=== PATIENT | female | born 1940 | race Caucasian/White ===

== ENCOUNTER 2016-04-25 08:51 | Emergency (ER) | payer OTHER ==
[~2016-04-25] VITALS: Ht 165.1 cm; Wt 65.0 kg
[~2016-04-25 08:51] MED LIST: CHOL1TAB46 PO; DIPH1TAB98 PO; FRRG PO; GLUCTAB7 PO; HYZ/50125 PO; RIVA1TAB4 PO; SIMV20TA2 PO; VERA120T8 PO
[2016-04-25 08:53] VITALS: TEMP 36.6; Ht 165.1 cm; Wt 65.0 kg
[2016-04-25] MEDS ORDERED: OXYCODONE HCL IR 5 MG TAB (IMMEDIATE RELEASE) PO STA (09:19)
--- NOTE | 2016-04-25 09:21 | EMERGENCY ROOM VISIT NOTE ---
History Report prepared by Clara: Mary Jane Vicente Under the Supervision of: Dr. Matt Snow D.O. First contact with patient: 08:59 Chief Complaint: WRIST PAIN Stated Complaint: WRIST INJURY/PAIN History of Present Illness The patient is a 75 year old female who presents to the Emergency Room with complaints of persistent pain to her right wrist after suffering a fall 5 days prior to arrival. Currently, she rates her discomfort as an 8/10, which worsens with movement and has not been improved after placing ice on it or taking Tylenol. At the time of onset, the patient was bending over on her porch to hot die picker her glasses when she lost her balance and fell, catching herself with her right wrist before falling to the stone covered landscaping. During the fall , the patient did bump the right side of her head, and she states that she was "stunned" as she had to collect her thoughts to get herself up, but she denies losing consciousness. She also notes mild pain to her left wrist, but she denies suffering injuries to her neck, back, chest, abdomen, or pelvis secondary to the fall. Since suffering the injury to her wrists, patient has been attempting to use ice, but as the pain has persisted, she came to the ED for further evaluation. Patient is currently on Xarelto. She is occasionally drinks alcohol and she is a former smoker. She does note some chronic pain to her left upper leg but she attributes this to lifting weights in physical therapy status post left hip replacement. Source of History: patient Onset: 901 Position: wrist (right) Symptom Intensity: 8/10 Timing: worsening Modifying Factors (Worsening): movement Modifying Factors (Relieving): other (No relief with ice) Associated Symptoms: No LOC, No back pain, No chest pain, No neck pain Note: Patient also has pain to her left wrist. She denies pain to her pelvis or lower extremities. Review of Systems See HPI for pertinent positives & negatives. A total of 10 systems reviewed and were otherwise negative. Past Medical & Surgical Medical Problems: (1) Arthritis (2) Dyslipidemia (3) HTN (hypertension) (4) Osteopenia Social History Smoking Status: Former Smoker Marital Status: Housing Status: lives with significant other Occupation Status: retired Current/Historical Medications Scheduled Atorvastatin (Atorvastatin Calcium), 20 MG PO DAILY Cholecalciferol (Vitamin D3), 5,000 UNITS PO QAM Zbaoidlyutw-Cbxrtyswbal-Khy C- (Glucosamine Chondroitin), 1 TAB PO BID Losartan Potassium (Losartan Potassium), 25 MG PO DAILY Omeprazole (Prilosec), 40 MG PO DAILY Rivaroxaban (Xarelto), 20 MG PO QPM Verapamil Hcl (Calan Sr Ext Rel), 120 MG PO QPM Scheduled PRN Oxycodone Immediate Rel Tab (Roxicodone Ir), 1 TAB PO Q4H PRN for Severe Pain Allergies Coded Allergies: Sulfa Antibiotics (Verified Allergy, Unknown, UNKNOWN, 04/25/16) Physical Exam Vital Signs Date Time Temp Pulse Resp B/P Pulse Ox O2 Delivery O2 Flow Rate FiO2 04/25/16 11:19 75 20 140/70 97 04/25/16 10:42 72 20 146/86 96 Room Air 04/25/16 08:53 36.6 74 18 163/63 97 Room Air Physical Exam GENERAL: Patient is awake, alert, and in no acute distress. Patient is resting comfortably and showing no signs of anxiety HEAD: Ecchymosis over the right side of the forehead. EYES: The conjunctivae are clear. The pupils are round and reactive. EARS, NOSE, MOUTH AND THROAT: The nose is without any evidence of any deformity. Mucous membranes are moist tongue is midline NECK: The neck is nontender and supple. RESPIRATORY: Normal respiratory effort is noted there is no evidence of wheezing rhonchi or rales CARDIOVASCULAR: Regular rate and rhythm noted there no murmurs rubs or gallops normal S1 normal S2 GASTROINTESTINAL: The abdomen is soft. Bowel sounds are present in all quadrants. Abdomen is nontender BACK: No midline tenderness or or step-off noted range of motion in flexion extension as well as rotation no signs of muscle spasm noted MUSCULOSKELETAL/EXTREMITIES: Tenderness over both wrists at the distal radius. ROM was painful but intact. Ecchymosis over the right medial forearm. SKIN: Trace edema, bilaterally. There is no obvious evidence of any rash. There are no petechiae, pallor or cyanosis noted. NEUROLOGIC: Patient is awake alert and oriented x3. Medical Decision & Procedures ER Provider Diagnostic Interpretation: X-ray results as stated below per interpretation by me and the radiologist. CT results as stated below per my review and radiologist interpretation. PELVIS 1 OR 2 VIEW ROUTINE CLINICAL HISTORY: Fall. Left femur pain. COMPARISON STUDY: Pelvis radiograph October 05, 2014. FINDINGS: Alignment of the total left hip arthroplasty is anatomic. No acute fracture within the pelvis or hips is identified. There is mixed lucency and sclerosis of the lateral aspect the right femoral head. This is not acute. IMPRESSION: 1. No acute fracture within the pelvis or hips. 2. Status post total left hip arthroplasty. Anatomic alignment. Hardware intact. 3. Subchondral lucency and sclerosis with cortical irregularity of the lateral right femoral head. This is not acute and could reflect arthritis or avascular necrosis. Electronically signed by: Jaquan Espinoza M.D. 04/25/2016 9:46 AM LEFT WRIST W/NAVICULAR MIN 3 VIEWS CLINICAL HISTORY: Fall. Wrist pain. COMPARISON STUDY: None. FINDINGS: Soft tissue swelling within the left wrist. No acute fracture or dislocation. The scaphoid appears intact. IMPRESSION: No fracture or dislocation within the left wrist. Electronically signed by: Josr Cruz M.D. 04/25/2016 9:[address] OF THE HEAD WITHOUT CONTRAST CLINICAL HISTORY: Fall. COMPARISON STUDY: Head CT August 04, 2011. CT DOSE: 1107.53 mGy.cm TECHNIQUE: Helical axial images of the head were obtained without IV contrast. Automated exposure control was utilized for the study. FINDINGS: No acute intracranial hemorrhage, midline shift or mass effect is present. Ventricular system is stable. Basilar cisterns are patent. There are no extra-axial collections. White matter hypodensities are unchanged and suggest small vessel disease. There is a small right supraorbital scalp contusion. There is no calvarial fracture. Globes are intact. IMPRESSION: 1. No acute intracranial findings. 2. Small right supraorbital contusion. No calvarial fracture. Electronically signed by: Jaquan Espinoza M.D. 04/25/2016 9:48 AM LEFT FEMUR 2 VIEWS ROUTINE CLINICAL HISTORY: Left femur pain status post trauma COMPARISON: Pelvis and left hip dated 10/05/2014 DISCUSSION: There are postsurgical changes of a total left hip arthroplasty. No acute fractures or dislocations are visualized. There are moderate osteoarthritic changes within the knee. IMPRESSION: Postsurgical change. No acute fractures or dislocations identified Electronically signed by: Cayden Miner M.D. 04/25/2016 9:[address] DOSE: HISTORY: Neck pain. fall TECHNIQUE: Multiaxial CT images of the cervical spine were performed and reformatted in the sagittal and coronal plane without the use of contrast. COMPARISON: None. FINDINGS: No fractures. No subluxation. Prevertebral soft tissues and the C1-C2 interval are intact. No pneumothorax. Mild disc space narrowing at C4-C5 and C5-C6. Multiple fused cervical spine facets. IMPRESSION: No fractures within the cervical spine. Electronically signed by: Josr Cruz M.D. 04/25/2016 9:55 AM Medications Administered Medications (Trade) Dose Ordered Sig/Anna Route Start Time Stop Time Status Last Admin Dose Admin Oxycodone HCl (Roxicodone Immediate Rel Tab) 5 mg NOW STAT PO 04/25/16 09:19 04/25/16 09:21 DC 04/25/16 09:46 5 MG ED Course 0902: The patient was evaluated in room B9. A complete history and physical examination were performed. 0919: Oxycodone HCl 5 mg PO was ordered. 0930: Zofran 4 mg PO was ordered. 1036: Upon reevaluation, patient was doing well and was resting more comfortably. I updated her on the results of her radiology reports that had returned. Some are still pending. 1104: I reevaluated the patient at this time and updated her on her remaining reports. A splint will be given. She will follow up with her primary orthopedist. Additional discharge instructions were discussed. Patient verbalized her understanding and agreement with the treatment plan, and she is now ready for disposition. Medical Decision Differential diagnosis: Etiologies such as fracture, dislocation, neurovascular compromise, compartment syndrome, soft tissue injury, as well as others were entertained. Nursing notes reviewed. The patient is a 75-year-old female who presented to the emergency department after a fall. The patient fell a few days ago she struck her head and also hurt both wrists. She also had left eye pain. The patient did not have any focal neurologic deficits but she did have signs of trauma on the right side of her head. She is also taking oral anticoagulation. Most of her pain appear to be over her right wrist. Left wrist x-ray did not show any signs of bony abnormality. She did have a distal radius fracture on the right wrist however. Her left eye did not show any signs of abnormality but she was found have some degree of arthritic changes in the right hip. CT the head and neck did not show any acute intercranial abnormality or cervical spine fracture. She was encouraged to rest and avoid any strenuous activity. She was placed. She was treated with pain medication in the emergency department. She was encouraged to follow-up with her primary orthopedic physician for follow-up of the right wrist but also to discuss the findings in her right hip which do not appear to be painful at this time. She was also encouraged to return to the emergency department immediately if symptoms change worsen or if the need arises. Impression Primary Impression: Fall Additional Impressions: Closed head injury, Contusion of left thigh, Fracture of right distal radius, Left wrist pain Scribe Attestation The scribe's documentation has been prepared under my direction and personally reviewed by me in its entirety. I confirm that the note above accurately reflects all work, treatment, procedures, and medical decision making performed by me. Departure Information Dispostion Home / Self-Care Prescriptions Oxycodone Immediate Rel Tab (ROXICODONE IR) 5 Mg Tab 1 TAB PO Q4H Y for Severe Pain, #24 TAB Prov: Matt Snow, DO 04/25/16 Referrals Dago Lozada Jr,D.O. (PCP) Forms HOME CARE DOCUMENTATION FORM, IMPORTANT VISIT INFORMATION, WORK / SCHOOL INSTRUCTIONS Patient Instructions A Signature Page, My [facility] [employer] Additional Instructions Continue medications as prescribed. Call your primary orthopedic physician to schedule a follow-up appointment. Continue using Motrin and Tylenol as directed for mild pain.
[2016-04-25] MEDS ORDERED: ONDANSETRON 4MG OD TAB PO ONE (09:30)
--- NOTE | 2016-04-25 09:43 | DIAGNOSTIC IMAGING REPORT ---
LEFT FEMUR 2 VIEWS ROUTINE CLINICAL HISTORY: Left femur pain status post trauma COMPARISON: Pelvis and left hip dated 10/05/2014 DISCUSSION: There are postsurgical changes of a total left hip arthroplasty. No acute fractures or dislocations are visualized. There are moderate osteoarthritic changes within the knee. IMPRESSION: Postsurgical change. No acute fractures or dislocations identified Electronically signed by: Cayden Miner M.D. 04/25/2016 9:41 AM
--- NOTE | 2016-04-25 09:47 | DIAGNOSTIC IMAGING REPORT ---
PELVIS 1 OR 2 VIEW ROUTINE CLINICAL HISTORY: Fall. Left femur pain. COMPARISON STUDY: Pelvis radiograph October 05, 2014. FINDINGS: Alignment of the total left hip arthroplasty is anatomic. No acute fracture within the pelvis or hips is identified. There is mixed lucency and sclerosis of the lateral aspect the right femoral head. This is not acute. IMPRESSION: 1. No acute fracture within the pelvis or hips. 2. Status post total left hip arthroplasty. Anatomic alignment. Hardware intact. 3. Subchondral lucency and sclerosis with cortical irregularity of the lateral right femoral head. This is not acute and could reflect arthritis or avascular necrosis. Electronically signed by: Jaquan Espinoza M.D. 04/25/2016 9:46 AM
--- NOTE | 2016-04-25 09:50 | DIAGNOSTIC IMAGING REPORT ---
LEFT WRIST W/NAVICULAR MIN 3 VIEWS CLINICAL HISTORY: Fall. Wrist pain. COMPARISON STUDY: None. FINDINGS: Soft tissue swelling within the left wrist. No acute fracture or dislocation. The scaphoid appears intact. IMPRESSION: No fracture or dislocation within the left wrist. Electronically signed by: Josr Cruz M.D. 04/25/2016 9:48 AM
--- NOTE | 2016-04-25 09:50 | DIAGNOSTIC IMAGING REPORT ---
CT OF THE HEAD WITHOUT CONTRAST CLINICAL HISTORY: Fall. COMPARISON STUDY: Head CT August 04, 2011. CT DOSE: 1107.53 mGy.cm TECHNIQUE: Helical axial images of the head were obtained without IV contrast. Automated exposure control was utilized for the study. FINDINGS: No acute intracranial hemorrhage, midline shift or mass effect is present. Ventricular system is stable. Basilar cisterns are patent. There are no extra-axial collections. White matter hypodensities are unchanged and suggest small vessel disease. There is a small right supraorbital scalp contusion. There is no calvarial fracture. Globes are intact. IMPRESSION: 1. No acute intracranial findings. 2. Small right supraorbital contusion. No calvarial fracture. Electronically signed by: Jaquan Espinoza M.D. 04/25/2016 9:48 AM
[2016-04-25] MEDS ORDERED: OMEP20CA9 PO (09:51)
[2016-04-25] MEDS ORDERED: CZR25 PO (09:51)
[2016-04-25] MEDS ORDERED: LPT/20 PO (09:51)
--- NOTE | 2016-04-25 09:57 | DIAGNOSTIC IMAGING REPORT ---
CERVICAL SPINE CT CT DOSE: HISTORY: Neck pain. fall TECHNIQUE: Multiaxial CT images of the cervical spine were performed and reformatted in the sagittal and coronal plane without the use of contrast. COMPARISON: None. FINDINGS: No fractures. No subluxation. Prevertebral soft tissues and the C1-C2 interval are intact. No pneumothorax. Mild disc space narrowing at C4-C5 and C5-C6. Multiple fused cervical spine facets. IMPRESSION: No fractures within the cervical spine. Electronically signed by: Josr Cruz M.D. 04/25/2016 9:55 AM
--- NOTE | 2016-04-25 10:49 | DIAGNOSTIC IMAGING REPORT ---
RIGHT WRIST W/NAVICULAR MIN 3 VIEWS CLINICAL HISTORY: Right wrist pain. COMPARISON: Right hand radiographs July 20, 2013. FINDINGS: The scaphoid is intact. Severe arthritis of the triscaphe joint and right first carpometacarpal joint is noted as well as degenerative changes of the distal radioulnar articulation. There is an equivocal nondisplaced fracture of the distal aspect of the distal right radius. IMPRESSION: Equivocal nondisplaced distal right radial fracture, as described above. Electronically signed by: Jaquan Espinoza M.D. 04/25/2016 10:47 AM
[2016-04-25] MEDS ORDERED: OXYC1TAB3 PO (11:05)
[2016-04-25 11:19] VITALS: BP 140/70; PULSE 75; O2SAT 97
== END 2016-04-25 11:19 | disposition home or self-care (01) ==
LOC: C.EDB 08:52
DX: S00.03XA Contusion of scalp, initial encounter (principal); S70.12XA Contusion of left thigh, initial encounter; S52.501A Unspecified fracture of the lower end of right radius, initial encounter for closed fracture; M25.532 Pain in left wrist; E78.5 Hyperlipidemia, unspecified; I10 Essential (primary) hypertension; Z87.891 Personal history of nicotine dependence; W17.89XA Other fall from one level to another, initial encounter; Y93.89 Activity, other specified; Y92.018 Other place in single-family (private) house as the place of occurrence of the external cause; Y99.8 Other external cause status

== ENCOUNTER → 2016-06-26 | Outpatient (CLI) | payer OTHER ==
[~2016-06-26] MED LIST changes: +CZR25 PO; -DIPH1TAB98 PO; +ESCI10TA17 PO; -FRRG PO; -HYZ/50125 PO; +LPT/20 PO; +OMEP20CA9 PO; +OXYC1TAB3 PO; +PRLSR20 PO; -SIMV20TA2 PO
--- NOTE | 2016-06-26 10:31 | DIAGNOSTIC IMAGING REPORT ---
BILATERAL KNEES 3 VIEWS EACH CLINICAL HISTORY: CHRONIC B/L KNEE PAIN Right COMPARISON STUDY: Bilateral knees 06/17/2007. FINDINGS: No acute fracture or dislocation within the right or left knee. Moderate cartilage space narrowing within the lateral compartments of the bilateral knees with associated marginal osteophytes. This has progressed in the interval. No significant knee effusion. There is mild bilateral patellofemoral osteoarthritis. IMPRESSION: 1. No fractures. 2. Mild to moderate bilateral knee osteoarthritis as described above. This has progressed. Electronically signed by: Josr Cruz M.D. 06/26/2016 10:29 AM Dictated Date/Time: 06/26/2016 10:27 AM
== END | disposition home or self-care (01) ==
LOC: C.RDSM 10:03
PROVIDERS: ATTEND Internal Medicine
DX: M25.569 Pain in unspecified knee (principal); M17.0 Bilateral primary osteoarthritis of knee

== ENCOUNTER → 2016-08-17 | Outpatient (CLI) | payer OTHER ==
[~2016-08-17] MED LIST changes: +ACET-1256 PO; +ACET-24 PO; +ADVAIR INH; +CHOL1000 PO; +DIPH1TAB98 PO; +FLUT0.15 INTNAS; +FRRG PO; +KETOCONAZOLE TOP; +MULT-190 PO; +ULT50X PO
[2016-08-17 13:14] LABS: BASO % 0.2 %; BASO ABS # 0.01 K/uL (0-0.2); COMPLETE YES; EOS % 4.9 %; IG% 0.5 %; LYMPH % 25.1 %; LYMPH ABS # 1.08 K/uL (1.2-3.4); MEAN CELL VOLUME 88.7 fL (80-100); MEAN CORPUSCULAR HGB CONC 33.9 g/dl (32-36); MEAN PLATELET VOLUME 8.5 fL (7.4-10.4); MONO % 13.5 %; NEUT % 55.8 %; PLATELET COUNT 293 K/uL (130-400); RED BLOOD COUNT 4.06 M/uL (4.2-5.4); WHITE BLOOD COUNT 4.31 K/uL (4.8-10.8)
[2016-08-17 13:59] LABS: ALT/SGPT 34 U/L (12-78); BLOOD UREA NITROGEN 13 mg/dl (7-18); C-REACTIVE PROTEIN < 0.29 mg/dl (0-0.29); CARBON DIOXIDE 27 mmol/L (21-32); CHLORIDE 105 mmol/L (98-107); CREATININE 0.65 mg/dl (0.60-1.20); GLUCOSE 78 mg/dl (70-99); POTASSIUM 4.5 mmol/L (3.5-5.1); SODIUM 139 mmol/L (136-145)
[2016-08-17 14:02] LABS: CALCIUM 8.9 mg/dl (8.5-10.1)
[2016-08-17 14:03] LABS: CREATININE 0.65 mg/dl (0.60-1.20)
[2016-08-17 14:09] LABS: ALB/GLOB RATIO 1.2 (0.9-2); ALKALINE PHOSPHATASE 160 U/L (45-117); AST/SGOT 31 U/L (15-37); RHEUMATOID FACTOR < 10.0 U/mL (0-15)
[2016-08-17 16:37] LABS: LYME DISEASE AB IGM NEG (NEG)
[2016-08-17 16:40] LABS: LYME DISEASE AB IGG NEG (NEG)
[2016-08-20 15:44] LABS: ALBUMIN 3.8 G/DL (3.8-4.8); COLLECTION SAMPLE Venous; GAMMA GLOBULIN 0.9 G/DL (0.8-1.7); LEAD BLOOD 2 mcg/dL (<5); TOTAL PROTEIN 6.5 G/DL (6.2-8.3)
[2016-08-21 02:31] LABS: RAPID PLASMA REAGIN NONREACTIVE (NONREACT)
--- NOTE | 2016-08-24 10:05 | CODING QUERY MEDICAL NECESSITY ---
CQSUPPORTING DIAGNOSIS NEEDED A supporting diagnosis is required for the test/procedure performed on this patient in order for us to be reimbursed by the patient's insurance. Please provide a supporting diagnosis for the following test/procedure listed below next to the test name along with your signature. *If there is no additional diagnosis for this patient that would support the following test/procedure please document that below next to the test/procedure. Test(s)/Procedure(s) that require a supporting diagnosis: DOS 08/17/16 VITAMIN D TEST SCREENING SEXUALLY TRANSMITTED DISEASE TEST Provider Signature: Date: Thank you Rima Wagner Health Information Management Once completed, please kindly fax back to [phone] For questions please call [phone]
== END | disposition home or self-care (01) ==
LOC: C.LAB 12:14
PROVIDERS: ATTEND Psychiatry & Neurology Neurology
DX: I10 Essential (primary) hypertension (principal); E78.5 Hyperlipidemia, unspecified; G62.9 Polyneuropathy, unspecified; R48.2 Apraxia; I67.9 Cerebrovascular disease, unspecified; R41.3 Other amnesia; E55.9 Vitamin D deficiency, unspecified; N89.8 Other specified noninflammatory disorders of vagina

== ENCOUNTER → 2016-08-21 | Outpatient (CLI) | payer OTHER ==
[~2016-08-21] MED LIST changes: +GADAVIST IV PRN
--- NOTE | 2016-08-21 13:53 | DIAGNOSTIC IMAGING REPORT ---
MRI OF THE BRAIN WITHOUT AND WITH IV CONTRAST CLINICAL HISTORY: R41.3 Memory lossR48.2 Gait puhsubuG33.9 Cerebrovascular disease COMPARISON STUDY: Noncontrast head CT dated 04/25/2016, MRI the brain dated 12/12/2009 TECHNIQUE: MRI of the brain was performed from the vertex to the skull base utilizing various T1 and T2 weighted sequences. Following the IV administration of 6 mL of Gadavist contrast, additional enhanced images were obtained. FINDINGS: Sagittal T1, axial diffusion, proton density and T2 weighted axial, coronal FLAIR, and pre and post axial T1-weighted images were acquired. These were supplemented with post gadolinium coronal T1 weighted images. No intra or extra-axial mass lesions are visualized. Axial diffusion-weighted images reveal no evidence of acute or subacute infarction. There is no evidence of ventricular dilatation. Proton density T2-weighted and FLAIR images reveal scattered foci of increased T2 signal within the white matter, likely on a small vessel basis. The 6 mm focus of increased T2 signal within the left subcortical white matter remains unchanged from November 2009. There are no abnormal flow voids. 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 IMPRESSION: 1. No acute intracranial findings 2. No evidence of acute or subacute infarction 3. Prominent left occipital developmental venous anomaly Electronically signed by: Cayden Miner M.D. 08/21/2016 1:51 PM Dictated Date/Time: 08/21/2016 1:48 PM
== END | disposition home or self-care (01) ==
LOC: C.MRI 12:25
PROVIDERS: ATTEND Psychiatry & Neurology Neurology
DX: I67.9 Cerebrovascular disease, unspecified (principal); R41.3 Other amnesia; R48.2 Apraxia

== ENCOUNTER → 2016-12-11 | Outpatient (CLI) | payer OTHER ==
[~2016-12-11] MED LIST changes: -ACET-1256 PO; -ACET-24 PO; -ADVAIR INH; -CHOL1000 PO; -DIPH1TAB98 PO; -FLUT0.15 INTNAS; -FRRG PO; -GADAVIST IV PRN; -KETOCONAZOLE TOP; -MULT-190 PO; -OXYC1TAB3 PO; -ULT50X PO
[2016-12-11 12:22] LABS: BASO % 0.5 %; BASO ABS # 0.02 K/uL (0-0.2); COMPLETE YES; EOS % 9.1 %; HEMATOCRIT 38.9 % (37-47); IG% 0.2 %; LYMPH % 20.2 %; LYMPH ABS # 0.84 K/uL (1.2-3.4); MEAN CORPUSCULAR HEMOGLOBIN 29.9 pg (25-34); MEAN CORPUSCULAR HGB CONC 33.2 g/dl (32-36); MEAN PLATELET VOLUME 8.5 fL (7.4-10.4); MONO % 20.7 %; NEUT % 49.3 %; PLATELET COUNT 296 K/uL (130-400); RED BLOOD COUNT 4.32 M/uL (4.2-5.4); WHITE BLOOD COUNT 4.16 K/uL (4.8-10.8)
[2016-12-11 12:41] LABS: ALT/SGPT 20 U/L (12-78); AST/SGOT 13 U/L (15-37); BLOOD UREA NITROGEN 9 mg/dl (7-18); BUN/CREATININE RATIO 12.1 (10-20); CALCIUM 8.4 mg/dl (8.5-10.1); CARBON DIOXIDE 28 mmol/L (21-32); CHLORIDE 104 mmol/L (98-107); CREATININE 0.75 mg/dl (0.60-1.20); GLUCOSE 76 mg/dl (70-99); POTASSIUM 4.3 mmol/L (3.5-5.1); SODIUM 136 mmol/L (136-145)
[2016-12-11 12:52] LABS: CHOLESTEROL 193 mg/dl (0-200); CHOLESTEROL/HDL RATIO 3.1; HDL CHOLESTEROL 63 mg/dl; LDL CHOLESTEROL CALCULATED 114 mg/dl; TRIGLYCERIDES 82 mg/dl (0-150); VERY LOW DENSITY LIPOPROT CALC 16 mg/dl
== END | disposition home or self-care (01) ==
LOC: C.LABPVFM 08:10
DX: E78.5 Hyperlipidemia, unspecified (principal); I10 Essential (primary) hypertension; R53.83 Other fatigue

== ENCOUNTER 2017-01-24 07:48 | Emergency (ER) | payer OTHER ==
[~2017-01-24] VITALS: Ht 165.1 cm; Wt 63.6 kg
[~2017-01-24 07:48] MED LIST changes: -ESCI10TA17 PO; -PRLSR20 PO
[2017-01-24 07:52] VITALS: TEMP 36.7; Ht 165.1 cm; Wt 63.6 kg
--- NOTE | 2017-01-24 08:11 | EMERGENCY ROOM VISIT NOTE ---
History Report prepared by Clara: Sherri Monroy Under the Supervision of: Dr. Joni Orr M.D. First contact with patient: 08:02 Chief Complaint: FALL Stated Complaint: FELL ON CONCRETE X 2 DAYS, EDEMA History of Present Illness The patient is a 76 year old female who presents to the Emergency Room with complaints of worsening bruising to her left elbow that began two days ago. The patient reports that two days ago she fell due to losing her balance. She states that she fell onto her left elbow onto a concrete sidewalk. The patient denies any head injury, loss of consciousness, or left shoulder pain. She states that for the past two days she noticed a stinging pain to her left elbow. The patient states that she gradually noticed bruising develop. She states that she is on Xarelto. The patient states that she has used ice on the area. She additionally notes falling onto her left hip, but denies any bruising or pain to the area. Source of History: patient Onset: two days ago Position: elbow (left) Quality: other (bruising) Timing: worsening Associated Symptoms: No LOC Note: Associated Symptoms: pain to her left elbow Review of Systems See HPI for pertinent positives & negatives. A total of 6 systems reviewed and were otherwise negative. Past Medical & Surgical Medical Problems: (1) Arthritis (2) Dyslipidemia (3) HTN (hypertension) (4) Osteopenia Family History Hypertension Social History Smoking Status: Former Smoker Marital Status: Housing Status: lives with significant other Occupation Status: retired Current/Historical Medications Scheduled Cholecalciferol (Vitamin D3), 5,000 UNITS PO QAM Escitalopram (Lexapro), 10 MG PO DAILY Bttfdtbkmnf-Qksgooaiaia-Tfm C- (Glucosamine Chondroitin), 1 TAB PO DAILY Losartan Potassium (Losartan Potassium), 25 MG PO DAILY Omeprazole (Prilosec), 40 MG PO DAILY Rivaroxaban (Xarelto), 20 MG PO QAM Verapamil Hcl (Calan Sr Ext Rel), 120 MG PO QPM Allergies Coded Allergies: Sulfa Antibiotics (Verified Allergy, Unknown, UNKNOWN, 04/25/16) Physical Exam Vital Signs Date Time Temp Pulse Resp B/P (MAP) Pulse Ox O2 Delivery O2 Flow Rate FiO2 01/24/17 09:21 65 18 170/82 97 01/24/17 09:12 65 18 170/82 97 Room Air 01/24/17 07:52 36.7 89 20 143/81 97 Room Air Physical Exam GENERAL: Patient is in no acute distress. EXTREMITIES: Contusion about the posterior left arm from the mid bicep to the mid forearm, no evidence for cellulitis or active bleeding, no obvious elbow or joint effusion, no pain to palpate the bones of the elbow, NVI distally in the left upper extremity. NEUROLOGIC: Oriented x 3, no acute motor or sensory deficits, no focal weakness. Medical Decision & Procedures ER Provider Diagnostic Interpretation: X-ray results as stated below per interpretation by me and the radiologist: LEFT ELBOW 3 VIEWS CLINICAL HISTORY: Fall with left elbow pain. FINDINGS: 3 views of the left elbow are obtained. No prior studies are available for comparison at the time of dictation. The skeletal structures are osteopenic. No distracted fracture is identified. The elbow joint appears in anatomic alignment. There is an elbow joint effusion. Significant soft tissue edema is present around the elbow, greatest medially. IMPRESSION: 1. No distracted fracture is identified. 2. There is a joint effusion as well as soft tissue edema. These findings are highly concerning for occult fracture, statistically likely to involve the radial head in this age group. Electronically signed by: Joni Foster M.D. 01/24/2017 8:43 AM Dictated Date/Time: 01/24/2017 8:32 AM ED Course 0803: The patient was evaluated in room B10. A complete history and physical exam was performed. 0908: I reevaluated the patient and she is resting comfortably. I discussed the exam findings with her and I discussed the treatment plan. She verbalized complete understanding and agreement. She is ready to go home. Medical Decision The patient is a 76 year old female who presents to the ED with complaints of left elbow bruising. Differential diagnoses considered include Fracture, hematoma, dislocation, neurovascular compromise. The patient presents with a contusion and injury to her left elbow. She is on Xarelto. She fell a few days ago. The patient was neurovascularly intact distally. There was no evidence for cellulitis or active bleeding. Films of the left elbow show an effusion and are concerning for occult fracture. The patient was placed in a left arm sling. She is being referred to orthopedics for further potential care. She was happy with her care and plan. Medication Reconcilliation Current Medication List: was personally reviewed by me Blood Pressure Screening Patient's blood pressure: Elevated blood pressure Blood pressure disposition: Elevated BP felt to be situational, Did not require urgent referral Impression Primary Impression: Left elbow contusion Additional Impression: Coagulopathy Scribe Attestation The scribe's documentation has been prepared under my direction and personally reviewed by me in its entirety. I confirm that the note above accurately reflects all work, treatment, procedures, and medical decision making performed by me. Departure Information Dispostion Home / Self-Care Referrals Dago Lozada Jr,D.O. (PCP) Forms HOME CARE DOCUMENTATION FORM, IMPORTANT VISIT INFORMATION Patient Instructions My [facility] Additional Instructions ice wear the sling for comfort call orthopedics and see them this week for clearance return for fever, worsening pain or redness Problem Qualifiers
--- NOTE | 2017-01-24 08:45 | DIAGNOSTIC IMAGING REPORT ---
LEFT ELBOW 3 VIEWS CLINICAL HISTORY: Fall with left elbow pain. FINDINGS: 3 views of the left elbow are obtained. No prior studies are available for comparison at the time of dictation. The skeletal structures are osteopenic. No distracted fracture is identified. The elbow joint appears in anatomic alignment. There is an elbow joint effusion. Significant soft tissue edema is present around the elbow, greatest medially. IMPRESSION: 1. No distracted fracture is identified. 2. There is a joint effusion as well as soft tissue edema. These findings are highly concerning for occult fracture, statistically likely to involve the radial head in this age group. Electronically signed by: Joni Foster M.D. 01/24/2017 8:43 AM Dictated Date/Time: 01/24/2017 8:32 AM
[2017-01-24 09:21] VITALS: BP 170/82; PULSE 65; O2SAT 97
[2017-01-24] MEDS ORDERED: PRLSR20 PO (10:21)
[2017-01-24] MEDS ORDERED: ESCI10TA17 PO (10:21)
== END 2017-01-24 09:21 | disposition home or self-care (01) ==
LOC: C.EDB 07:50
DX: S50.02XA Contusion of left elbow, initial encounter (principal); W19.XXXA Unspecified fall, initial encounter; Y92.480 Sidewalk as the place of occurrence of the external cause; Z79.01 Long term (current) use of anticoagulants; M19.90 Unspecified osteoarthritis, unspecified site; E78.5 Hyperlipidemia, unspecified; I10 Essential (primary) hypertension; M85.80 Other specified disorders of bone density and structure, unspecified site; Z82.49 Family history of ischemic heart disease and other diseases of the circulatory system; Z87.891 Personal history of nicotine dependence; Z79.899 Other long term (current) drug therapy

== ENCOUNTER 2017-03-22 05:16 | Inpatient (IN) | payer OTHER ==
[2017-03-01 11:07] VITALS: BMI 22.0
--- NOTE | 2017-03-01 11:52 | PAT Medication Instructions ---
Service Date Mar 01, 2017. Current Home Medication List Acetaminophen (Tylenol), 1,000 MG PO PRN Cholecalciferol (Vitamin D3), 5,000 UNITS PO QPM Diphenhydramine Hcl (Sleep) (Sleep Aid), 25 MG PO HS PRN for RN Escitalopram (Lexapro), 10 MG PO QAM Fluticasone Propionate (Nasal) (Flonase Allergy Relief), 2 SPRAYS INTNAS BID Flcnfdwcsbk-Amianukdpro-Ram C- (Glucosamine Chondroitin), 1 TAB PO QPM Losartan Potassium (Losartan Potassium), 25 MG PO QAM Ocuvite Preservision (Ocuvite Preservision), 1 TAB PO BID Omeprazole (Prilosec), 40 MG PO QPM Rivaroxaban (Xarelto), 20 MG PO QAM Verapamil Hcl (Calan Sr Ext Rel), 120 MG PO QPM [Advair], 2 PUFFS INH PRN [Ketoconazole], 1 DOSE TOP 2XWEEK Medication Instructions For Your Scheduled Surgery - Hold the following medications 2 weeks prior to surgery: Kzswfidzkax-Vhsxlafjmaw-Jra C- (Glucosamine Chondroitin), 1 TAB PO QPM - Hold the following medications 3 days prior to surgery: Rivaroxaban (Xarelto), 20 MG PO QAM - Hold the following medications 24 hours prior to surgery: [Ketoconazole], 1 DOSE TOP 2XWEEK - Hold the following medications the morning of surgery: Losartan Potassium (Cozaar), 25 MG PO QAM Ocuvite Preservision (Ocuvite Preservision), 1 TAB PO BID - Take the following medications the morning of surgery with a sip of water OTHERWISE NOTHING TO EAT OR DRINK AFTER MIDNIGHT: Acetaminophen (Tylenol), 1,000 MG PO PRN Escitalopram (Lexapro), 10 MG PO QAM Fluticasone Propionate (Nasal) (Flonase Allergy Relief), 2 SPRAYS INTNAS BID [Advair], 2 PUFFS INH PRN - Take the following medications as scheduled the night before surgery: Acetaminophen (Tylenol), 1,000 MG PO PRN Omeprazole (Prilosec), 40 MG PO QPM Cholecalciferol (Vitamin D3), 5,000 UNITS PO QPM Verapamil Hcl (Calan Sr Ext Rel), 120 MG PO QPM Diphenhydramine Hcl (Sleep) (Sleep Aid), 25 MG PO HS PRN Fluticasone Propionate (Nasal) (Flonase Allergy Relief), 2 SPRAYS INTNAS BID Ocuvite Preservision (Ocuvite Preservision), 1 TAB PO BID [Advair], 2 PUFFS INH PRN If you have any questions please call us at [phone] or [phone] or [phone]
[2017-03-01 12:21] LABS: INR 1.1 (0.9-1.1); PARTIAL THROMBOPLASTIN RATIO 1.4
--- NOTE | 2017-03-01 12:28 | DIAGNOSTIC IMAGING REPORT ---
CHEST PREADMISSION(PA/LAT) CLINICAL HISTORY: PAT preoperative evaluation COMPARISON STUDY: 09/02/2014 FINDINGS: Bipolar cardiac pacer with leads in good position. Lungs are clear. Calcified bilateral breast implants are again noted. IMPRESSION: No acute process. The above report was generated using voice recognition software. It may contain grammatical, syntax or spelling errors. Electronically signed by: Tunde Araujo M.D. 03/01/2017 12:27 PM Dictated Date/Time: 03/01/2017 12:27 PM
--- NOTE | 2017-03-15 11:38 | HISTORY & PHYSICAL EXAMINATION ---
DATE OF ADMISSION: 03/22/2017 CHIEF COMPLAINT: Right hip pain. HISTORY OF PRESENT ILLNESS: The patient is a 76-year-old female well known to me from a previous left hip replacement done a little over 2 years ago. She has had persistent progressive pain and discomfort in her right hip. 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 She was planning on having a hip replacement and then fell and broke her thumb little over a month ago. She had multiple falls and this is all related to her hip pain and discomfort. Her thumb has healed up now. She would like to proceed with right hip replacement. She describes groin pain. Also, reports of instability and giving out of her hip. She does no want to keep living like this and would like to have her hip fixed. PAST MEDICAL HISTORY: Significant for: 1. Atrial fibrillation followed by Dr. Saul with a pacemaker in place and on Xarelto. 2. Hypertension. 3. Elevated cholesterol. 4. Arthritis. PAST SURGICAL HISTORY: 1. Left hip replacement on 06/07/2014. 2. x2. 3. Pacemaker placement. 4. Hysterectomy. ALLERGIES: None. CURRENT MEDICATIONS: 1. Xarelto 20 mg a day. 2. Cozaar 25 mg a day. 3. Verapamil 120 mg a day. 4. Lexapro 10 mg a day. 5. Prilosec 40 mg a day. 6. Vitamin D once a day. 7. Glucosamine chondroitin. SOCIAL HISTORY: A 76-year-old female. She is . Lives with her and takes excellent care of her. FAMILY HISTORY: Negative for heart disease, diabetes, or blood clots. REVIEW OF SYSTEMS: Significant for atrial fibrillation. Denies any chest pain or shortness of breath. No history of DVT or PE. She is from [place]. She is on Xarelto. PHYSICAL EXAMINATION: GENERAL: Reveals a pleasant elderly female who looks to be in pretty good health. HEENT: Benign. NECK: Supple no lymphadenopathy. HEART: Has irregularly irregular rhythm. ABDOMEN: Soft, nontender, nondistended. EXTREMITIES: Grossly neurovascularly intact except as follows: Examination of the right hip and leg reveals the patient walks with significant limp. Leg lengths clinically appear equal. She has pretty good hip motion with about 10 degrees internal rotation. Negative straight leg raise. She is neurologically intact. X-RAYS: X-rays of the right hip reveal avascular necrosis with femoral head collapse. Pretty large large segment of AVN. Not a lot of secondary degenerative changes but flattening of the head. ASSESSMENT: A 76-year-old female with underlying atrial fibrillation with right hip avascular necrosis with collapse now indicated for surgical treatment. She really like to have her hip fixed. PLAN: We are going to take her to the operating room for right total hip replacement. The risks and benefits of this procedure were explained to the patient including but not limited to DVT, PE, , infection, neurological injury, vascular injury, bleeding problem, pain, limited range of motion, stiffness, failure to relieve her symptoms, incomplete relief of symptoms, need for further surgery in the future, fracture, leg length inequality, nerve palsy, etc. The patient understands and desires to proceed. Informed consent was obtained. She knows to stop her Xarelto 3 days preop. We will start her on prophylactic doses postop and then convert her to full dose 2-3 days after that. We will likely have Dr. Saul follow her in the hospital. She is planning to be discharged to home using home health program and her 's care. I will see her back 2 weeks postop.
[2017-03-22] VITALS (10 sets, daily range): BP systolic 127–196; BP diastolic 70–99; PULSE 61–68; TEMP 36.3–37; O2SAT 95–100; Ht 165.1 cm; Wt 62.3 kg
[~2017-03-22] VITALS: Ht 165.1 cm; Wt 62.3 kg
[~2017-03-22 05:16] MED LIST changes: +ACET-1256 PO; +ADVAIR INH; +CHOL1000 PO; -CHOL1TAB46 PO; +DIPH1TAB98 PO; +ESCI10TA17 PO; +FLUT0.15 INTNAS; +KETOCONAZOLE TOP; -LPT/20 PO; +MULT-190 PO
[2017-03-22] MEDS ORDERED: SCOPOLAMINE 1.5 MG TDSY TD SCH (06:00)
[2017-03-22] MEDS ORDERED: CEFAZOLIN 2000MG IV PUSH 10 ML IV SCH (06:00)
[2017-03-22] MEDS ORDERED: GABAPENTIN 300 MG CAP PO SCH (06:00)
[2017-03-22] MEDS ORDERED: FAMOTIDINE 20 MG TAB PO SCH (06:00)
[2017-03-22] MEDS ORDERED: TRANEXAMIC ACID INJ 1,000 MG in SYRINGE 0 ML IV SCH (06:00)
[2017-03-22] MEDS ORDERED: METOCLOPRAMIDE HCL 10 MG TAB PO SCH (06:00)
[2017-03-22] MEDS ORDERED: ACETAMINOPHEN 500 MG TAB PO SCH (06:00)
[2017-03-22] MEDS ORDERED: LACTATED RINGER'S 1000ML IV SCH (06:00)
[2017-03-22] MEDS ORDERED: LACTATED RINGER'S 1000ML 500 ML IV ONE (06:00)
[2017-03-22] MEDS ORDERED: LACTATED RINGER'S 1000ML 1,000 ML IV SCH (06:00)
[2017-03-22] MEDS ORDERED: BACITRACIN 50000 UNIT VIAL ONE (06:34)
[2017-03-22] MEDS ORDERED: BUPIVACAINE/EPINEPHRINE 0.5% MPF 1:200,000 30 ML VIAL ONE (06:34)
[2017-03-22] MEDS ORDERED: BUPIVACAINE 0.5 % 5 MG/1 ML PF 10ML VIAL ONE (06:37)
[2017-03-22] MEDS ORDERED: MIDAZOLAM HCL 1 MG/ML 2ML VIAL ONE ×3 (06:45→07:45)
[2017-03-22] MEDS ORDERED: FENTANYL CITRATE INJ 50 MCG/1 ML 2 ML VIAL ONE (06:45)
--- NOTE | 2017-03-22 06:56 | History & Physical Bridge Note ---
H&P Re-Evaluation Bridge Note: I have examined the patient, reviewed the History & Physical and in the interval since the performance of the History & Physical I have noted the following changes of clinical significance: No changes noted
[2017-03-22] MEDS ORDERED: PROPOFOL IV EMULSION 10 MG/ML 20 ML VIAL IV ONE (07:25)
[2017-03-22] MEDS ORDERED: LIDOCAINE HCL 2% 2 ML VIAL (20MG/ML) ONE (07:25)
[2017-03-22] MEDS ORDERED: ATROPINE SULFATE 0.1 MG/ML 5ML SYR IV PRN (07:30)
[2017-03-22] MEDS ORDERED: FENTANYL CITRATE INJ 50 MCG/1 ML 2 ML VIAL IV PRN (07:30)
[2017-03-22] MEDS ORDERED: EpHEDrine SULFATE INJ 50 MG/ML AMP IV PRN (07:30)
[2017-03-22] MEDS ORDERED: ONDANSETRON INJ 2 MG/ML 2 ML VIAL IV PRN ×2 (07:30→08:45)
[2017-03-22] MEDS ORDERED: PHENYLEPHRINE 100MCG/ML 5ML SYR ONE (07:57)
--- NOTE | 2017-03-22 08:33 | [facility] Post Operative Brief Note ---
Immediate Operative Summary Operative Date Mar 22, 2017. Pre-Operative Diagnosis Right Hip Avascular Necrosis Post-Operative Diagnosis Right Hip Avascular Necrosis Procedure(s) Performed Right Total Hip Arthroplasty--Uncemented Surgeon Dr. Hart Snaker Tractor Driver Surgeon(s) TUNDE Vargas Estimated Blood Loss 200 ml Findings Right Hip AVN Fluids (cc crystalloids) 1200 cc Specimens A. Right Femoral Head Drains None Anesthesia Spinal Complication(s) None Disposition Recovery Room / PACU
[2017-03-22] MEDS ORDERED: BISACODYL 10 MG SUPP PR PRN (08:45)
[2017-03-22] MEDS ORDERED: METOCLOPRAMIDE HCL INJ 5 MG/ML 2 ML VIAL IV PRN (08:45)
[2017-03-22] MEDS ORDERED: FLUTICASONE/SALMETEROL 250/50 (ADVAIR) 14 PUFF/1 INHALER INH PRN (08:45)
[2017-03-22] MEDS ORDERED: ALUMINUM/MAGNESIUM/SIMETH (MAALOX MAX) 30 ML UDC PO PRN (08:45)
[2017-03-22] MEDS ORDERED: MAGNESIUM HYDROXIDE SUSP 30 ML UDC PO PRN (08:45)
[2017-03-22] MEDS ORDERED: ZOLPIDEM TARTRATE 5 MG TAB PO PRN (08:45)
[2017-03-22] MEDS ORDERED: HYDROmorphone INJ 0.5 MG/0.5 ML SYR IV PRN (08:45)
--- NOTE | 2017-03-22 09:06 | DIAGNOSTIC IMAGING REPORT ---
R PELVIS/UNILATERAL HIP 1 VIEW CLINICAL HISTORY: IN PACU - A/P PELVIS and LATERAL HIP INCLUDING ALL OF IMPLANT COMPARISON: None. DISCUSSION: Total right hip arthroplasty in good position. Expected soft tissue postoperative changes. Pre-existing total left hip arthroplasty. IMPRESSION: Anatomic alignment status post total right hip arthroplasty The above report was generated using voice recognition software. It may contain grammatical, syntax or spelling errors. Electronically signed by: Tunde Araujo M.D. 03/22/2017 9:05 AM Dictated Date/Time: 03/22/2017 9:04 AM
--- NOTE | 2017-03-22 09:33 | Anesthesiology Progress Note ---
Anesthesia Post Op Note Date & Time Mar 22, 2017 at 09:33 Vital Signs Pain Intensity: 0 Vital Signs Past 12 Hours Date Time Temp Pulse Resp B/P (MAP) Pulse Ox O2 Delivery O2 Flow Rate FiO2 03/22/17 09:30 36.5 60 15 122/58 93 Nasal Cannula 4 03/22/17 09:15 36.5 60 18 114/57 99 Nasal Cannula 4 03/22/17 09:00 60 16 130/63 99 Nasal Cannula 4 03/22/17 08:50 60 16 125/58 99 Nasal Cannula 4 03/22/17 08:40 60 16 111/50 98 Nasal Cannula 4 03/22/17 08:30 36.4 60 16 127/52 98 Nasal Cannula 4 03/22/17 05:54 36.6 66 18 127/99 97 Room Air Notes Mental Status: alert / awake / arousable, participated in evaluation Pt Amnestic to Procedure: Yes Nausea / Vomiting: adequately controlled Pain: adequately controlled Airway Patency, RR, SpO2: stable & adequate BP & HR: stable & adequate Hydration State: stable & adequate Neuraxial Anesthesia: was administered, sensory block is resolving Anesthetic Complications: no major complications apparent
[2017-03-22] MEDS: D5W AND 1/2NSS + 20MEQ KCL 1,000 ML IV SCH ×2 (11:15→20:55)
[2017-03-22 11:56] LABS: CREATININE 0.65 mg/dl (0.60-1.20)
[2017-03-22] MEDS: PANTOprazole SOD 40 MG TAB PO SCH (12:41)
[2017-03-22] MEDS: FERROUS GLUCONATE 324 MG TAB PO SCH ×2 (12:41→18:44)
[2017-03-22] MEDS: TRAMADOL HCL 50 MG TAB PO PRN ×3 (12:45→23:39)
[2017-03-22] MEDS: KETOROLAC TROMETHAMINE 15 MG/ML VIAL IV. SCH ×2 (13:24→20:54)
[2017-03-22] MEDS: ACETAMINOPHEN 500 MG TAB PO SCH ×2 (13:25→20:59)
[2017-03-22] MEDS ORDERED: TRANEXAMIC ACID INJ 1,000 MG in SODIUM CHLORIDE 0.9% 100ML 100 ML IV ONE (14:30)
[2017-03-22] MEDS: CEFAZOLIN IV 1,000 MG in SYRINGE 0 ML IV SCH ×2 (14:32→23:38)
[2017-03-22] MEDS: CHECK SCOPOLAMINE PATCH PLACEMENT SCH ×2 (16:00→23:35)
--- NOTE | 2017-03-22 16:45 | Cardiology Consultation ---
Cardiology Consultation Date of Consultation: Mar 22, 2017. Requesting Physician: Tanner Reason for Consultation: PAF, valvular heart disease History of Present Illness Patient is a 68-year-old woman with a known history paroxysmal atrial fibrillation, bradycardia and valvular heart disease who underwent right total hip arthroplasty earlier today. Leading up to her surgery the patient was having some difficulty with ambulation. She had chronic pain in the right hip area and did suffer a fall related to some balance and stability issues. She was however, ambulatory and did not have other symptoms associated with exertion. She did not describe limiting dyspnea or dyspnea on exertion. She did not report orthopnea or paroxysmal nocturnal dyspnea. She generally sleeps on 2 pillows been doing this for some time. She has some very mild lower extremity edema which is not changed recently. She has not been aware of any palpitations. She has not had any dizziness recently. She has not any symptoms of chest discomfort. Currently she does have some right hip discomfort which is tolerable. She is not having chest discomfort. She is not aware of any palpitations. She denies any significant breathing trouble in his lying flat in bed. Past Medical/Surgical History Paroxysmal atrial fibrillation Mitral regurgitation moderate to severe Hypertension Hyperlipidemia Sick sinus syndrome status post pacemaker implantation Surgical history Appendectomy left and right total hip arthroplasty Tonsillectomy Dilation and curettage section Total abdominal hysterectomy and tubal ligation Breast augmentation Family History Hypertension Noncontributory given her advanced age Social History Smoking Status: Former Smoker History of Alcohol Use: Yes (7 DRINKS/WEEK) Review of Systems Patient did suffer a recent fall and had a fractured thumb. This appears to be well healed currently. She also describes some nasal congestion at nighttime with postnasal drainage. She has an associated cough productive of clear sputum. All Other Systems: Reviewed and Negative Allergies Coded Allergies: Sulfa Antibiotics (Verified Allergy, Unknown, RASH, 03/22/17) Medications Current Inpatient Medications Medications (Trade) Dose Ordered Sig/Anna Route Start Time Stop Time Status Last Admin Dose Admin Lactated Ringer's 1,000 ml @ 60 mls/hr [id number] IV 03/22/17 06:00 03/22/17 22:39 03/22/17 06:23 60 MLS/HR Cefazolin Sodium 10 ml @ 2.5 mls/min PREOP IV 03/22/17 06:00 03/22/17 18:00 03/22/17 06:58 2.5 MLS/MIN Acetaminophen (Tylenol Tab) 1,000 mg PREOP PO 03/22/17 06:00 03/22/17 18:00 03/22/17 06:22 1,000 MG Famotidine (Pepcid Tab) 20 mg PREOP PO 03/22/17 06:00 03/22/17 18:00 03/22/17 06:22 20 MG Gabapentin (Neurontin Cap) 300 mg PREOP PO 03/22/17 06:00 03/22/17 18:00 03/22/17 06:22 300 MG Metoclopramide HCl (Reglan Tab) 10 mg PREOP PO 03/22/17 06:00 03/22/17 18:00 03/22/17 06:22 10 MG Miscellaneous (Remove Transderm-Scop Patch) 1 ea Q72H N/A 03/25/17 06:00 03/25/17 06:01 Miscellaneous Information (Check Scopolamine Patch Placement) 1 ea QS N/A 03/22/17 16:00 03/25/17 05:59 Lactated Ringer's 1,000 ml @ 15 mls/hr Q24H IV 03/22/17 06:00 03/23/17 05:59 Potassium Chloride/Dextrose/ Sod Cl 1,000 ml @ 100 mls/hr Q10H IV 03/22/17 11:00 03/23/17 10:59 03/22/17 11:15 100 MLS/HR Ketorolac Tromethamine (Toradol Inj) 15 mg Q6H IV. 03/22/17 14:00 03/24/17 13:59 03/22/17 13:24 15 MG Acetaminophen (Tylenol Tab) 1,000 mg Q8H PO 03/22/17 14:00 04/21/17 13:59 03/22/17 13:25 1,000 MG Magnesium Hydroxide (Milk Of Magnesia Susp) 30 ml Q6H PRN PO 03/22/17 08:45 04/21/17 08:44 Bisacodyl (Dulcolax Supp) 10 mg DAILY PRN MO 03/22/17 08:45 04/21/17 08:44 Senna (Senokot Tab) 17.2 mg HS PO 03/22/17 21:00 04/21/17 20:59 Docusate Sodium (coLACE CAP) 100 mg BID PO 03/22/17 21:00 04/21/17 20:59 Al Hydrox/Mg Hydrox/Simethicone (Maalox Max Susp) 15 ml Q4H PRN PO 03/22/17 08:45 04/21/17 08:44 Zolpidem Tartrate (Ambien Tab) 5 mg HSZ PRN PO 03/22/17 08:45 04/21/17 08:44 Multivitamins (Multivitamin Tab) 1 tab QAM PO 03/23/17 09:00 04/22/17 08:59 Ondansetron HCl (Zofran Inj) 4 mg Q6H PRN IV 03/22/17 08:45 04/21/17 08:44 Metoclopramide HCl (Reglan Inj) 10 mg Q6H PRN IV 03/22/17 08:45 04/21/17 08:44 Ferrous Gluconate (Ferrous Gluconate Tab) 324 mg TIDM PO 03/22/17 12:30 04/21/17 12:29 03/22/17 12:41 324 MG Pantoprazole Sodium (Protonix Tab) 40 mg QAM PO 03/22/17 11:00 04/21/17 10:59 03/22/17 12:41 40 MG Tramadol HCl (Ultram Tab) 1 TABLET FOR PAIN RATING... Q4H PRN PO 03/22/17 08:45 04/21/17 08:44 03/22/17 12:45 100 MG Cefazolin Sodium 1000 mg/Syringe 5 ml @ 1.667 mls/ min Q8H IV 03/22/17 15:00 03/22/17 23:02 03/22/17 14:32 1.667 MLS/MIN Cholecalciferol (Vitamin D Tab) 800 inter.unit QPM PO 03/22/17 21:00 04/21/17 20:59 Escitalopram Oxalate (Lexapro Tab) 10 mg QAM PO 03/23/17 09:00 04/22/17 08:59 Fluticasone Propionate (Flonase Nasal [place]) 2 sprays BID NA 03/22/17 21:00 04/21/17 20:59 Losartan Potassium (coZAAR TAB) 25 mg QAM PO 03/23/17 09:00 04/22/17 08:59 Multivitamins/ Minerals (Multivitamin W/ Minerals Tab) 1 tab BID PO 03/22/17 21:00 04/21/17 20:59 Verapamil HCl (Calan-Sr Tab) 120 mg QPM PO 03/22/17 21:00 04/21/17 20:59 Salmeterol Xinafoate/ Fluticasone (Advair Diskus 250/50 Inh) 2 puff DAILY PRN INH 03/22/17 08:45 04/21/17 08:44 Miscellaneous Information (Order Awaiting Action) 1 ea QS N/A 03/22/17 16:00 04/21/17 15:59 Hydromorphone HCl (Dilaudid Inj) 0.5 mg Q1H PRN IV 03/22/17 08:45 04/05/17 08:44 Rivaroxaban (Xarelto Tab) 10 mg DAILY PO 03/23/17 09:00 04/22/17 08:59 Physical Exam Vital Signs Past 12 Hours Date Time Temp Pulse Resp B/P (MAP) Pulse Ox O2 Delivery O2 Flow Rate FiO2 03/22/17 14:50 36.5 66 16 172/83 (112) 96 Room Air 03/22/17 14:06 158/81 (106) 03/22/17 13:05 68 18 196/88 (124) 100 03/22/17 12:05 62 16 176/84 (114) 100 03/22/17 11:05 62 16 169/82 (111) 100 03/22/17 10:35 36.9 61 16 162/81 (108) 100 Nasal Cannula 3.0 03/22/17 10:05 36.3 62 16 158/72 (100) 100 Nasal Cannula 3.0 03/22/17 10:05 Nasal Cannula 3.0 03/22/17 10:05 100 Nasal Cannula 3.0 03/22/17 09:45 36.5 60 15 120/58 98 Nasal Cannula 4 03/22/17 09:30 36.5 60 15 122/58 93 Nasal Cannula 4 03/22/17 09:30 36.5 60 15 120/58 98 Nasal Cannula 4 03/22/17 09:15 36.5 60 18 114/57 99 Nasal Cannula 4 03/22/17 09:00 60 16 130/63 99 Nasal Cannula 4 03/22/17 08:50 60 16 125/58 99 Nasal Cannula 4 03/22/17 08:40 60 16 111/50 98 Nasal Cannula 4 03/22/17 08:30 36.4 60 16 127/52 98 Nasal Cannula 4 03/22/17 05:54 36.6 66 18 127/99 97 Room Air She is alert and oriented x3. Mood affect appear normal. She answered all questions appropriately. HEENT: Sclerae are anicteric. Pupils are equal and reactive to light and accommodation. Extraocular movements were intact. Neuro: Cranial nerves intact Neck: Examination of the submandibular region did not reveal any significant lymphadenopathy. Carotids are palpable bilaterally and free of bruits on auscultation. There was no evidence of jugular venous distention. The thyroid was not enlarged. Lungs: Lungs are clear to auscultation bilaterally. There are no rales wheezes or rhonchi. She has normal respiratory effort without use of accessory muscles. There is normal pulmonary excursion. Chest: Well-healed pacemaker implant site in left upper pectoral area. Breast implants noted. Cardiac: The rhythm was regular. S1 and S2 were normal. Very soft holosystolic murmur. The PMI was not markedly displaced on palpation. Abdomen: The abdomen was soft and nontender. Extremities: Patient has bilateral radial pulses that are equal in intensity. There is no evidence cyanosis or clubbing. There was no evidence of significant peripheral edema bilaterally although sequential compression devices are in place. She has a cooling pad placed on the right hip Skin: There are no rashes noted on examination today. Data Laboratory Results: Last 24 Hours Test 03/22/17 11:15 Creatinine 0.65 mg/dl Est Creatinine Clear Calc Drug Dose 64.2 ml/min Estimated GFR () 98.6 Estimated GFR (Non- 85.0 Imaging: Chest x-ray was obtained earlier which did not reveal any acute cardiopulmonary process EKG: EKG obtained on March 01 revealed atrial paced rhythm Last device interrogation performed in mid February revealed primarily in atrial paced rhythm without significant ventricular pacing. No episodes of atrial fibrillation or mode switches. Echocardiogram performed 01 February 2016: Preserved LV systolic function. Stage I diastolic dysfunction. Mild LVH. Moderate to severe mitral regurgitation. Normal estimated pulmonary pressures. Assessment & Plan 1. Atrial fibrillation: Patient has done quite well recently has not had any documented episodes of atrial fibrillation sometime. Pulse is regular today. She has been maintained on Xarelto as an outpatient for prophylaxis against thromboembolic events. It would be reasonable to reinitiate her Xarelto when felt to be safe by her surgeon. 2. Sick sinus syndrome: Patient normally functioning pacemaker with primarily atrial paced rhythm. She is not dependent on the pacemaker. Currently in a regular rhythm. 3. Hypertension: Patient's blood pressures been slightly elevated since her surgery. This may be related to discomfort. She is scheduled for her verapamil this evening and could be given an extra dose of losartan if her pressure continues to be high. Hopefully better control of her pain will result in some improvement in her blood pressure as well. 4. Valvular heart disease: Patient has moderate to severe mitral regurgitation. Very soft murmur on examination. No evidence of pulmonary vascular congestion or decompensation. She is not appear to have had any significant clinical problems related to her regurgitation to date. I would avoid over hydration however and consider stopping her IV fluids which she is eating and drinking normally
--- NOTE | 2017-03-22 17:41 | PROGRESS NOTE ---
DATE: 03/22/2017 SUBJECTIVE: A 76-year-old white female postop from a right total hip replacement. She is doing well. She was painful earlier but doing much better now with the meds. No chest pain or shortness of breath. Not feeling dizzy or lightheaded. OBJECTIVE: VITAL SIGNS: Temperature 36.5. Vital signs stable. GENERAL: A healthy, pleasant elderly female. She is lying in bed, looks quite comfortable. She is talking to her . LUNGS: Clear to auscultation. HEART: Has regular rate and rhythm. ABDOMEN: Soft, nontender, nondistended. EXTREMITIES: Grossly neurovascularly intact except as follows: Examination of the right hip and leg reveals the leg to be well aligned. Hip is located. Dressing is clean, dry and intact. She can dorsiflex and plantarflex her foot appropriately. She is neurologically intact. X-RAYS: X-rays of the right hip from recovery room were reviewed. It shows a right uncemented total hip arthroplasty. Components looked to be in good position. No signs of problems. ASSESSMENT: A 76-year-old white female postop from a right total hip replacement, doing well. She has been a little hypertensive but better after pain medicines. Her hips is located. She is neurologically intact. PLAN: 1. DVT prophylaxis including thigh-high TEDs, SCDs. We will start her on Xarelto at a prophylactic dose 24 hours postoperatively and then increase it postop day #3 to a therapeutic dose. 2. PT/OT. Weight bear as tolerated. Right total hip protocol. 3. Pain control, doing reasonably well with current pain regimen. 4. IV antibiotics x24 hours. 5. Hypertension. We will consult cardiology to help follow her heart. We will let them manage her blood pressure. 6. Disposition: Plan to discharge to home with some home health and her 's assistance once medically stable.
--- NOTE | 2017-03-22 20:31 | OPERATIVE REPORT ---
DATE OF OPERATION: 03/22/2017 SURGEON: Juan Hart MD. FUEL QUALITY TECH: TUNDE Estevez. 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 POSTOPERATIVE DIAGNOSIS: Same. PROCEDURE PERFORMED: Right uncemented total hip arthroplasty. COMPLICATIONS: None. ESTIMATED BLOOD LOSS: 200 mL. FLUID REPLACEMENT: 1200 mL crystalloid fluid replacement. ANESTHESIA: Spinal. DRAINS: None. SPECIMENS: Right femoral head sent for pathology. OPERATIVE INDICATIONS: The patient is a 76-year-old female now little over 2 years out from a left hip replacement for avascular necrosis. She has had a known history of avascular necrosis of her right hip as well. She has become more debilitated by this and actually had several falls due to her hip pain and giving out with the pain. X-rays show progressive collapse of her femoral head. She elects to do a total hip arthroplasty. OPERATIVE FINDINGS: Operative findings revealed advanced right hip avascular necrosis with collapse and subchondral fracture of the femoral head. She had a pretty significant joint effusion as well. OPERATIVE IMPLANTS: Operative implants consisted of: 1. Biomet G7 size 50 mm acetabular shell. 2. A 6.5 cancellous acetabular screws, 1 of 35 mm in length and 1 of 25 mm in length. 3. An apex hole eliminator. 4. Highly cross-linked polyethylene liner with 50 mm outer diameter and 32 mm inner diameter. 5. DePuy size 12 small stature AML femoral stem. 6. A +5/32 mm metal articular ball. OPERATIVE PROCEDURE: The patient taken to the operating room, identified and placed on the operating table in supine position. All contact areas were appropriately padded. IV antibiotics provided by anesthesia team. A spinal anesthetic had been implemented in the holding area. A Salvador catheter was placed in sterile fashion. The patient was then placed in the left lateral decubitus position. An axillary roll was placed. [facility] was used for positioning. The right hip and leg were then prepped and draped in the usual sterile fashion. A posterolateral approach to the right hip was then performed through a curvilinear incision centered over the greater trochanter. Sharp dissection was carried out through the subcutaneous tissues down to the level of the IT band and gluteal fascia. The IT band and gluteal fascia were incised longitudinally in line with the skin incision. The underlying greater trochanteric bursa was excised. The piriformis and external rotators were tagged and taken off the posterior aspect of the femur. Great care was taken throughout the procedure to protect the sciatic nerve at all times. A posterior capsulotomy was then performed leaving a large flap for later repair. Hip was internally rotated and dislocated. Femoral neck osteotomy cut was made with a final cut 9 mm above the lesser trochanter. Femoral head was removed and sent for pathology. The femur was retracted anteriorly. Attention was then drawn to the acetabulum. The acetabular labrum was excised. I did curette out pulvinar fat and I also curetted some of the cartilage. Sequential reaming of the acetabulum was then performed beginning with a size 43 and progressing up to 49. A 50 mm Biomet G7 acetabular shell was placed. I did ream with a 50 reamer as I could not get the initial cup in and I did not want to fracture her osteoporotic bone. A size 50 cup was placed in about 40 degrees of lateral opening and 20 degrees of anteversion. It was fixed with two 6.5 cancellous acetabular screws. A trial liner was placed. Attention was then drawn to the femur. The proximal femur was entered with cookie cutter followed by canal finder and lateralizing reamer. Sequential reaming of the femur was then performed beginning with a size 9 and progressing up to 11.5. We got good chatter at 11.5. I then broached beginning with a size 10.5 broach and progressing to a 12. We took quite a bit of time doing this as it was fairly tight and I did not want to fracture osteoporotic bone. I could not quite get the 12 implant down to the calcar cut but it fit nicely with good proximal fill. We then trialed the hip and the +5 articular ball provided full stability and full extension and external rotation and flexion to 90 degrees, internal rotation to 60+ degrees. I elected to use these implants. All trial implants were removed. An apex hole eliminator was placed. A highly cross-linked polyethylene liner was placed. A size 12 small stature AML femoral stem was then impacted in position. A +5/32 mm articular ball was placed. Hip was located and once again found to be stable. Attention was then drawn toward closing. The wound was irrigated with copious amounts of pulsatile lavage solution. I did inject locally with 60 mL of 0.5% Marcaine with epinephrine. The posterior capsule and external rotators were repaired through drill holes in the posterior trochanter with #2 Ti-Cron suture. The IT band and gluteal fascia were then closed with #1 PDS suture in running fashion. The subcutaneous tissues were then closed with 2 layers with the deep layer #1 Vicryl suture and the subcutaneous tissues with 2-0 Dexon suture in a buried interrupted fashion. Skin was closed skin krunal. Leg was then cleaned and dried and a sterile dressing of Xeroform, 4 x 4, sterile ABD pad and foam tape was applied. The patient was then transferred to the recovery room in stable condition. The patient tolerated the procedure with no complications. All needle and sponge counts were correct at the end of the operation. I attest to the content of the Intraoperative Record and any orders documented therein. Any exception s are noted below.
[2017-03-22] MEDS: FLUTICASONE PROPIONATE NA SPR 16 GM BTL SCH (20:55)
[2017-03-22] MEDS: SENNA 8.6 MG TAB PO SCH (20:56)
[2017-03-22] MEDS: DOCUSATE SODIUM 100 MG CAP PO SCH (20:56)
[2017-03-22] MEDS: CEROVITE ADV FORMULA TAB PO SCH (20:57)
[2017-03-22] MEDS: VERAPAMIL HCL 120 MG TABCR PO SCH (20:57)
[2017-03-22] MEDS: CHOLECALCIFEROL 400 INTER.UNIT TAB PO SCH (20:58)
[2017-03-22] MEDS ORDERED: NON-FORMULARY MEDICATION (Omeprazole (Prilosec) 40 MG) PO SCH (21:00)
[2017-03-23] MEDS: KETOROLAC TROMETHAMINE 15 MG/ML VIAL IV. SCH ×4 (02:15→19:59)
[2017-03-23 02:23] VITALS: BP 154/75; PULSE 70; TEMP 36.7; O2SAT 96
[2017-03-23] MEDS: ACETAMINOPHEN 500 MG TAB PO SCH ×3 (05:37→21:39)
[2017-03-23] MEDS: D5W AND 1/2NSS + 20MEQ KCL 1,000 ML IV SCH (06:29)
[2017-03-23 07:20] VITALS: BP 124/68; PULSE 66; TEMP 36.7; O2SAT 95
[2017-03-23 07:32] LABS: HEMATOCRIT 30.8 % (37-47); MEAN CELL VOLUME 89.8 fL (80-100); MEAN CORPUSCULAR HGB CONC 33.4 g/dl (32-36); MEAN PLATELET VOLUME 8.4 fL (7.4-10.4); PLATELET COUNT 192 K/uL (130-400); RED BLOOD COUNT 3.43 M/uL (4.2-5.4); WHITE BLOOD COUNT 7.73 K/uL (4.8-10.8)
[2017-03-23] MEDS ORDERED: FRRG PO (07:55)
[2017-03-23] MEDS ORDERED: ULT50X PO (07:55)
[2017-03-23] MEDS ORDERED: ACET-24 PO (07:55)
[2017-03-23] MEDS: CHECK SCOPOLAMINE PATCH PLACEMENT SCH ×2 (08:00→15:54)
--- NOTE | 2017-03-23 08:01 | PROGRESS NOTE ---
DATE: 03/23/2017 SUBJECTIVE: A 76-year-old white female postop day 1 from right total hip replacement. She is doing better today. Pain is controlled. She got up and walked to the bathroom pretty well. Pain seems to be controlled. No chest pain or shortness of breath. OBJECTIVE: VITAL SIGNS: Temperature 36.7. Vital signs stable. Blood pressure improved at 124/68. GENERAL: Reveals a pleasant elderly female. She is lying in bed, looks comfortable. EXTREMITIES: Examination of the left leg reveals the dressing to be clean, dry and intact. Thigh is soft and supple. Hip is located. She is neurologically intact. LABORATORY DATA: Hemoglobin 10.3. Hematocrit 30.8. Electrolytes are pending. ASSESSMENT: A 76-year-old female with history of atrial fibrillation postop day 1 from a right total hip replacement, doing well. Blood pressure is improved. Pain is improved. PLAN: 1. DVT prophylaxis including thigh high TEDs, SCDs, and Xarelto. We will start her on prophylactic dose today and likely increase her to a therapeutic dose, postop day #3. 2. PT, OT. Weight bear as tolerated. Right total hip protocol. 3. Pain control, doing pretty well with current pain regimen. 4. Disposition: Plan to discharge to home with some home health and her 's assistance once medically stable.
[2017-03-23 08:08] LABS: BUN/CREATININE RATIO 16.7 (10-20); CALCIUM 7.9 mg/dl (8.5-10.1); CREATININE 0.63 mg/dl (0.60-1.20); POTASSIUM 4.1 mmol/L (3.5-5.1)
[2017-03-23 08:12] LABS: BASO % 0.1 %; BASO ABS # 0.01 K/uL (0-0.2); COMPLETE YES; EOS % 1.4 %; IG% 0.4 %; LYMPH % 7.8 %; MONO % 10.9 %; NEUT % 79.4 %
[2017-03-23] MEDS: DOCUSATE SODIUM 100 MG CAP PO SCH ×2 (08:32→21:00)
[2017-03-23] MEDS: FLUTICASONE PROPIONATE NA SPR 16 GM BTL SCH ×2 (08:32→20:56)
[2017-03-23] MEDS: FERROUS GLUCONATE 324 MG TAB PO SCH ×3 (08:32→17:49)
[2017-03-23] MEDS: MULTIVITAMIN TAB PO SCH (08:33)
[2017-03-23] MEDS: CEROVITE ADV FORMULA TAB PO SCH ×2 (08:33→21:00)
[2017-03-23] MEDS: LOSARTAN POTASSIUM 25 MG TAB PO SCH (08:33)
[2017-03-23] MEDS: PANTOprazole SOD 40 MG TAB PO SCH (08:33)
[2017-03-23] MEDS: ESCITALOPRAM OXALATE 10 MG TAB PO SCH (08:33)
[2017-03-23] MEDS: RIVAROXABAN 10 MG TAB PO SCH (08:34)
[2017-03-23] MEDS: TRAMADOL HCL 50 MG TAB PO PRN ×2 (08:35→20:59)
--- NOTE | 2017-03-23 09:15 | Cardiology Follow-Up ---
Cardiology Follow-Up Date of Service Mar 23, 2017. Cardiology Follow-Up SUBJECTIVE: 68-year-old woman with history of paroxysmal atrial fibrillation, bradycardia (status post pacemaker), and moderate to severe mitral regurgitation who is status post right total hip arthroplasty yesterday. She is doing well, noting no chest pain, dyspnea, palpitations, or other complaints. PHYSICAL EXAMINATION: No distress. Vitals: Afebrile. BP 124/68, pulse 66 and regular, respirations 18 and unlabored. Skin: No unusual lesions or ecchymosis. HEENT: Unremarkable. Neck: Jugular venous pulse at the clavicle at 90, no carotid bruits. Lungs: Clear and equal breath sounds bilaterally. No wheezing or crackles. Cardiac: Regular rhythm with normal S1 and S 2. 2/6 apical holosystolic murmur radiating to the axilla. Abdomen: Benign. Extremities: Nontender without edema. Intact peripheral pulses. Neurologic: Normal affect, nonfocal DATA: Hemoglobin 10.3 with normal white count and platelet count. Sodium 134 with normal electrolytes, BUN 10, creatinine 0.63, glucose 111. Calcium 7.9. Rhythm is atrial electronic pacing. IMPRESSION: 1. Status post right hip arthroplasty, postoperative day 1. 2. History of paroxysmal atrial fibrillation, paced rhythm currently. 3. History of bradycardia/pacemaker, rhythm appropriate. 4. Moderate to severe mitral regurgitation, asymptomatic. DISCUSSION: Patient is doing well status post right hip arthroplasty. No active cardiac problems, her blood pressure is improved today. Pacemaker function appropriate. Agree with restarting her Xarelto for chronic anticoagulation to prevent thromboembolic episode from her paroxysmal atrial fibrillation.
[2017-03-23 11:11] VITALS: BP 113/66; PULSE 64; TEMP 36.7; O2SAT 97
[2017-03-23 15:07] VITALS: BP 138/72; PULSE 79; TEMP 36.5; O2SAT 93
--- NOTE | 2017-03-23 17:00 | Discharge Instructions ---
Discharge Instructions Date of Service Mar 23, 2017. Admission Reason for Admission: Right Hip Degenerative Joint Disease Discharge Discharge Diagnosis / Problem: Right Hip Replacment Discharge Goals Goal(s): Decrease discomfort, Improve function, Increase independence, Improve disease control, Therapeutic intervention Activity Recommendations Activity Limitations: per Instructions/Follow-up section (Total Hip Precautions ) Weightbearing Status: Right weightbearing . Instructions / Follow-Up Instructions / Follow-Up ACTIVITY RECOMMENDATIONS: Physical Therapy: * Aggressive physical therapy is not usually needed. You will learn to take care of yourself safely and walk. * Follow the "Hip Precautions Instructions." * In some cases, the executive secretary social welfare at the hospital will arrange to have a therapist come to your house for the first couple of weeks to help you learn these skills. * You need to practice on your own or with the help of a family member as needed. * When you learn these skills, most of the therapy can be done on your own. Home Exercise: * You were shown a series of exercises in the hospital. Do these exercises three to four times each day including the exercises you were shown in physical therapy. Walking: * Get up and walk several times each day. For the first four weeks, try not to stand or walk for more than one hour at a time. If you do stand or walk for more than one hour, you will not hurt anything, but your leg will likely swell. * As you feel comfortable, you may change from the walker or crutches to a cane and then to independent walking. MEDICATIONS: New Medicine: * You will likely be taking one or more of these medicines: 1. Tramadol - Take, as directed, when you need it, every four to six hours to control your pain. 2. Iron Sulfate - Take two times each day for the month after surgery to help you replace the blood lost during surgery. 3. Xarelto - Thins your blood to lessen the chance of forming a blood clot. * The most common side effects of pain medicine and iron are nausea and constipation. If nausea or constipation is too much of a problem or if you have any questions about your new medicines or doses, call [facility] at [phone]. We will try to help you manage these issues. VERY IMPORTANT TO READ AND REVIEW" Pain: * The immediate post-operative period after hip replacement surgery is often quite painful. * You are given a prescription for pain medicine. You should take it, as directed, when you need it, especially before physical therapy and before going to bed. Pain that interferes with sleep is very common and can last several months. * You will likely need pain medicine for the first two to four weeks. It will not stop all of the pain. The pain will lessen and as you feel better, you may change to milder pain medicine such as Tylenol. * The most common side effects of pain medicine are nausea and constipation, so don't take more than you need. SPECIAL CARE INSTRUCTIONS: TEDs/Elastic Stockings: * The white elastic stockings help limit swelling and prevent blood clots from forming in your legs. The more you wear them, the more they work. * Wear them for six weeks. Prevention of Infection: * Take antibiotics one hour before any dental cleaning, dental work, urological procedure, gastrointestinal procedure or any invasive surgery in order to prevent your new joint from getting infected. * You may get the antibiotics from the doctor performing the procedure or you may call our office at before and we will call in a prescription to the pharmacy of your choice. Things to Watch For: * Drainage from the incision site that occurs more than one week after your surgery. * Severely increased leg pain or swelling. * Increased redness at the incision site. * Fever above 102 degrees Fahrenheit. * Unusual chest pain or shortness of breath. * Unusual pain or burning with urination. [facility] with any of the above problems or if you have any questions about your medicines or recovery. FOLLOW UP VISIT: Make an appointment to see your doctor for approximately two weeks after surgery for a progress check and staple removal by calling the office at . Current Hospital Diet Patient's current hospital diet: Regular Diet Discharge Diet Recommended Diet: Regular Diet Procedures Procedures Performed: Right Total Hip Arthroplasty--Uncemented Pending Studies Studies pending at discharge: no Laboratory Results Lipid Panel Test 02/15/17 08:25 Range/Units Triglycerides Level 139 0-150 mg/dl Cholesterol Level 211 H 0-200 mg/dl HDL Cholesterol 66 mg/dl Cholesterol/HDL Ratio 3.2 LDL Cholesterol, Calculated 117 mg/dl Medical Emergencies . Who to Call and When: Medical Emergencies: If at any time you feel your situation is an emergency, please call 911 immediately. . Non-Emergent Contact Non-Emergency issues call your: Surgeon . "Provider Documentation" section prepared by Juan Hart. . VTE Core Measure Inpt VTE Proph given/why not?: Other Anticoagulation, T.E.D. Stockings, SCD's
[2017-03-23 20:57] VITALS: BP 143/78; PULSE 74
[2017-03-23] MEDS: SENNA 8.6 MG TAB PO SCH (21:00)
[2017-03-23] MEDS: VERAPAMIL HCL 120 MG TABCR PO SCH (21:00)
[2017-03-23] MEDS: CHOLECALCIFEROL 400 INTER.UNIT TAB PO SCH (21:01)
[2017-03-23 23:52] VITALS: BP 148/69; PULSE 71; TEMP 36.8; O2SAT 91
[2017-03-24] MEDS: CHECK SCOPOLAMINE PATCH PLACEMENT SCH ×2 (00:06→07:12)
[2017-03-24] MEDS: KETOROLAC TROMETHAMINE 15 MG/ML VIAL IV. SCH ×2 (01:38→07:12)
[2017-03-24] MEDS: ACETAMINOPHEN 500 MG TAB PO SCH (05:37)
[2017-03-24 06:33] VITALS: BP 133/66; PULSE 76; TEMP 36.4; O2SAT 94
[2017-03-24 06:53] LABS: CREATININE 0.66 mg/dl (0.60-1.20)
[2017-03-24] MEDS: TRAMADOL HCL 50 MG TAB PO PRN (07:16)
[2017-03-24] MEDS: FERROUS GLUCONATE 324 MG TAB PO SCH (07:16)
[2017-03-24] MEDS: FLUTICASONE PROPIONATE NA SPR 16 GM BTL SCH (07:16)
[2017-03-24] MEDS: LOSARTAN POTASSIUM 25 MG TAB PO SCH (07:17)
[2017-03-24] MEDS: DOCUSATE SODIUM 100 MG CAP PO SCH (07:17)
[2017-03-24] MEDS: MULTIVITAMIN TAB PO SCH (07:18)
[2017-03-24] MEDS: CEROVITE ADV FORMULA TAB PO SCH (07:18)
[2017-03-24] MEDS: ESCITALOPRAM OXALATE 10 MG TAB PO SCH (07:18)
[2017-03-24] MEDS: PANTOprazole SOD 40 MG TAB PO SCH (07:19)
[2017-03-24] MEDS: RIVAROXABAN 10 MG TAB PO SCH (07:19)
--- NOTE | 2017-03-24 08:34 | PROGRESS NOTE ---
DATE: 03/24/2017 SUBJECTIVE: A 76-year-old white female postop day 2 from right total hip replacement. She is doing well. She had some intermittent bouts of some mild confusion, but in general, much improved. Pain is controlled. No chest pain or shortness of breath. Not feeling dizzy or lightheaded. OBJECTIVE: VITAL SIGNS: Temperature 36.4. Vital signs stable. PHYSICAL EXAMINATION: GENERAL: Reveals a pleasant elderly female. She is lying in bed and was drinking some coffee this morning. She is awake, alert and oriented. EXTREMITIES: Examination of the right hip reveals the dressing to be clean, dry and intact. Leg lengths are equal. Hip is located. She is neurologically intact. ASSESSMENT: A 76-year-old white female postop day 2 from a right total hip replacement, doing pretty well. Pain is controlled. PLAN: 1. DVT prophylaxis including thigh-high TEDs, SCDs, and Xarelto. We will continue the prophylactic dose of Xarelto today and then switch to a therapeutic tomorrow. 2. PT/OT. Weightbearing as tolerated. Right total hip protocol. 3. Pain control. Doing well with current pain regimen. 4. Disposition: Plan to discharge to home with some home health later today.
[2017-03-24 09:35] VITALS: BP 133/66; PULSE 76; TEMP 36.4; O2SAT 94
== END 2017-03-24 10:16 | disposition home health service (06) | DRG 470 ==
LOC: C.ACU 05:16 → C.3E 06:40
PROVIDERS: ADMIT Orthopaedic Surgery Sports Medicine; ATTEND Orthopaedic Surgery Sports Medicine
PROC: 0SR902A Replacement of Right Hip Joint with Metal on Polyethylene Synthetic Substitute, Uncemented, Open Approach (ICD-10-PCS; principal; 2017-03-22 08:50)
DX: M87.851 Other osteonecrosis, right femur (principal); M16.7 Other unilateral secondary osteoarthritis of hip; R29.6 Repeated falls; I48.0 Paroxysmal atrial fibrillation; I10 Essential (primary) hypertension; F32.9 Major depressive disorder, single episode, unspecified; K21.9 Gastro-esophageal reflux disease without esophagitis; I34.0 Nonrheumatic mitral (valve) insufficiency; Z96.642 Presence of left artificial hip joint; Z95.0 Presence of cardiac pacemaker; Z87.81 Personal history of (healed) traumatic fracture; Z87.891 Personal history of nicotine dependence; Z79.01 Long term (current) use of anticoagulants; Z79.899 Other long term (current) drug therapy; Z88.2 Allergy status to sulfonamides

== ENCOUNTER 2017-04-03 14:39 | Emergency (ER) | payer OTHER ==
[~2017-04-03] VITALS: Ht 165.1 cm; Wt 66.8 kg
[~2017-04-03 14:39] MED LIST changes: -ACET-1256 PO; +ACET-24 PO; +FRRG PO; +ULT50X PO
[2017-04-03 14:43] VITALS: TEMP 36.5; Ht 165.1 cm; Wt 66.8 kg
[2017-04-03] MEDS ORDERED: HYDROmorphone INJ 1 MG/ML SYR IV STA (14:56)
--- NOTE | 2017-04-03 14:59 | EMERGENCY ROOM VISIT NOTE ---
History First contact with patient: 14:45 Chief Complaint: HIP PAIN Stated Complaint: HIP PAIN History of Present Illness The patient is a 76 year old female who presents to the Emergency Room with complaints of right hip pain. She had an elective total knee arthroplasty performed by Dr Hart for right hip avascular necrosis on 22 March 2017. Since the surgery she has been having progressively worsening right hip pain but this has been much worse over the past 2 days. She has had chills intermittently over the past 2 days but no objective fever. She has also noticed increase swelling on the upper part of her hip. She has not noticed any drainage from her wound. She denies any dizziness, chest pain or shortness of breath. She takes Xarelto for paroxysmal atrial fibrillation. Review of Systems All othet systems were reviewed and otherwise negative other than HPI Past Medical/Surgical History Medical Problems: (1) Arthritis (2) Dyslipidemia (3) HTN (hypertension) (4) Moderate to severe mitral regurgitation (5) Osteopenia (6) Paroxysmal atrial fibrillation (7) Right Hip AVN Family History Hypertension Social History Smoking Status: Never Smoker Marital Status: Housing Status: lives with significant other Occupation Status: retired Current/Historical Medications Scheduled Acetaminophen (Tylenol), 1,000 MG PO Q8 Cholecalciferol (Vitamin D3), 5,000 UNITS PO QPM Escitalopram (Lexapro), 10 MG PO QAM Ferrous Gluconate (Ferrous Gluconate), 324 MG PO BIDM Fluticasone Propionate (Nasal) (Flonase Allergy Relief), 2 SPRAYS INTNAS BID Fluticasone-Salmeterol 115/21 Mcg (Advair Hfa 115/21 Mcg), 2 PUFF INH PRN Fdeicjhxaev-Upwgcwdelwf-Fqc C- (Glucosamine Chondroitin), 1 TAB PO QPM Guaifenesin/Codeine (Robitussin-Ac Syrup), 5 ML PO PRN UD Ketoconazole (Ketoconazole), 1 APPLN TOP DAILY Losartan Potassium (Losartan Potassium), 25 MG PO QAM Ocuvite Preservision (Ocuvite Preservision), 1 TAB PO BID Omeprazole (Prilosec), 40 MG PO QPM Rivaroxaban (Xarelto), 20 MG PO QAM Verapamil Hcl (Calan Sr Ext Rel), 120 MG PO QPM Scheduled PRN Diphenhydramine Hcl (Sleep) (Sleep Aid), 25 MG PO HS PRN for RN Tramadol HCl (Tramadol HCl), 50-100 MG PO Q6H PRN for Pain Physical Exam Vital Signs Date Time Temp Pulse Resp B/P (MAP) Pulse Ox O2 Delivery O2 Flow Rate FiO2 04/03/17 18:40 85 18 141/62 97 Room Air 04/03/17 18:06 81 20 141/62 95 Room Air 04/03/17 16:32 102 20 160/66 93 Room Air 04/03/17 15:04 69 04/03/17 14:43 36.5 82 18 167/80 96 Room Air Physical Exam General Appearance: WD/WN, + moderate distress (from right hip pain) Eyes: normal inspection (pupils equal) ENT: + pertinent finding (dry mucus membranes) Neck: supple, trachea midline Respiratory/Chest: lungs clear, normal breath sounds, no respiratory distress, no accessory muscle use Cardiovascular: regular rate, rhythm, no murmur, normal peripheral pulses ( Doraslis pedis easily palpated distal to right hip, PT not palpated) Abdomen / GI: normal bowel sounds, non tender, soft Extremities: no calf tenderness, normal capillary refill, + swelling (right calf pitting edema 2+ to mid thigh > left (trace at ankle)), + pertinent finding (shortened internally rotated right leg, pain over right hip anteriorly, superiorly and laterally, mild erythema surrounding middle part of surgical incision without warmth or significant pain, no fluctuant mass noted, no pus) Neurologic/Psych: no motor/sensory deficits (motor and sensation intact distal to right hip) Medical Decision & Procedures ER Provider Diagnostic Interpretation: R PELVIS/UNILATERAL HIP 2-3VIEWS HISTORY: 76 years-old Female right hip pain, s/p right THR acute right hip pain with prior right total hip arthroplasty 12 days prior COMPARISON: Pelvis and right hip radiographs 03/22/2017 TECHNIQUE: AP view of the pelvis with 3 views of the right hip FINDINGS: Bones appear moderately demineralized. No pelvic ring fracture. Bilateral hip arthroplasties. Persistent moderate soft tissue swelling is noted about the right hip along with lateral skin krunal. Previously noted deep tissue air has predominantly resolved. Alignment of the right hip arthroplasty appears satisfactory. No retained foreign body identified. Surgical clip projects over the central pelvis and left lower abdomen. Moderate stool volume. IMPRESSION: 1. Bilateral hip arthroplasties with satisfactory alignment. No acute fracture or dislocation. 2. Moderate soft tissue swelling about the right hip. The above report was generated using voice recognition software. It may contain grammatical, syntax or spelling errors. Electronically signed by: Cj Acuña M.D. 04/03/2017 3:58 PM Dictated Date/Time: 04/03/2017 3:56 PM R VENOUS DOPP LOWER EXT UNILAT HISTORY: 76 years-old Female right sided leg swelling acute swelling of the right lower extremity. Recent right hip arthroplasty. COMPARISON: None available TECHNIQUE: Multiple real-time sonographic images of the right lower extremity deep venous structures were obtained assessing grayscale appearance and color flow FINDINGS: There is normal flow, compressibility, phasicity, and augmentation of the right lower extremity deep venous structures. Limited visualization of the calf veins. Incision of the right lateral hip is noted with a linear complex fluid collection deep to the incision measuring 29.4 x 3.1 x 1.9 cm. Mild subcutaneous edema. IMPRESSION: 1. No sonographic evidence of deep venous thrombosis. 2. Linear complex fluid collection deep to the right hip incision measures up to 29.4 x 3.1 x 1.9 cm. Considerations would include postoperative seroma, hematoma or abscess. The above report was generated using voice recognition software. It may contain grammatical, syntax or spelling errors. Electronically signed by: Cj Acuña M.D. 04/03/2017 5:51 PM Dictated Date/Time: 04/03/2017 5:48 PM Laboratory Results 04/03/17 14:43 Red Blood Count 2.94, Mean Corpuscular Volume 90.5, Mean Corpuscular Hemoglobin 31.3, Mean Corpuscular Hemoglobin Concent 34.6, Mean Platelet Volume 7.6, Neutrophils (%) (Auto) 73.6, Lymphocytes (%) (Auto) 12.4, Monocytes (%) (Auto) 10.9, Eosinophils (%) (Auto) 2.1, Basophils (%) (Auto) 0.1, Neutrophils # (Auto ) 6.31, Lymphocytes # (Auto) 1.06, Monocytes # (Auto) 0.93, Eosinophils # (Auto ) 0.18, Basophils # (Auto) 0.01 04/03/17 14:43 Test 04/03/17 14:43 White Blood Count 8.57 K/uL (4.8-10.8) Red Blood Count 2.94 M/uL (4.2-5.4) Hemoglobin 9.2 g/dL (12.0-16.0) Hematocrit 26.6 % (37-47) Mean Corpuscular Volume 90.5 fL (80-100) Mean Corpuscular Hemoglobin 31.3 pg (25-34) Mean Corpuscular Hemoglobin Concent 34.6 g/dl (32-36) Platelet Count 433 K/uL (130-400) Mean Platelet Volume 7.6 fL (7.4-10.4) Neutrophils (%) (Auto) 73.6 % Lymphocytes (%) (Auto) 12.4 % Monocytes (%) (Auto) 10.9 % Eosinophils (%) (Auto) 2.1 % Basophils (%) (Auto) 0.1 % Neutrophils # (Auto) 6.31 K/uL (1.4-6.5) Lymphocytes # (Auto) 1.06 K/uL (1.2-3.4) Monocytes # (Auto) 0.93 K/uL (0.11-0.59) Eosinophils # (Auto) 0.18 K/uL (0-0.5) Basophils # (Auto) 0.01 K/uL (0-0.2) RDW Standard Deviation 46.5 fL (36.4-46.3) RDW Coefficient of Variation 14.7 % (11.5-14.5) Immature Granulocyte % (Auto) 0.9 % Immature Granulocyte # (Auto) 0.08 K/uL (0.00-0.02) Prothrombin Time 12.3 SECONDS (9.0-12.0) Prothromb Time International Ratio 1.2 (0.9-1.1) Activated Partial Thromboplast Time 35.5 SECONDS (21.0-31.0) Partial Thromboplastin Ratio 1.4 Anion Gap 7.0 mmol/L (3-11) Est Creatinine Clear Calc Drug Dose 68.4 ml/min Estimated GFR () 100.6 Estimated GFR (Non- 86.8 BUN/Creatinine Ratio 14.9 (10-20) Calcium Level 8.3 mg/dl (8.5-10.1) Medications Administered Medications (Trade) Dose Ordered Sig/Anna Route Start Time Stop Time Status Last Admin Dose Admin Hydromorphone HCl (Dilaudid Inj) 1 mg NOW STAT IV 04/03/17 14:56 04/03/17 14:57 DC 04/03/17 15:01 1 MG Acetaminophen/ Hydrocodone Bitart ([place] 5/325mg Home Pack) 1 homepack UD ONCE PO 04/03/17 18:30 04/03/17 18:31 DC 04/03/17 18:44 1 HOMEPACK Ondansetron HCl (ZOFRAN ODT 4MG Home Pack) 1 homepack UD ONCE PO 04/03/17 18:30 04/03/17 18:31 DC 04/03/17 18:44 1 HOMEPACK ED Course Complete history and physical was taken by myself Discussed case with Dr Rivas who separately performed history and examination Discussed case with Dr New who recommended US doppler Discussed case with Dr Hart who agreed with plan and will see patient in the morning Patient was able to ambulate with walker before discharge Medical Decision Prior records reviewed and summarized above. Triage Nursing notes reviewed. Additional history obtained from patient. The patient's history was concerning for right hip pain s/p THR. Differential diagnosis: Etiologies such as infection, fracture, dislocation, neurovascular compromise, compartment syndrome, soft tissue injury, as well as others were entertained. Physical examination: Consistent with post operative changes only. ER treatment provided: 1mg Dilaudid On reassessment the patient felt better. Diagnostics interpreted by me: The labs revealed an anemia s/p THR (mildly reduced from previously). Coagulation studies and chemistry panel were unremarkable Imaging studies: Xray as above The patient was discussed with orthopedic surgeon welcome wagon host/hostess Dr New - who recommended US doppler and came to review the patient. Consultation: A consultation was placed with orthopedics (Dr New). The case was discussed and diagnostics were reviewed. The patient was evaluated in the ER and given history, examination, labs and imaging this does not appear to be a complication related to the surgery. She will be provided with a norco and ondansetron homepaks and will be following up with Dr Hart in the morning. On discharge she was able to ambulate with her walker. Medication Reconcilliation Current Medication List: was personally reviewed by me Blood Pressure Screening Patient's blood pressure: Elevated blood pressure Blood pressure disposition: Elevated BP felt to be situational, Referred to PCP Impression Primary Impression: Right hip pain Departure Information Dispostion Home / Self-Care Condition GOOD Referrals Dago Lozada,,D.O. (PCP) Patient Instructions [facility] Additional Instructions BACK PAIN/INJURY INSTRUCTIONS: DO NOT drive, drink alcohol, operate machinery, or perform dangerous activities today. You were given medications in the ER that can affect your ability to safely function or operate a vehicle. Oxycodone (OxyIR) 5mg: Take 1-2 pills every four hours as needed for breakthrough pain. Avoid alcohol, operating machinery or dangerous equipment, working on ladders or roofs, DRIVING, making important decisions, or situations where being under the influence may be dangerous. It is recommended to use an jrfh-vng-[id number] stool softener such as Colace, 100mg twice daily while taking this medication to avoid constipation. Acetaminophen(Tylenol) may be used for fever or pain. Use 1000mg every eight hours as needed. Avoid using more than 3000mg in a 24 hour period. This is available over the counter. Read all the package inserts or medication information paperwork provided. If you have any questions or concerns call your primary provider, pharmacist or the ER for assistance. Continue current medications. Return to the ER immediately for any numbness, tingling, severe pain, loss of control of your bowels or bladder, inability to walk, or as needed. Please follow up with Dr Hart as previously arranged in the morning. Please follow up with your PCP in the next 2 weeks due to your elevated blood pressure. Resident Tracking Resident Involvement: Resident Care Provided Care Provided: Adult ED
[2017-04-03 15:09] LABS: BASO % 0.1 %; BASO ABS # 0.01 K/uL (0-0.2); EOS % 2.1 %; EOS ABS # 0.18 K/uL (0-0.5); HEMATOCRIT 26.6 % (37-47); HEMOGLOBIN 9.2 g/dL (12.0-16.0); IG# 0.08 K/uL (0.00-0.02); LYMPH % 12.4 %; LYMPH ABS # 1.06 K/uL (1.2-3.4); MEAN CELL VOLUME 90.5 fL (80-100); MEAN CORPUSCULAR HEMOGLOBIN 31.3 pg (25-34); MEAN CORPUSCULAR HGB CONC 34.6 g/dl (32-36); MEAN PLATELET VOLUME 7.6 fL (7.4-10.4); MONO % 10.9 %; MONO ABS # 0.93 K/uL (0.11-0.59); NEUT % 73.6 %; NEUT ABS # 6.31 K/uL (1.4-6.5); PLATELET COUNT 433 K/uL (130-400); RED CELL DISTRIBUTION WIDTH CV 14.7 % (11.5-14.5); RED CELL DISTRIBUTION WIDTH SD 46.5 fL (36.4-46.3); WHITE BLOOD COUNT 8.57 K/uL (4.8-10.8)
[2017-04-03 15:20] LABS: INR 1.2 (0.9-1.1); PTT PATIENT 35.5 SECONDS (21.0-31.0)
[2017-04-03 15:33] LABS: CALCIUM 8.3 mg/dl (8.5-10.1); CREATININE 0.61 mg/dl (0.60-1.20); POTASSIUM 3.8 mmol/L (3.5-5.1)
[2017-04-03] MEDS ORDERED: FERR325T18 PO (15:41)
[2017-04-03] MEDS ORDERED: ACET-1256 PO (15:41)
[2017-04-03] MEDS ORDERED: FLUT115A INH (15:54)
[2017-04-03] MEDS ORDERED: NZRSHM TOP (15:54)
[2017-04-03] MEDS ORDERED: GUAISYP4 PO (15:54)
--- NOTE | 2017-04-03 16:00 | DIAGNOSTIC IMAGING REPORT ---
R PELVIS/UNILATERAL HIP 2-3VIEWS HISTORY: 76 years-old Female right hip pain, s/p right THR acute right hip pain with prior right total hip arthroplasty 12 days prior COMPARISON: Pelvis and right hip radiographs 03/22/2017 TECHNIQUE: AP view of the pelvis with 3 views of the right hip FINDINGS: Bones appear moderately demineralized. No pelvic ring fracture. Bilateral hip arthroplasties. Persistent moderate soft tissue swelling is noted about the right hip along with lateral skin krunal. Previously noted deep tissue air has predominantly resolved. Alignment of the right hip arthroplasty appears satisfactory. No retained foreign body identified. Surgical clip projects over the central pelvis and left lower abdomen. Moderate stool volume. IMPRESSION: 1. Bilateral hip arthroplasties with satisfactory alignment. No acute fracture or dislocation. 2. Moderate soft tissue swelling about the right hip. The above report was generated using voice recognition software. It may contain grammatical, syntax or spelling errors. Electronically signed by: Cj Acuña M.D. 04/03/2017 3:58 PM Dictated Date/Time: 04/03/2017 3:56 PM
--- NOTE | 2017-04-03 17:52 | DIAGNOSTIC IMAGING REPORT ---
R VENOUS DOPP LOWER EXT UNILAT HISTORY: 76 years-old Female right sided leg swelling acute swelling of the right lower extremity. Recent right hip arthroplasty. COMPARISON: None available TECHNIQUE: Multiple real-time sonographic images of the right lower extremity deep venous structures were obtained assessing grayscale appearance and color flow FINDINGS: There is normal flow, compressibility, phasicity, and augmentation of the right lower extremity deep venous structures. Limited visualization of the calf veins. Incision of the right lateral hip is noted with a linear complex fluid collection deep to the incision measuring 29.4 x 3.1 x 1.9 cm. Mild subcutaneous edema. IMPRESSION: 1. No sonographic evidence of deep venous thrombosis. 2. Linear complex fluid collection deep to the right hip incision measures up to 29.4 x 3.1 x 1.9 cm. Considerations would include postoperative seroma, hematoma or abscess. The above report was generated using voice recognition software. It may contain grammatical, syntax or spelling errors. Electronically signed by: Cj Acuña M.D. 04/03/2017 5:51 PM Dictated Date/Time: 04/03/2017 5:48 PM
[2017-04-03] MEDS ORDERED: ONDANSETRON HOME PACK 4MG OD TAB PO ONE (18:30)
[2017-04-03] MEDS ORDERED: NORCO 5/325MG HOME PACK PO ONE (18:30)
[2017-04-03 18:40] VITALS: BP 141/62; PULSE 85; O2SAT 97
--- NOTE | 2017-04-03 22:17 | EMERGENCY ROOM VISIT NOTE ---
History Report prepared by Clara: Renetta Villavicencio Under the Supervision of: Dr. Jigar Rivas M.D. First contact with patient: 14:43 Chief Complaint: HIP PAIN Stated Complaint: HIP PAIN History of Present Illness The patient is a 76 year old female who presents to the Emergency Room with complaints of persistent right hip pain that began on 03/22/2017. The patient rates his discomfort an 8 out 10 in severity. The patient denies any trauma to her hip or in general. The patient states that she had an elective total hip arthroplasty performed by Dr. Hart for right hip avascular necrosis on 2016. She notes that since the surgery, she has been experiencing worsening pain to her right hip. The patient states that the pain has been the worst in the past 2 days. She has noticed increased swelling and redness on the upper part of her hip. The patient denies any drainage from her wound. She has been having intermittent chills for the past 2 days. Per EMS, the patient was given 12mg of morphine, noting it caused some relieve. The patient notes she takes Xarelto for her paroxysmal atrial fibrillation. Pt denies LOC, headache, fevers, diaphoresis, visual changes, neck pain, chest pain, breathing difficulties, nausea, vomiting, abdominal pain, back pain, melena, hematochezia, urinary symptoms, numbness, weakness, lymphadenopathy, rash, or other complaints. Source of History: patient Onset: 03/22/2017 Position: other (hip) Symptom Intensity: 8/10 Quality: other (hip pain) Timing: other (persistent) Review of Systems See HPI for pertinent positives and negatives. A total of ten systems were reviewed and were otherwise negative. Past Medical & Surgical Medical Problems: (1) Arthritis (2) Dyslipidemia (3) HTN (hypertension) (4) Moderate to severe mitral regurgitation (5) Osteopenia (6) Paroxysmal atrial fibrillation (7) Right Hip AVN Family History Hypertension Social History Smoking Status: Never Smoker Smokeless Tobacco Use: No Marital Status: Housing Status: lives with significant other Occupation Status: retired Current/Historical Medications Scheduled Acetaminophen (Tylenol), 1,000 MG PO Q8 Cholecalciferol (Vitamin D3), 5,000 UNITS PO QPM Escitalopram (Lexapro), 10 MG PO QAM Ferrous Gluconate (Ferrous Gluconate), 324 MG PO BIDM Fluticasone Propionate (Nasal) (Flonase Allergy Relief), 2 SPRAYS INTNAS BID Fluticasone-Salmeterol 115/21 Mcg (Advair Hfa 115/21 Mcg), 2 PUFF INH PRN Tchhsblpabz-Ilmyurigpsp-Mai C- (Glucosamine Chondroitin), 1 TAB PO QPM Guaifenesin/Codeine (Robitussin-Ac Syrup), 5 ML PO PRN UD Ketoconazole (Ketoconazole), 1 APPLN TOP DAILY Losartan Potassium (Losartan Potassium), 25 MG PO QAM Ocuvite Preservision (Ocuvite Preservision), 1 TAB PO BID Omeprazole (Prilosec), 40 MG PO QPM Rivaroxaban (Xarelto), 20 MG PO QAM Verapamil Hcl (Calan Sr Ext Rel), 120 MG PO QPM Scheduled PRN Diphenhydramine Hcl (Sleep) (Sleep Aid), 25 MG PO HS PRN for RN Tramadol HCl (Tramadol HCl), 50-100 MG PO Q6H PRN for Pain Allergies Coded Allergies: Sulfa Antibiotics (Verified Allergy, Unknown, RASH, 03/22/17) Physical Exam Vital Signs Date Time Temp Pulse Resp B/P (MAP) Pulse Ox O2 Delivery O2 Flow Rate FiO2 04/03/17 18:40 85 18 141/62 97 Room Air 04/03/17 18:06 81 20 141/62 95 Room Air 04/03/17 16:32 102 20 160/66 93 Room Air 04/03/17 15:04 69 04/03/17 14:43 36.5 82 18 167/80 96 Room Air Physical Exam GENERAL: Awake, alert, uncomfortable-appearing, in no distress HENT: Normocephalic, atraumatic. Oropharynx unremarkable. EYES: Normal conjunctiva. Sclera non-icteric. NECK: Supple. No nuchal rigidity. FROM. No JVD. RESPIRATORY: Clear to auscultation. CARDIAC: Regular rate, normal rhythm. Extremities warm and well perfused. Pulses equal. ABDOMEN: Soft, non-distended. No tenderness to palpation. No rebound or guarding. No masses. RECTAL: Deferred. MUSCULOSKELETAL: Moderate tenderness over right hip incision, minimal redness, no drainage, krunal in place. The back is symmetrical on inspection without obvious abnormality. There is no CVA tenderness to palpation. No joint edema. Range of motion in the RIGHT hip is limited secondary to pain. No shortening or abnormal rotation of leg. Mild right leg edema. No discoloration. NEURO: Normal sensorium. No sensory or motor deficits noted. SKIN: No rash or jaundice noted. Medical Decision & Procedures ER Provider Diagnostic Interpretation: Radiology results as stated below per my review and radiologist interpretation: R PELVIS/UNILATERAL HIP 2-3VIEWS HISTORY: 76 years-old Female right hip pain, s/p right THR acute right hip pain with prior right total hip arthroplasty 12 days prior COMPARISON: Pelvis and right hip radiographs 03/22/2017 TECHNIQUE: AP view of the pelvis with 3 views of the right hip FINDINGS: Bones appear moderately demineralized. No pelvic ring fracture. Bilateral hip arthroplasties. Persistent moderate soft tissue swelling is noted about the right hip along with lateral skin krunal. Previously noted deep tissue air has predominantly resolved. Alignment of the right hip arthroplasty appears satisfactory. No retained foreign body identified. Surgical clip projects over the central pelvis and left lower abdomen. Moderate stool volume. IMPRESSION: 1. Bilateral hip arthroplasties with satisfactory alignment. No acute fracture or dislocation. 2. Moderate soft tissue swelling about the right hip. The above report was generated using voice recognition software. It may contain grammatical, syntax or spelling errors. Electronically signed by: Cj Acuña M.D. 04/03/2017 3:58 PM R VENOUS DOPP LOWER EXT UNILAT HISTORY: 76 years-old Female right sided leg swelling acute swelling of the right lower extremity. Recent right hip arthroplasty. COMPARISON: None available TECHNIQUE: Multiple real-time sonographic images of the right lower extremity deep venous structures were obtained assessing grayscale appearance and color flow FINDINGS: There is normal flow, compressibility, phasicity, and augmentation of the right lower extremity deep venous structures. Limited visualization of the calf veins. Incision of the right lateral hip is noted with a linear complex fluid collection deep to the incision measuring 29.4 x 3.1 x 1.9 cm. Mild subcutaneous edema. IMPRESSION: 1. No sonographic evidence of deep venous thrombosis. 2. Linear complex fluid collection deep to the right hip incision measures up to 29.4 x 3.1 x 1.9 cm. Considerations would include postoperative seroma, hematoma or abscess. The above report was generated using voice recognition software. It may contain grammatical, syntax or spelling errors. Electronically signed by: Cj Acuña M.D. 04/03/2017 5:51 PM Laboratory Results 04/03/17 14:43 Red Blood Count 2.94, Mean Corpuscular Volume 90.5, Mean Corpuscular Hemoglobin 31.3, Mean Corpuscular Hemoglobin Concent 34.6, Mean Platelet Volume 7.6, Neutrophils (%) (Auto) 73.6, Lymphocytes (%) (Auto) 12.4, Monocytes (%) (Auto) 10.9, Eosinophils (%) (Auto) 2.1, Basophils (%) (Auto) 0.1, Neutrophils # (Auto ) 6.31, Lymphocytes # (Auto) 1.06, Monocytes # (Auto) 0.93, Eosinophils # (Auto ) 0.18, Basophils # (Auto) 0.01 04/03/17 14:43 Test 04/03/17 14:43 White Blood Count 8.57 K/uL (4.8-10.8) Red Blood Count 2.94 M/uL (4.2-5.4) Hemoglobin 9.2 g/dL (12.0-16.0) Hematocrit 26.6 % (37-47) Mean Corpuscular Volume 90.5 fL (80-100) Mean Corpuscular Hemoglobin 31.3 pg (25-34) Mean Corpuscular Hemoglobin Concent 34.6 g/dl (32-36) Platelet Count 433 K/uL (130-400) Mean Platelet Volume 7.6 fL (7.4-10.4) Neutrophils (%) (Auto) 73.6 % Lymphocytes (%) (Auto) 12.4 % Monocytes (%) (Auto) 10.9 % Eosinophils (%) (Auto) 2.1 % Basophils (%) (Auto) 0.1 % Neutrophils # (Auto) 6.31 K/uL (1.4-6.5) Lymphocytes # (Auto) 1.06 K/uL (1.2-3.4) Monocytes # (Auto) 0.93 K/uL (0.11-0.59) Eosinophils # (Auto) 0.18 K/uL (0-0.5) Basophils # (Auto) 0.01 K/uL (0-0.2) RDW Standard Deviation 46.5 fL (36.4-46.3) RDW Coefficient of Variation 14.7 % (11.5-14.5) Immature Granulocyte % (Auto) 0.9 % Immature Granulocyte # (Auto) 0.08 K/uL (0.00-0.02) Prothrombin Time 12.3 SECONDS (9.0-12.0) Prothromb Time International Ratio 1.2 (0.9-1.1) Activated Partial Thromboplast Time 35.5 SECONDS (21.0-31.0) Partial Thromboplastin Ratio 1.4 Anion Gap 7.0 mmol/L (3-11) Est Creatinine Clear Calc Drug Dose 68.4 ml/min Estimated GFR () 100.6 Estimated GFR (Non- 86.8 BUN/Creatinine Ratio 14.9 (10-20) Calcium Level 8.3 mg/dl (8.5-10.1) Laboratory results reviewed by me Medications Administered Medications (Trade) Dose Ordered Sig/Anna Route Start Time Stop Time Status Last Admin Dose Admin Hydromorphone HCl (Dilaudid Inj) 1 mg NOW STAT IV 04/03/17 14:56 04/03/17 14:57 DC 04/03/17 15:01 1 MG Acetaminophen/ Hydrocodone Bitart (Coleman 5/325mg Home Pack) 1 homepack UD ONCE PO 04/03/17 18:30 04/03/17 18:31 DC 04/03/17 18:44 1 HOMEPACK Ondansetron HCl (ZOFRAN ODT 4MG Home Pack) 1 homepack UD ONCE PO 04/03/17 18:30 04/03/17 18:31 DC 04/03/17 18:44 1 HOMEPACK ED Course 1452: The patient was evaluated in room C9. A complete history and physical exam was performed. 1456: Ordered Hydromorphone HCL 1mg IV. 1609: Discussed the patient's case. Dr. New recommended getting an ultrasound doppler. 1830: Dr. Flaquito New evaluated the patient. He agrees that she can go home and recommends she takes some pain medication. The patient will have a follow up in his office tomorrow. Ordered Ondansetron HCL 1 homepack PO and Coleman 5/ 325mg 1 home pack PO. 1835:I reevaluated the patient. Discussed results and discharge instructions: She verbalized understanding and agreement. The patient is ready for discharge. Medical Decision Triage Nursing notes reviewed. The patient's presentation and history were concerning for hip pain. Etiologies such as soft tissue injury, fracture, dislocation, postoperative pain , infection, DVT, neurovascular compromise, compartment syndrome, as well as others were entertained. The patient was evaluated. Clinically she was doing well but did require morphine prehospital and additional IV Dilaudid here. X-ray imaging did not reveal any evidence of fracture or dislocation. Clinically there was no clear evidence of infection. She had a normal white blood cell count and no fever. Ultrasound imaging revealed a post operative fluid collection incision. There is no evidence of DVT. This would be most consistent with a seroma as there is no significant bruising and she has no signs of infection. The patient had a consultation placed with orthopedics. She did see Dr. New in the Emergency Room and he agreed that her wound looked excellent and there was no evidence of fracture or dislocation. It appears that the patient has been more active and has not been taking pain medication at home other than occasional tramadol doses. I suspect that this is postoperative pain from the healing process as did orthopedics. She has an appointment tomorrow morning with her orthopedist. She was given a home pack of hydrocodone to use if necessary. Orthopedics recommended further pain management in the office. The patient and were very pleased with the treatment and plan. I gave my usual and customary discussion regarding this issue. The patient was seen and examined with Dr. Baer, resident physician. We discussed the case and treatments ordered, reviewed the results, and determine the disposition. Please refer to the resident's note for additional details. I have been directly involved with the management and disposition as well as independently evaluated the patient as documented in this note. By the evaluation outlined above other emergent etiologies such as those listed in the differential, as well as others, were deemed relatively unlikely. The patient was educated about the findings as listed above. All questions were answered and the patient was pleased with the treatment. Return instructions were outlined and the patient was discharged in stable condition. The patient was referred to Dr. Hart of orthopedics tomorrow morning for follow-up for a recheck of the current condition. Medication Reconcilliation Current Medication List: was personally reviewed by me Blood Pressure Screening Patient's blood pressure: Elevated blood pressure Blood pressure disposition: Elevated BP felt to be situational Consults Time Called: 1605 Consulting Physician: Dr. Flaquito New, orthopedics Returned Call: 1609 Discussed the patient's case. Dr. New recommended getting an ultrasound doppler. Impression Primary Impression: Right hip pain Scribe Attestation The scribe's documentation has been prepared under my direction and personally reviewed by me in its entirety. I confirm that the note above accurately reflects all work, treatment, procedures, and medical decision making performed by me. Departure Information Dispostion Home / Self-Care Referrals Dago Lozada Jr, D.O. (PCP) Forms HOME CARE DOCUMENTATION FORM, IMPORTANT VISIT INFORMATION, WORK / SCHOOL INSTRUCTIONS Patient Instructions My [facility] Additional Instructions DO NOT drive, drink alcohol, operate machinery, or perform dangerous activities today. You were given medications in the ER that can affect your ability to safely function or operate a vehicle. Hydrocodone/acetaminophen 5/325mg: Take 1-2 pills every 6 hours as needed for pain. Avoid additional Acetaminophen/Tylenol, alcohol, operating machinery or dangerous equipment, working on ladders or roofs, DRIVING, or situations where being under the influence may be dangerous. It is recommended to use a stool softener such as Colace, 100mg twice daily while taking this medication to avoid constipation. Acetaminophen(Tylenol) may be used for fever or pain. Use 1000mg every eight hours as needed. Avoid using more than 3000mg in a 24 hour period. This is available over the counter. Read all the package inserts or medication information paperwork provided. If you have any questions or concerns call your primary provider, pharmacist or the ER for assistance. Continue current medications. Return to the ER immediately for any numbness, tingling, severe pain, loss of control of your bowels or bladder, inability to walk, or as needed. Please follow up with Dr Hart as previously arranged in the morning. Please follow up with your PCP in the next 2 weeks due to your elevated blood pressure.
--- NOTE | 2017-04-03 23:34 | ORTHOPEDIC CONSULTATION ---
DATE OF CONSULTATION: 04/03/2017 HISTORY OF PRESENT ILLNESS: I was contacted by the Emergency Room regarding Domenica. She is 10 day status post a right total hip replacement done by Dr. Hart. Over the past 48 hours she experienced increasing pain to the point where she had 15/10 pain and was brought to the Emergency Room by an ambulance. She has been taking Tylenol and Ultram for pain. She denies fevers. She reports having some chills and sweats. There has not been any wound drainage. Her right leg has been swollen. There has not been any type of injury. She has been on her feet a lot and has been increasing her activity. She is afebrile. Her vital signs are stable. White count is normal. She is not substantially anemic. X-ray of the right hip shows good positioning of the components. No dislocation. No evidence of loosening or fracture. Ultrasound shows a fluid collection consistent with what would be seen postoperatively. There is no DVT. She has 5/5 ankle and toe plantar flexion and dorsiflexion strength, normal sensation in the foot with a 1+ dorsalis pedis pulse. She has 2-3+ edema of her right leg. Her calf is nontender. She does have a little bit of bruising on the anterior aspect of her knee. She can bend her knee and hip to about 45 degrees. Her thigh is minimally swollen. Calf not tense. She does have swelling about the right hip area increased compared to the opposite side. There is some marginal erythema around the krunal, but no active wound drainage and it did not feel any fluctuance. She does not have any fluid in her buttock or tenderness. This seems to be appropriate and is located around the incisional area. IMPRESSION: Pain status post right hip replacement. PLAN: I do not see any obvious problems or complications at present. She does not have a DVT. There is no complication related to the surgery in terms of infection, abnormal fluid collection, dislocation or fracture. I suspect that perhaps she required more pain medicine and the ER physician will supply this to her. Additionally, she may have been overly active. I have encouraged her to rest and elevate her leg as well as to wear stockings to get rid of the swelling. She is to continue with her hip precautions and other instructions given to her by Dr. Hart. I have spoken with Dr. Hart. He will follow up with the patient as scheduled tomorrow for the regular outpatient visit. If there are any problems she will return to the Emergency Room. She is to ambulate with her walker.
== END 2017-04-03 18:53 | disposition home or self-care (01) ==
LOC: EDBD 14:39 → C.EDC 14:40
DX: M25.551 Pain in right hip (principal); M87.051 Idiopathic aseptic necrosis of right femur; I48.0 Paroxysmal atrial fibrillation; M19.90 Unspecified osteoarthritis, unspecified site; E78.5 Hyperlipidemia, unspecified; I10 Essential (primary) hypertension; I34.0 Nonrheumatic mitral (valve) insufficiency; M85.80 Other specified disorders of bone density and structure, unspecified site; Z79.01 Long term (current) use of anticoagulants; Z96.643 Presence of artificial hip joint, bilateral; Z82.49 Family history of ischemic heart disease and other diseases of the circulatory system

== ENCOUNTER → 2017-06-26 | Outpatient (CLI) | payer OTHER ==
[~2017-06-26] MED LIST changes: +ACET-1256 PO; -ACET-24 PO; -ADVAIR INH; +FERR325T18 PO; +FLUT115A INH; -FRRG PO; +GUAISYP4 PO; -KETOCONAZOLE TOP; +NZRSHM TOP
[2017-06-26 12:20] LABS: BASO % 0.3 %; BASO ABS # 0.01 K/uL (0-0.2); EOS % 6.8 %; EOS ABS # 0.25 K/uL (0-0.5); HEMATOCRIT 39.2 % (37-47); IG# 0.01 K/uL (0.00-0.02); LYMPH % 23.5 %; LYMPH ABS # 0.86 K/uL (1.2-3.4); MEAN CELL VOLUME 88.9 fL (80-100); MEAN CORPUSCULAR HEMOGLOBIN 29.5 pg (25-34); MEAN CORPUSCULAR HGB CONC 33.2 g/dl (32-36); MONO % 17.5 %; MONO ABS # 0.64 K/uL (0.11-0.59); NEUT % 51.6 %; NEUT ABS # 1.89 K/uL (1.4-6.5); PLATELET COUNT 278 K/uL (130-400); RED CELL DISTRIBUTION WIDTH CV 13.7 % (11.5-14.5); RED CELL DISTRIBUTION WIDTH SD 45.1 fL (36.4-46.3); WHITE BLOOD COUNT 3.66 K/uL (4.8-10.8)
[2017-06-26 13:19] LABS: ALT/SGPT 17 U/L (12-78); AST/SGOT 16 U/L (15-37); BLOOD UREA NITROGEN 12 mg/dl (7-18); CALCIUM 8.8 mg/dl (8.5-10.1); CARBON DIOXIDE 28 mmol/L (21-32); CREATININE 0.82 mg/dl (0.60-1.20); GLUCOSE 77 mg/dl (70-99); POTASSIUM 4.3 mmol/L (3.5-5.1); SODIUM 135 mmol/L (136-145)
== END | disposition home or self-care (01) ==
LOC: C.LABPVFM 08:10
DX: I10 Essential (primary) hypertension (principal); E78.5 Hyperlipidemia, unspecified; D64.9 Anemia, unspecified

== ENCOUNTER 2020-11-24 00:56 | Observation (INO) ==
[2020-11-24] MEDS ORDERED: SODIUM CHLORIDE 0.9% 500 ML IV ONE (01:03)
[2020-11-24] MEDS ORDERED: LORazepam 1 MG/2 ML VIAL IV STA (01:03)
--- NOTE | 2020-11-24 01:08 | Emergency Department Note ---
Impression & Plan Seizure, Post-ictal state ED Provider Note Name: CONNIE CASTELLANO Age: 80 Sex: F Arrives Via: Ambulance Informant: , EMS (patient post ictal and poor historian on arrival) ED Provider: Noe Roberson MD Chief Complaint: Seizure Impression: See Above Medical Decision Makin yr old female with history CVA, HTN, HLP, P-AFib, and previous seizure of uncertain etiology about 6 months ago. She was working in the yard the last two days with some dehydration. Tonight 2-3 minute seizure while laying in bed and then quite prolonged post-ictal period. Still confused and dry heaving on arrival thus Ativan given as zofran ineffective. CT head negatve, cxr OK, and labs unremarkable. Suspect this is micro cva disease that lowered threshold and with dehydration/exhaustion proceeded to seizure. She is stable, breathing comfortably but given degree of post ictal and still somnolent will require further monitoring/management. Hospitalist consulted for evaluation. I do not feel ther eis clear evidence of infectious etiology at this time and do not feel that LP indicated. Prior Medical Record and Triage/Nursing Notes reviewed by Me Additional history obtained from chart and Differentials:Infection, hypoglycemia, electrolyte abnormalities, overdose, toxicologic, cardiac sources, intracerebral event, neurologic, trauma, as well as other pathologies. Vital Signs: reviewed and remarkable for no significant abnormalities Interventions: saline lock, ativan 1mg IV, nss bolu Labs:Reviewed and remarkable for no significant abnormalities Imaging:[facility] Radiologist interpretation reviewed by me: CT head no acute findings X ray results are stated below per my interpretation: Chest: 1 view: No infiltrate, no effusion, normal cardiac border. EKG:Per My Interpretation: Indication Seizure/AMS: Atrial Paced 68 bpm, qtc 421. No Ectopy. No Ischemia. Compared to EKG 06/23/20, no significant changes. Cardiac/Tele Monitoring: Cardiac Monitoring: An Order was placed for continuous cardiac monitoring. The monitor shows a rate of 70 with a paced rhythm. Consults:Dr Klaus ARDON Hospitalist Plan: Disposition:Hospitalization. Condition: Good History of Present Illness:80 yr old female arrives for evaluation post seizure. Patient notes she was feeling well today other than a bit tired. Apparently about an hour ago had a 2 to 3 minute seizure. Full body tonic/clonic. Witnessed by while in bed. She then was confused/altered until arrival to ED via EMS thus an hour+ post ictal period. Given Zofran en route for nausea without improvement. She currently is noting significant nausea. No fevers, chills, headache, chest pain, abdominal pain, neck pain, back pain, urinary./bowel symptoms, leg swelling, calf pain nor other symptoms. Notes history of seizure 4 months ago, denies any medications taken for seizures. She is on Eliquis for history of Afib. No recent falls, trauma, injuries. Notes working in [employer] yesterday for several hours and feeling very weak after that. ROS: See above HPI for pertinent positives & negatives. A total of 10 systems reviewed and were otherwise negative. Past Medical History:See Below Past Surgical History:See Below Family History:See Below Social History:See Below Home Medications:See Below Allergies:Sulfa Vitals:Blood Pressure: 137/52, Pulse 96, RR 20, T 36.5C, O2 96% on RA Physical Exam: GENERAL: Patient is nauseous/uncomfortable appearing and in mild distress, dry heaving periodically. EYES: No scleral icterus, unremarkable pupils. ENT: Mucous membranes moist, no nasal congestion. NECK: No masses appreciated, nomeningismus, trachea is midline. RESPIRATORY: No dyspnea. Clear to auscultation and equal bilaterally. No wheeze, no rhonchi. CARDIOVASCULAR: Regular rate and rhythm.No murmurs, rubs, gallops appreciated. GASTROINTESTINAL: Abdomen soft, non-tender, no peritonitis.Bowel sounds positive.No masses appreciated. BACK: No midline tenderness, no CVA tenderness EXTREMITIES: Normal motion all extremities, no cyanosis, mild lower leg edema. NEUROLOGIC: Slightly confused, though answering some questions, forgetting where she is, no acute motor or sensory deficits, generalized weakness, cranial nerves grossly intact. SKIN: No rash, no jaundice, no diaphoresis. PSYCH: Somnolent GCS: 13 ED Course: Times/Reassessments: improved post ativan though somnolent. at bedside and agrees with plan for further monitoring in hospital Noe Roberson MD Past Med/Surg History Medical History (Updated 11/24/20 @ 06:06 by Noe Roberson MD) Appetite lost Avascular necrosis of bone of right hip Breast mass Degenerative joint disease of left hip Elevated TSH Onychomycosis Sick sinus syndrome Tinea pedis Tremor Vitamin B 12 deficiency Vitamin D deficiency Surgical History Breast enlargement History of bilateral hip replacements S/P appendectomy S/P cardiac pacemaker procedure S/P section S/P dilatation and curettage S/P hysterectomy with oophorectomy S/P tonsillectomy Status post tubal ligation Family History Mother Alzheimer disease Breast cancer Social History Smoking Status: Current every day smoker Tobacco Type: Cigarettes Cigarettes Per Day: 5; Do You Dip or Chew Tobacco: No; Hx Alcohol Use: Yes Alcohol type: wine and hard liquor Hx Substance Use: No Preferred Language: [place]guill[place] Communication Ability: Effective Minister Of Religion Required: No Beliefs That Will Affect Care: None marital status: Current Living Situation: Spouse current occupational status: retired Other Information That Helps Us Care for You: No Feels Safe at Home: Yes Safety Concerns: Feels Safe At This Time Assistive Devices: Glasses Allergies Allergies Allergy/AdvReac Type Severity Reaction Status Date / Time Sulfa (Sulfonamide Allergy Intermediate RASH Verified 08/22/20 10:48 Antibiotics) Home Meds Home Medications Medication Instructions Recorded Confirmed cholecalciferol (vitamin D3) 125 5,000 units PO HS cap 01/06/19 08/22/20 mcg (5,000 unit) capsule ketoconazole 2 % topical cream 1 appln TOPICAL BID PRN #1 gm 01/06/19 08/22/20 losartan 25 mg tablet 25 mg PO QAM tab 01/06/19 08/22/20 rosuvastatin 5 mg tablet 5 mg PO QAM tab 01/06/19 08/22/20 fluocinonide 0.05 % topical cream 1 applic TOPICAL DIRECTED PRN 01/09/19 08/22/20 gm ketoconazole 2 % shampoo 1 applic TOPICAL DIRECTED #1 ml 01/09/19 08/22/20 diltiazem HCl 120 mg 120 mg PO QAM 02/17/19 08/22/20 tablet,extended release 24 hr (Cardizem LA) gabapentin 100 mg capsule 200 mg PO BID #360 cap 02/19/20 08/22/20 latanoprost 0.005 % eye drops 1 drp OPHTHALMIC (EYE) HS ml 02/19/20 08/22/20 lifitegrast 5 % eye drops in a 1 drp OPHTHALMIC (EYE) HS PRN ea 02/19/20 08/22/20 dropperette (Xiidra) vitamins A,C,E-cuwt-cmdpzw 14,320 1 cap PO BID 06/24/20 08/22/20 unit-226 mg-200 unit capsule (PreserVision AREDS) Previous Rx's Medication Instructions Recorded apixaban 5 mg tablet (Eliquis) 5 mg PO BID #180 tab 06/27/20 Results & Data (ED) Vital Signs Vital Signs - 24 hr 11/24/20 01:12 11/24/20 01:48 Temperature 36.5 C Temperature Source Oral Pulse Rate 87 Pulse Rate [Apical] 87 71 Respiratory Rate 22 20 Blood Pressure 173/69 H Blood Pressure [Right Arm] 173/69 H 137/52 L Blood Pressure Mean 103 Blood Pressure Mean [Right Arm] 103 80 Pulse Oximetry 94 96 Oxygen Delivery Method Room Air Room Air Sepsis Recent Fever Within 48 Hours No Sepsis New/Unexplained Change in Mental Status N/A Sepsis Action Taken by Nursing No Action Required Laboratory Data Result diagrams: 11/24/20 01:10 11/24/20 01:10 Lab Results 11/24/20 11/24/20 11/24/20 Range/Units 01:10 01:10 01:28 WBC 4.23 L (4.8-10.8) K/uL RBC 4.04 L (4.2-5.4) M/uL Hgb 12.3 (12.0-16.0) g/dL Hct 36.8 L (37-47) % MCV 91.1 (80-100) fL MCH 30.4 (25-34) pg MCHC 33.4 (32-36) g/dL RDW Std Deviation 44.7 (36.4-46.3) fL RDW Coeff of Cecilia 13.5 (11.5-14.5) % Plt Count 255 (130-400) K/uL MPV 8.2 (7.4-10.4) fL Immature Gran % (Auto) 0.5 % Neut % (Auto) 48.8 % Lymph % (Auto) 30.0 % [place] % (Auto) 15.8 % Eos % (Auto) 4.7 % Baso % (Auto) 0.2 % Neut # (Auto) 2.06 (1.4-6.5) K/uL Lymph # (Auto) 1.27 (1.2-3.4) K/uL [place] # (Auto) 0.67 H (0.11-0.59) K/uL Eos # (Auto) 0.20 (0-0.5) K/uL Baso # (Auto) 0.01 (0-0.2) K/uL Immature Gran # (Auto) 0.02 (0.00-0.02) K/uL Sodium 137 (136-145) mmol/L Potassium 3.7 (3.5-5.1) mmol/L Chloride 107 (98-107) mmol/L Carbon Dioxide 24 (21-32) mmol/L Anion Gap 6.0 (3-11) BUN 11 (7-18) mg/dl Creatinine 0.75 (0.6-1.2) mg/dl Est Cr Clr Drug Dosing 52.0 ml/min Est GFR ( Amer) 86.0 ml/min Est GFR (Non-Af Amer) 74.2 ml/min BUN/Creatinine Ratio 14.3 (10-20) Glucose 94 (70-99) mg/dl Calcium 8.7 (8.5-10.1) mg/dl Magnesium 2.2 (1.8-2.4) mg/dl Total Bilirubin 0.1 L (0.2-1) mg/dl Direct Bilirubin 0.1 (0-0.2) mg/dl AST 18 (15-37) U/L ALT 23 (12-78) U/L Alkaline Phosphatase 125 H (45-117) U/L Troponin I < 0.015 (0-0.045) ng/ml Total Protein 6.7 (6.4-8.2) gm/dl Albumin 3.4 (3.4-5.0) gm/dl Lipase 181 (73-393) U/L TSH 6.830 H (0.300-4.500) uIu/ml Urine Color Urine Appearance (Clear) Urine pH (4.5-7.5) Ur Specific [place] (1.000-1.030) Urine Protein (Negative) Urine Glucose (UA) (Negative) Urine Ketones (Negative) Urine Blood (Negative) Urine Nitrite (Negative) Urine Bilirubin (Negative) Urine Urobilinogen (Negative) Ur Leukocyte Esterase (Negative) Urine WBC (Auto) (0-5) /hpf Urine RBC (Auto) (0-4) /hpf U Hyaline Cast (Auto) (0-5) /lpf U Epithel Cells (Auto) (0-5) /lpf Urine Bacteria (Auto) (Negative) COVID-19 Eval Order Covid19 at [facility] SARS-CoV-2 (PCR) (Negative) 11/24/20 11/24/20 Range/Units 01:28 01:49 WBC (4.8-10.8) K/uL RBC (4.2-5.4) M/uL Hgb (12.0-16.0) g/dL Hct (37-47) % MCV (80-100) fL MCH (25-34) pg MCHC (32-36) g/dL RDW Std Deviation (36.4-46.3) fL RDW Coeff of Cecilia (11.5-14.5) % Plt Count (130-400) K/uL MPV (7.4-10.4) fL Immature Gran % (Auto) % Neut % (Auto) % Lymph % (Auto) % [place] % (Auto) % Eos % (Auto) % Baso % (Auto) % Neut # (Auto) (1.4-6.5) K/uL Lymph # (Auto) (1.2-3.4) K/uL [place] # (Auto) (0.11-0.59) K/uL Eos # (Auto) (0-0.5) K/uL Baso # (Auto) (0-0.2) K/uL Immature Gran # (Auto) (0.00-0.02) K/uL Sodium (136-145) mmol/L Potassium (3.5-5.1) mmol/L Chloride (98-107) mmol/L Carbon Dioxide (21-32) mmol/L Anion Gap (3-11) BUN (7-18) mg/dl Creatinine (0.6-1.2) mg/dl Est Cr Clr Drug Dosing ml/min Est GFR ( Amer) ml/min Est GFR (Non-Af Amer) ml/min BUN/Creatinine Ratio (10-20) Glucose (70-99) mg/dl Calcium (8.5-10.1) mg/dl Magnesium (1.8-2.4) mg/dl Total Bilirubin (0.2-1) mg/dl Direct Bilirubin (0-0.2) mg/dl AST (15-37) U/L ALT (12-78) U/L Alkaline Phosphatase (45-117) U/L Troponin I (0-0.045) ng/ml Total Protein (6.4-8.2) gm/dl Albumin (3.4-5.0) gm/dl Lipase (73-393) U/L TSH (0.300-4.500) uIu/ml Urine Color Yellow Urine Appearance Clear (Clear) Urine pH 6.5 (4.5-7.5) Ur Specific [place] 1.010 (1.000-1.030) Urine Protein Negative (Negative) Urine Glucose (UA) Negative (Negative) Urine Ketones Negative (Negative) Urine Blood Negative (Negative) Urine Nitrite Negative (Negative) Urine Bilirubin Negative (Negative) Urine Urobilinogen Negative (Negative) Ur Leukocyte Esterase Trace H (Negative) Urine WBC (Auto) 1-5 (0-5) /hpf Urine RBC (Auto) 0-4 (0-4) /hpf U Hyaline Cast (Auto) 1-5 (0-5) /lpf U Epithel Cells (Auto) 10-20 H (0-5) /lpf Urine Bacteria (Auto) Negative (Negative) COVID-19 Eval Order SARS-CoV-2 (PCR) NEGATIVE (Negative) Administered Medications Discontinued Medications Lorazepam (Ativan) 1 mg in 2 mls @ 2 mls/min IV NOW STA Stop: 11/24/20 01:04 Last Admin: 11/24/20 01:25 Dose: 2 mls/min Documented by: [id number] Sodium Chloride (Nss) 500 mls @ 999 mls/hr IV .Q31M ONE Stop: 11/24/20 01:33 Last Admin: 11/24/20 01:25 Dose: 999 mls/hr Documented by: [id number] Discharge Plan Visit Data Chief Complaint: Seizure Stated Complaint: SEIZURE/POST-ICHTAL ED Provider: Noe Roberson Discharge Problem: Seizure, Post-ictal state Patient Disposition: Admitted As Inpatient Discharge Instructions Interventions: ED Discharge Assessment Last Done: 11/24/20 05:18
[2020-11-24 01:18] LABS: Basophils # (auto) 0.01 K/uL (0-0.2); Basophils % (auto) 0.2 %; Eosinophils % (auto) 4.7 %; Hematocrit (blood only) 36.8 % (37-47); Hemoglobin 12.3 g/dL (12.0-16.0); Immature Granulocytes # (auto) 0.02 K/uL (0.00-0.02); Immature Granulocytes % (auto) 0.5 %; Lymphocytes # (auto) 1.27 K/uL (1.2-3.4); Mean Corpuscular Hemoglobin 30.4 pg (25-34); Mean Corpuscular Hgb Conc 33.4 g/dL (32-36); Mean Corpuscular Volume 91.1 fL (80-100); Mean Platelet Volume 8.2 fL (7.4-10.4); Monocytes # (auto) 0.67 K/uL (0.11-0.59); Monocytes % (auto) 15.8 %; Neutrophils # (auto) 2.06 K/uL (1.4-6.5); Neutrophils % (auto) 48.8 %; Platelet Count 255 K/uL (130-400); RDW Coefficient of Variation 13.5 % (11.5-14.5); RDW Standard Deviation 44.7 fL (36.4-46.3); Red Blood Count 4.04 M/uL (4.2-5.4); White Blood Count 4.23 K/uL (4.8-10.8)
[2020-11-24 01:35] LABS: Alanine Aminotransferase 23 U/L (12-78); Albumin Level 3.4 gm/dl (3.4-5.0); Aspartate Aminotransferase 18 U/L (15-37); BUN Creatinine Ratio 14.3 (10-20); Bilirubin Direct 0.1 mg/dl (0-0.2); Blood Urea Nitrogen 11 mg/dl (7-18); Calcium 8.7 mg/dl (8.5-10.1); Carbon Dioxide 24 mmol/L (21-32); Chloride 107 mmol/L (98-107); Est GFR (Non-African American) 74.2 ml/min; Glucose 94 mg/dl (70-99); Lipase 181 U/L (73-393); Magnesium 2.2 mg/dl (1.8-2.4); Potassium 3.7 mmol/L (3.5-5.1); Sodium 137 mmol/L (136-145)
[2020-11-24 01:47] LABS: Alkaline Phosphatase 125 U/L (45-117); Bilirubin,Total 0.1 mg/dl (0.2-1); Total Protein 6.7 gm/dl (6.4-8.2); Troponin I < 0.015 ng/ml (0-0.045)
[2020-11-24 03:16] LABS: Appearance Urine Clear (Clear); Bacteria Urine Automated Negative (Negative); Bilirubin Urine Negative (Negative); Blood Urine Negative (Negative); Color Urine Yellow; Glucose Urine UA Negative (Negative); Ketones Urine Negative (Negative); Leukocyte Esterase Urine Trace (Negative); Nitrite Urine Negative (Negative); Protein Urine Negative (Negative); RBC Urine Automated 0-4 /hpf (0-4); Urobilinogen Urine Negative (Negative); pH Urine 6.5 (4.5-7.5)
--- NOTE | 2020-11-24 03:55 | History & Physical Report ---
Date of Service November 24, 2020 Assessment & Plan (1) Seizure-like activity: Plan: Mrs. Wang is an 80 yo woman who was brought to [facility] after witnessed seizure like activity. - etiology uncertain: this represents the second episode in the past 5 months of bodily shaking. Neuro consult from last visit suggestive conclusive syncope > seizure. However, syncopal episode thought to be unlikely, as patient was laying in bed at the time of onset. pacer interrogation ordered for cardiac rhythm assessment at the time of the episode. - Blood Glucose normal. Electrolytes WNL. No apparent infection. TSH suggestive of hypoactivity rather than hyperactivity. Head CT without acute changes. No obvious provoking factor for seizure. - patient was not loaded with Keppra - EEG ordered - neuro consult placed - may consider increasing gabapentin dose for seizure prevention - 1mg IV Ativan ordered prn for seizure - seizure precautions (2) Tremor: Plan: - continue home dose gabapentin 200mg BID (3) Paroxysmal atrial fibrillation: Plan: - continue Eliquis - rate controlled with diltiazem (4) HTN (hypertension): Plan: - continue losartan and diltiazem (5) Dyslipidemia: Plan: - continue home crestor DVT ppx: on Eliquis Diet: heart healthy Dispo: Med/Surg Code: Full, I discussed with patient History of Present Illness Primary Care Provider: Dago Lozada Jr, DO Mrs. Wang is an 80 yo woman who was brought to [facility] ED when her witnessed her entire body shaking in bed this evening. It is unknown how long the seizure like activity persisted. According to the ED provider, she was confused on arrival, consistent with an apparent post-ictal state. Of note, she was admitted to [facility] in 06/2020 for a similar presentation - her EEG was normal, and her brain MRI did not show any apparent causes of seizure activity. Neurology was consulted, who recommend against adding an anti- epileptic, as she was already taking gabapentin 200mg BID for a tremor. Neuorlogy felt as though her presentation was more consistent with convulsive syncope than a seizure. Today, Mrs. Wang denies losing continence of her bladder. She reported feeling in her usual state of health leading up to the episode. She does consume alcohol -one drink per night. In the ED, her vitals were WNL. Her BG was normal at 94. Her WBC was mildly low at 4.23. Hgb was normal. Na, Calcium and Mag levels were WNL. Kidney function normal. LFTs not elevated. Lipase not elevated. Trop undetectable. COVID 19 neg. UA not concerning for infection. TSH slightly elevated at 6.8. CXR showing no active disease. Head CT showing no acute changes. She was given 1mg IV Ativan and 1 liter of NSS. Allergies Allergy/AdvReac Type Severity Reaction Status Date / Time Sulfa (Sulfonamide Allergy Intermediate RASH Verified 08/22/20 10:48 Antibiotics) Home Medications Medication Instructions Recorded Confirmed Type cholecalciferol (vitamin D3) 125 5,000 units PO HS cap 01/06/19 08/22/20 History mcg (5,000 unit) capsule ketoconazole 2 % topical cream 1 appln TOPICAL BID PRN #1 gm 01/06/19 08/22/20 History losartan 25 mg tablet 25 mg PO QAM tab 01/06/19 08/22/20 History rosuvastatin 5 mg tablet 5 mg PO QAM tab 01/06/19 08/22/20 History fluocinonide 0.05 % topical cream 1 applic TOPICAL DIRECTED PRN 01/09/19 08/22/20 History gm ketoconazole 2 % shampoo 1 applic TOPICAL DIRECTED #1 ml 01/09/19 08/22/20 History diltiazem HCl 120 mg 120 mg PO QAM 02/17/19 08/22/20 History tablet,extended release 24 hr (Cardizem LA) gabapentin 100 mg capsule 200 mg PO BID #360 cap 02/19/20 08/22/20 History latanoprost 0.005 % eye drops 1 drp OPHTHALMIC (EYE) HS ml 02/19/20 08/22/20 History lifitegrast 5 % eye drops in a 1 drp OPHTHALMIC (EYE) HS PRN ea 02/19/20 08/22/20 History dropperette (Xiidra) vitamins A,C,O-hlwu-qogbvh 14,320 1 cap PO BID 06/24/20 08/22/20 History unit-226 mg-200 unit capsule (PreserVision AREDS) apixaban 5 mg tablet (Eliquis) 5 mg PO BID #180 tab 06/27/20 08/22/20 Rx Past Med/Surg History Medical History (Updated 11/25/20 @ 00:08 by Background Daiman) Appetite lost Avascular necrosis of bone of right hip Breast mass Degenerative joint disease of left hip Elevated TSH Onychomycosis Sick sinus syndrome Tinea pedis Tremor Vitamin B 12 deficiency Vitamin D deficiency Surgical History Breast enlargement History of bilateral hip replacements S/P appendectomy S/P cardiac pacemaker procedure S/P section S/P dilatation and curettage S/P hysterectomy with oophorectomy S/P tonsillectomy Status post tubal ligation Family History Mother Alzheimer disease Breast cancer Social History Smoking Status: Current every day smoker Tobacco Type: Cigarettes Cigarettes Per Day: 5; Hx Alcohol Use: Yes Alcohol type: wine and hard liquor Hx Substance Use: No Preferred Language: Telugu Communication Ability: Effective Color Sprayer Required: No Beliefs That Will Affect Care: None marital status: Current Living Situation: Spouse current occupational status: retired Feels Safe at Home: Yes Assistive Devices: Glasses Physical Exam Constitutional: WD/WN, vitals as above cooperative; no acute distress Eyes: + anicteric sclerae ENMT: external ear and nose normal, oropharynx normal + possible tongue laceration on left side Neck: trachea midline Respiratory: normal respiratory effort, lungs clear to auscultation no cough Cardiovascular: Rate/Rhythm: regular rate and regular rhythm Heart Sounds: normal S1 and normal S2 Chest (Breasts): Chest: + pacemaker (MRI compatible ) Gastrointestinal (Abdomen): normal bowel sounds, soft, nontender, no hepatosplenomegaly Musculoskeletal: Head/Neck/Chest: normocephalic and head atraumatic Skin: no rashes, warm and dry Psychiatric: A+Ox3, euthymic affect Results & Data Results & Data ([facility]) Vital Signs (Past 12 Hours) Vital Signs Temp Pulse Pulse Resp BP BP Pulse Ox 11/24/20 01:48 71 20 137/52 L 96 11/24/20 01:12 36.5 C 87 87 22 173/69 H 173/69 H 94 Supervising Physician Co-Signing Physician Notes Attending addendum: I have physically seen this patient, have supervised the medical residents activities, and agree with the H&P unless as otherwise noted. Assessment and Plan: Seizure-like activity- Second episode in past 5 months Previous neuro consult suggested convulsive syncope Order EEG Consult neurology Continue gabapentin that she is presently on for tremor, but could potentially be increased to help deal with seizure-like activity Tremor- Continue gabapentin 10 mg p.o. twice daily Paroxysmal atrial fibrillation/hypertension- Continue Eliquis, diltiazem and losartan Remaining orders and notations as noted Resident Activity Tracking Resident Involvement: Resident Care Provided Care Provided: Adult Hospital Medicine (1) HTN (hypertension) Hypertension type: essential hypertension Qualified Code(s): I10 - Essential (primary) hypertension
[2020-11-24] MEDS ORDERED: ONDANSETRON INJ 2 MG/ML 2 ML VIAL IV PRN (05:53)
[2020-11-24] MEDS ORDERED: LORazepam 1 MG/2 ML VIAL IV PRN (05:53)
[2020-11-24] MEDS ORDERED: ACETAMINOPHEN 325 MG TAB PO PRN (05:53)
--- NOTE | 2020-11-24 06:51 | XRay Report ---
XR chest 1V portable CLINICAL HISTORY: Seizure COMPARISON STUDY: Chest radiograph June 24, 2020. FINDINGS: Dual lead left subclavian pacemaker is in place. There are are calcified bilateral breast i mplants. Lung volumes are normal. Lungs are clear. There is no pneumothorax or pleural effusion. Card iac size is normal. Mediastinal contours are normal. There is no evidence for pulmonary edema. Elevat ion of the distal left clavicle is unchanged. IMPRESSION: No acute cardiopulmonary findings. No change in appearance of the chest. ACT 112: Negative or not required by law. Electronically signed by: Jaquan Espinoza M.D. 11/24/2020 6:49 AM
--- NOTE | 2020-11-24 06:57 | CT Scan Report ---
CT OF THE HEAD WITHOUT CONTRAST CLINICAL HISTORY: seizure, 1 hr post ictal, on blood thinner COMPARISON STUDY: Head CT and CTA of the head June 24, 2020. MRI of the brain June 25, 2020. CT DOSE: 1655.39 mGy.cm TECHNIQUE: Helical axial images of the head were obtained without IV contrast. Automated exposure con trol was utilized for the study. A dose lowering technique was utilized adhering to the principles o f ALARA. FINDINGS: No acute intracranial hemorrhage, midline shift or mass effect is present. The ventricular system is stable. Atrophy is again noted. This is unchanged. White matter hypodensities are unchanged and suggest small vessel disease. The basal cisterns are patent. No extra-axial collections are pres ent. There are no findings to suggest acute dural sinus thrombosis or acute territorial infarct. No s ignificant calvarial abnormalities are present. Visualized portions of the sinuses and mastoid air ce lls are clear. IMPRESSION: No acute intracranial findings. No change in appearance of the brain. ACT 112: Negative or not required by law. Electronically signed by: Jaquan Espinoza M.D. 11/24/2020 6:56 AM
[2020-11-24] MEDS ORDERED: APIXABAN 5 MG TABLET PO SCH (09:00)
[2020-11-24] MEDS ORDERED: ROSUVASTATIN CALCIUM 5 MG TAB PO SCH (09:00)
[2020-11-24] MEDS ORDERED: dilTIAZem HCL 120 MG CAPCR PO SCH (09:00)
[2020-11-24] MEDS ORDERED: LOSARTAN POTASSIUM 25 MG TAB PO SCH (09:00)
[2020-11-24] MEDS ORDERED: GABAPENTIN 100 MG CAP PO SCH (09:00)
--- NOTE | 2020-11-24 10:01 | Neurology Consultation ---
Date of Consultation November 24, 2020 Assessment & Plan (1) Seizure: This patient has had 2 nocturnal seizures, occurring during sleep, within the past 6 months. No obvious provoking factors for these events has been identified. Brain MRI completed this past June did reveal a left occipital developmental venous anomaly. DVA's are not typically associated with seizures, however. There does not appear to be an associated cavernoma or other potential epileptic focus on imaging. Her previous EEG was normal. At this point, as this patient has had 2 events, I would recommend starting treatment with an anticonvulsant. Given her history of anxiety, and nocturnal timing of her seizures, I would recommend starting with lamotrigine 25 mg at bedtime for the next 5 nights, then increase to 50 mg at bedtime thereafter. Further dosage increases will be made on an ongoing basis in the outpatient setting. If patient were to have additional convulsive episodes within the next few weeks, during lamotrigine up titration, would consider loading with Keppra. Follow-up with up-to-date EEG which should be completed later today. I do not think another brain MRI is necessary at this time. History of Present Illness Reason for Consultation: concern for seizures Requesting Physician: Trena Dial MD Attending Physician: Samuel Hernandez DO History of Present Illness The patient is an 80-year-old female who is known to me, I have been following her in neurology clinic for tremor, last seen in February 2019 for this issue. 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 She is prescribed gabapentin for her tremor and is indicated that this medication has been fairly helpful. Her PCP had previously been prescribing her Lexapro although she no longer takes this medication. She was hospitalized earlier this year, in June for a seizure-like episode and was seen in neurological consultation with Dr. Santillan at that time. The episode had apparently occurred while she was asleep and awoke her and was characterized by a vocalization/abnormal sound, and generalized shaking that lasted for about 2 minutes followed by postictal confusion that resolved within an hour. An EEG was unremarkable. A brain MRI revealed chronic small vessel ischemic change, a partially empty sella, and a left occipital developmental venous anomaly. I reviewed the images as well as the radiologist interpretation of this test. An anticonvulsant was not recommended for this first-ever seizure-like episode. The patient presented to the emergency department early this morning, at around 1 AM after another similar nocturnal seizure-like episode that awoke her from sleep. She exhibited generalized shaking that persisted for 2 to 3 minutes followed by prolonged period of postictal confusion. She has been doing some outdoor yard work for the past couple of days and may have been a little dehydrated. A CT of the head was negative for hemorrhage or acute process. She was given a 1 mg dose of IV lorazepam and admitted to the hospital for further evaluation and management. History also notable for paroxysmal atrial fibrillation for which she is taking Eliquis. Her gabapentin has been contin ued. An up-to-date EEG has been ordered. The patient does drink a moderate degree of alcohol, one mixed drink only in the late afternoon and has done so for many years. She denies use of otherwise excessive amounts of alcohol or binge drinking. Other than these 2 recent seizure-like episodes, no prior history of epilepsy or seizure disorder in this patient. No family history of epilepsy. She is currently feeling well, no headache, dizziness, vision disturbance, or focal weakness. She continues to endorse symptoms of an intermittent tremor, typically worse with anxiety, none at the moment. Allergies Allergy/AdvReac Type Severity Reaction Status Date / Time Sulfa (Sulfonamide Allergy Intermediate RASH Verified 08/22/20 10:48 Antibiotics) Home Medications Medication Instructions Recorded Confirmed Type cholecalciferol (vitamin D3) 125 5,000 units PO HS cap 01/06/19 08/22/20 History mcg (5,000 unit) capsule ketoconazole 2 % topical cream 1 appln TOPICAL BID PRN #1 gm 01/06/19 08/22/20 History losartan 25 mg tablet 25 mg PO QAM tab 01/06/19 08/22/20 History rosuvastatin 5 mg tablet 5 mg PO QAM tab 01/06/19 08/22/20 History fluocinonide 0.05 % topical cream 1 applic TOPICAL DIRECTED PRN 01/09/19 08/22/20 History gm ketoconazole 2 % shampoo 1 applic TOPICAL DIRECTED #1 ml 01/09/19 08/22/20 History diltiazem HCl 120 mg 120 mg PO QAM 02/17/19 08/22/20 History tablet,extended release 24 hr (Cardizem LA) gabapentin 100 mg capsule 200 mg PO BID #360 cap 02/19/20 08/22/20 History latanoprost 0.005 % eye drops 1 drp OPHTHALMIC (EYE) HS ml 02/19/20 08/22/20 History lifitegrast 5 % eye drops in a 1 drp OPHTHALMIC (EYE) HS PRN ea 02/19/20 08/22/20 History dropperette (Xiidra) vitamins A,C,Q-xhnq-barbtn 14,320 1 cap PO BID 06/24/20 08/22/20 History unit-226 mg-200 unit capsule (PreserVision AREDS) apixaban 5 mg tablet (Eliquis) 5 mg PO BID #180 tab 06/27/20 08/22/20 Rx Patient History Medical History Appetite lost Avascular necrosis of bone of right hip Breast mass Degenerative joint disease of left hip Elevated TSH Onychomycosis Sick sinus syndrome Tinea pedis Tremor Vitamin B 12 deficiency Vitamin D deficiency Surgical History Breast enlargement History of bilateral hip replacements S/P appendectomy S/P cardiac pacemaker procedure S/P section S/P dilatation and curettage S/P hysterectomy with oophorectomy S/P tonsillectomy Status post tubal ligation Family History Mother Alzheimer disease Breast cancer Social History Smoking Status: Current every day smoker Tobacco Type: Cigarettes Cigarettes Per Day: 5; Do You Dip or Chew Tobacco: No; Hx Alcohol Use: Yes Alcohol type: wine and hard liquor Hx Substance Use: No Preferred Language: Nigerien Communication Ability: Effective 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 Beliefs That Will Affect Care: None marital status: Current Living Situation: Spouse current occupational status: retired Other Information That Helps Us Care for You: No Feels Safe at Home: Yes Safety Concerns: Feels Safe At This Time Assistive Devices: Glasses Review of Systems Constitutional: no fever and no chills Eyes: no blind spots and no diplopia Ear, Nose, Mouth, Throat: no ear pain and no hearing loss Respiratory: no cough and no dyspnea Cardiovascular: no chest pain and no palpitations Gastrointestinal: no constipation and no diarrhea/loose stools Genitourinary: no urinary urgency and no urinary incontinence Musculoskeletal: no muscle weakness and no muscle atrophy Integumentary: no rash and no lesions Neurologic: as per Subjective / HPI Psychiatric: no behavioral changes, no depression, no abnormal sleep pattern and no anxiety Hematologic / Lymphatic: no easy bruising and no lymphadenopathy Exam (Neuro) Constitutional: well developed and well nourished; no acute distress Eyes: normal visual patiño by confrontation, PERRL, normal accommodation and EOM intact bilaterally; no fundoscopic abnormality, no nystagmus and no papilledema Cardiovascular: Vessels: normal carotid upstroke; no carotid bruit Neurologic: Oriented to:: Person, Place and Time Memory: Short Term Intact and Remote Intact Attention: Span Intact and Concentration Intact Language: Naming Objects and Repeating Phrases Speech Fluency: negative Dysarthria Speech Aphasia: negative Aphasia Fund of Knowledge: Current Events, Past History and Vocabulary Cranial Nerves: Normal II (Visual patiño full to confrontation, visual acuity normal), III, IV, (Pupils equal round reactive to light and accommodation, eye movements normal), V (Facial sensation intact), VII (There is no facial droop or weakness), VIII (Hearing intact), IX, X (Palate elevates to midline), XI (Shoulder shrug intact) and XII (Tongue protrudes to midline) Motor Strength: Normal Lower Extremities and Normal Upper Extremities; negative Pronator Drift Motor Tone: Normal Lower Extremities and Normal Upper Extremities Muscle Bulk/Involuntary Movements: No Involuntary Movements; negative Muscle Atrophy Sensation: Light Touch Intact, Pain/Temperature Intact, Vibration Intact and Proprioception Intact Coordination: Normal; negative Limited Balance, Dysdiadochokinesia, Finger-Nose Abnormal or Heel-Low Abnormal Deep Tendon Reflexes: Rt Triceps: 2+, Lt Triceps: 2+, Rt Biceps: 2+, Lt Biceps: 2+, Rt Brachioradialis: 2+, Lt Brachioradialis: 2+, Rt Patellar: 2+, Lt Patellar: 2+, Rt Ankle: 2+ and Lt Ankle: 2+ Special Tests: negative Babinski Present Gait: Normal Station and Gait Results & Data ([facility]) Vital Signs (Past 12 Hours) Vital Signs Temp Pulse Pulse Pulse Pulse Pulse Resp 11/24/20 07:30 36.6 C 60 18 08/05/21 06:02 36.6 C 69 69 16 11/24/20 05:35 36.6 C 68 16 11/24/20 05:18 60 16 11/24/20 04:00 60 16 11/24/20 01:48 71 20 11/24/20 01:12 36.5 C 87 87 22 BP BP BP Pulse Ox 11/24/20 07:30 146/75 H 96 11/24/20 06:02 161/69 H 96 11/24/20 05:35 161/69 H 98 11/24/20 05:18 150/82 H 99 11/24/20 04:00 149/85 H 96 11/24/20 01:48 137/52 L 96 11/24/20 01:12 173/69 H 173/69 H 94 Laboratory Results WBC 4.23, hemoglobin 12.3, hematocrit 36.8, platelet count 255, sodium 137, potassium 3.7, BUN 11, creatinine 0.75, glucose 94, calcium 8.7, magnesium 2.2, AST 18, ALT 23, total CK 46, troponin less than 0.015, TSH 6.[address] of the head negative for hemorrhage or acute process. There are changes suggestive of chronic small vessel ischemic disease. I reviewed the images as well as the radiologist's interpretation of this test and agree. Brain MRI completed June 25, 2020 revealed chronic small vessel ischemic change, partially empty sella, and a left occipital developmental venous anomaly. I reviewed the images as well as the radiologist's interpretation of this test and agree. CT angiography of the head and neck completed June 24, 2020 revealed moderate atheromatous plaque of the carotid bulbs and proximal cervical segments of the internal carotid arteries resulting in less than 50% stenosis bilaterally. Electrocardiogram reveals an atrial paced rhythm with prolonged AV conduction, 68 bpm. An EEG completed June 25, 2020 revealed a normal background alpha rhythm, no epileptiform abnormalities. Coding Level of Care Code 00113 Initial Inpt Care Lvl 3 Diagnoses Seizure R56.9
--- NOTE | 2020-11-24 13:16 | Electroencephalogram ---
EEG Procedure Note Date of Service November 24, 2020 Start / End Times Start Time: 11:48 AM End Time: 12:08 AM Referring Physician Trena Dial MD History Nocturnal seizures x2 Home Medication List Medication Instructions Recorded Confirmed Type cholecalciferol (vitamin D3) 125 5,000 units PO HS cap 01/06/19 08/22/20 History mcg (5,000 unit) capsule ketoconazole 2 % topical cream 1 appln TOPICAL BID PRN #1 gm 01/06/19 08/22/20 History losartan 25 mg tablet 25 mg PO QAM tab 01/06/19 08/22/20 History rosuvastatin 5 mg tablet 5 mg PO QAM tab 01/06/19 08/22/20 History fluocinonide 0.05 % topical cream 1 applic TOPICAL DIRECTED PRN 01/09/19 08/22/20 History gm ketoconazole 2 % shampoo 1 applic TOPICAL DIRECTED #1 ml 01/09/19 08/22/20 History diltiazem HCl 120 mg 120 mg PO QAM 02/17/19 08/22/20 History tablet,extended release 24 hr (Cardizem LA) gabapentin 100 mg capsule 200 mg PO BID #360 cap 02/19/20 08/22/20 History latanoprost 0.005 % eye drops 1 drp OPHTHALMIC (EYE) HS ml 02/19/20 08/22/20 History lifitegrast 5 % eye drops in a 1 drp OPHTHALMIC (EYE) HS PRN ea 02/19/20 08/22/20 History dropperette (Xiidra) vitamins A,C,B-pmmr-mkcwgo 14,320 1 cap PO BID 06/24/20 08/22/20 History unit-226 mg-200 unit capsule (PreserVision AREDS) apixaban 5 mg tablet (Eliquis) 5 mg PO BID #180 tab 06/27/20 08/22/20 Rx Inpatient Medication List Apixaban (Apixaban 5 Mg Tablet) 5 mg PO BID [facility]ABLO Stop: 12/24/20 08:59 Last Admin: 11/24/20 09:40 Dose: 5 mg Documented by: [id number] Diltiazem HCl (Diltiazem Hcl 120 Mg Capcr) 120 mg PO QAM [facility]ABLO Stop: 12/24/20 08:59 Last Admin: 11/24/20 09:40 Dose: 120 mg Documented by: [id number] Gabapentin (Gabapentin 100 Mg Cap) 200 mg PO BID [facility] Stop: 12/24/20 08:59 Last Admin: 11/24/20 09:40 Dose: 200 mg Documented by: [id number] Losartan Potassium (Losartan Potassium 25 Mg Tab) 25 mg PO QAM [facility] Stop: 12/24/20 08:59 Last Admin: 11/24/20 09:40 Dose: 25 mg Documented by: [id number] Rosuvastatin Calcium (Rosuvastatin Calcium 5 Mg Tab) 5 mg PO QAM [facility] Stop: 12/24/20 08:59 Last Admin: 11/24/20 09:40 Dose: 5 mg Documented by: [id number] Discontinued Medications Lorazepam (Ativan) 1 mg in 2 mls @ 2 mls/min IV NOW STA Stop: 11/24/20 01:04 Last Admin: 11/24/20 01:25 Dose: 2 mls/min Documented by: [id number] Sodium Chloride (Nss) 500 mls @ 999 mls/hr IV .Q31M ONE Stop: 11/24/20 01:33 Last Infusion: 11/24/20 06:08 Dose: 0 mls/hr Documented by: [id number] Admin: 11/24/20 01:25 Dose: 999 mls/hr Documented by: [id number] Description This is a 21 electrode EEG with a single channel dedicated to limited EKG. The electrodes were placed in accordance with the International 10-20 system. There is a posterior dominant rhythm of 10 Hz which is symmetrically distributed and attenuates with eye opening. There is a normal anterior to posterior organization. Photic stimulation is unremarkable. Hyperventilation is not performed. There is a symmetric frontal beta rhythm. There is admixed generalized polymorphic theta activity seen throughout the majority of the study. There are a few vertex waves in the latter part of the study. There is a minimal degree of symmetric frontal delta slowing as well. There are no paroxysmal or epileptiform abnormalities. Interpretation Normal-appearing awake/sleepy EEG. A normal EEG does not completely exclude a diagnosis of epilepsy. Further clinical correlation may be needed. [facility] EEG Procedure Codes Indication for Procedure (1) Seizure: Neurology Neurology: 43365 EEG include record awake & sleepy
--- NOTE | 2020-11-24 13:51 | Discharge Summary ---
Date of Service November 24, 2020 Admission HPI Per Admitting Provider Mrs. Wang is an 80 yo woman who was brought to [facility] ED when her witnessed her entire body shaking in bed this evening. It is unknown how long the seizure like activity persisted. According to the ED provider, she was confused on arrival, consistent with an apparent post-ictal state. Of note, she was admitted to [facility] in 06/2020 for a similar presentation - her EEG was normal, and her brain MRI did not show any apparent causes of seizure activity. Neurology was consulted, who recommend against adding an anti- epileptic, as she was already taking gabapentin 200mg BID for a tremor. Neuorlogy felt as though her presentation was more consistent with convulsive syncope than a seizure. Today, Mrs. Wang denies losing continence of her bladder. She reported feeling in her usual state of health leading up to the episode. She does consume alcohol -one drink per night. In the ED, her vitals were WNL. Her BG was normal at 94. Her WBC was mildly low at 4.23. Hgb was normal. Na, Calcium and Mag levels were WNL. Kidney function normal. LFTs not elevated. Lipase not elevated. Trop undetectable. COVID 19 neg. UA not concerning for infection. TSH slightly elevated at 6.8. CXR showing no active disease. Head CT showing no acute changes. She was given 1mg IV Ativan and 1 liter of NSS. Admission Exam Per Admitting Provider Constitutional: Thin elderly female in no apparent distress, laying comfortably in bed, somewhat drowsy Eyes: EOMI, pupils equal and reactive bilaterally, no scleral icterus Cardiac: Paced regular rhythm and rate, no murmurs, gallops or rubs. Normal S1, S2 Pulm: CTA BL, no wheezes, rhonchi, crackles or rubs, moving air well throughout both lungs Abd: soft, nontender, nondistended, normal bowel sounds, no rebound or guarding Extremities: 2+ peripheral pulses, no edema Neuro: no focal deficits, no facial drooping, moving all 4 limbs, A&Ox3, sensation equal and intact Principal Diagnosis Convulsive syncope Discharge Exam Constitutional WD/WN, vitals as above cooperative; no acute distress Eyes + anicteric sclerae Neck trachea midline Respiratory normal respiratory effort, lungs clear to auscultation no cough Cardiovascular Rate/Rhythm: regular rate and regular rhythm Heart Sounds: normal S1 and normal S2 Pacemaker Chest (Breasts) Chest: + pacemaker (MRI compatible ) Gastrointestinal (Abdomen) normal bowel sounds, soft, nontender, no hepatosplenomegaly Musculoskeletal Head/Neck/Chest: normocephalic and head atraumatic Skin no rashes, warm and dry Neurologic normal touch/pain/proprioception, CN's II-XI intact bilaterally and deep tendon reflexes 2+ bilaterally; no focal motor deficits Speech / Cognition: normal speech and normal cognition Motor/Sensory: no tremor (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 Head CT negative -Neurology consulted- stated more likely to be convulsive syncope than seizure like with previous hospitalization for similar symptoms few months ago. EEG did not demonstrate epileptiform activity -Pt did not receive anticonvulsants on floor nor did she experience further seizure-like activity, did not require further Ativan beyond single dose in ED -Despite post-ictal state, tonic-clonic movements with similar occurrence few months ago, in light of benign EEG this is less likely to be a primary seizure disorder. Clinical history revealed pt had been considerably dehydrated over past 2 days and overexerted herself in regard to physical activity, all while experiencing increased life stressors. Patient's symptoms more likely attributable to pre-syncope, with vasovagal contribution from dehydration and stress -Pt remained stable without any neurologic deficits and was safe for discharge home without any initiation of anticonvulsant medication. (2) Tremor: - Continued home dose gabapentin 200mg BID (3) Paroxysmal atrial fibrillation: - Continued Eliquis - Rate controlled with home diltiazem (4) HTN (hypertension): - Continued home losartan and diltiazem (5) Dyslipidemia: - Continue home statin Total Time Total Time Spent Total Time Spent (In Minutes): >30 Discharge Plan Discharge Items Patient Disposition: Home - Self-Care Reason For Visit: SEIZURE Discharge Diagnosis: Convulsive syncope Activity: Per Instructions section Non-emergency contact: Primary Care Provider Call non-emergency contact if: you have any medication questions and your symptoms worsen Follow-up/Referrals: Dago Lozada Jr, DO [Primary Care Provider] - 11/29/20 9:45 am Diet: Regular Addtl Attending Provider Instructions: You were admitted to the hospital for convulsive syncope. Convulsive syncope -You experienced a seizure-like episode with altered consciousness, which we evaluated more thoroughly to determine if it was a true seizure or syncope, which is commonly known as fainting. Your symptoms were treated with medication to halt any potential remaining seizure activity. Our workup included brain imaging to search for any injury to your brain or alterations in the electrical activity of your brain, which was revealed to be negative just like for your similar hospitalization months ago. You were also seen by the neurology team, who did not think you experienced a seizure. Your symptoms were concluded to be due to convulsive syncope, which can mimic seizure. Your syncope was caused by a combination of factors, mainly your dehydration from working in the garden the past 2 days in hot weather as well as general increased stress from your impending move. It is important you stay hydrated and avoid overexerting yourself to avoid future incidents of syncope. Should you feel lightheaded or dizzy, it would be best to momentarily relax, take a break and drink some water. These symptoms will usually resolve on their own and do not cause any long-term consequences. A discharge summary will be sent to your primary care physician to ensure continuity of care. Please bring this discharge summary with you to your next office appointment so that your provider can review it at that time. Follow-up appointments: Make a follow-up appointment with your PCP within the next week. It is very important that you follow up with them shortly after discharge from the hospital. You should also follow up with your neurologist for further evaluation of this event. Medications: Your medication list has been reviewed and reconciled upon discharge to ensure accuracy and continuity of care. An updated list of all your medications is included with your hospital discharge paperwork. Please review this list closely, and make note of any changes. Take your medications as instructed; do not skip a dose of your medicines. Make sure all of your doctors know every medicine you are taking (including apmy-nnn-lasvtuk medicines, vitamins, and supplements). Call your primary care provider before taking any new medicines (including kvvu-nzl-wcgozgg medicines, vitamins, and supplements), because some of these may interact with your current medications, or may make your symptoms worse. Tell your primary care provider if you cannot afford your medications. CONTACT YOUR PRIMARY CARE PROVIDER if you experience any of the following: Lightheadedness Dizziness Loss of consciousness Shaking Disorientation Memory loss Difficulty following your treatment plan, or difficulty taking medications CALL 911 OR GO TO THE EMERGENCY DEPARTMENT if you experience any of the following: Sudden, severe abdominal pain or nausea/vomiting Severe chest pain, or chest pain that radiates (moves) to your jaw or arm Sudden, severe shortness of breath or difficulty breathing Thank you for allowing us to participate in your care. Pending Studies at Discharge: No Stand-Alone Forms: [facility] Contapps, Smoking Cessation Medications and DC Order Prescriptions: Continued Eliquis 5 mg tablet 5 mg PO BID Qty: 180 RF: 3 latanoprost 0.005 % drops 1 drp ophthalmic (eye) HS RF: 0 Xiidra 5 % dropperette 1 drp ophthalmic (eye) HS PRN (Reason: Dry Eyes) RF: 0 fluocinonide 0.05 % cream 1 applic topical DIRECTED PRN (Reason: Skin Irritation) RF: 0 ketoconazole 2 % shampoo 1 applic topical DIRECTED Qty: 1 RF: 0 Cardizem LA 120 mg tablet extended release 24 hr 120 mg PO QAM RF: 0 losartan 25 mg tablet 25 mg PO QAM RF: 0 cholecalciferol (vitamin D3) 5,000 unit capsule 5,000 units PO HS RF: 0 ketoconazole 2 % cream 1 appln topical BID PRN (Reason: .) Qty: 1 RF: 0 rosuvastatin 5 mg tablet 5 mg PO QAM RF: 0 gabapentin 100 mg capsule 200 mg PO BID Qty: 360 RF: 0 PreserVision AREDS [id number],[id number] ufdz-on-[id number] Capsule 1 cap PO BID RF: 0 Discharge Orders: Discharge Order (Routine); Ordered 11/24/20 Ordered By: Mikhail Claros/Other Patient Handouts: ED Seizure New Onset Unknown ... Admission Data Admit Date/Time: 11/24/20 03:39 Attending Provider: Samuel Hernandez Admit Provider: Trena Dial Primary Care Provider: Dago Lozada Jr Other Providers: Jurgen Enrique ; Gregg Weems Other Interventions: Discharge Summary Assessment (RN) Last Done: 11/24/20 14:45 Supervising Physician Co-Signing Physician Notes I personally examined the patient and verified all boyle points of history and exam, discussed case, and agree with decision making with Dr Mazariegos. Feeling better and wants to go home. Discussed her event. She notes that the whole time she was shaking she was actually fully conscious and aware. Vitals noted, in general she is awake and alert pleasant no distress. HEENT normocephalic atraumatic mucous membranes moist. Breathing unlabored no accessory muscle use good effort. Skin shows no rashes no pallor or icterus. Neuro without focal deficits. Convulsive episodeconvulsive syncope versus seizurediscussed with patient the differential is really still both, and there are certainly some evidence towards convulsive syncope and some towards seizure. After discussion of risks and benefits of approaches of treating empirically for seizure and close follow-up versus holding off on anticonvulsants and close follow-up, and the risks and benefits of both, she opts to not start anticonvulsants at this time. Discussed staying hydrated and stress management. Stable for homeclose PCP and neuro follow-up for ongoing elucidation of this process. Otherwise as above. Resident Activity Tracking Resident Involvement: Resident Care Provided Care Provided: Adult Hospital Medicine
--- NOTE | 2020-11-24 18:16 | Billing Data ---
Date of Service November 24, 2020 Coding Level of Care Code 91773 OBS Care - Discharge
--- NOTE | 2020-11-25 02:12 | Billing Data ---
Date of Service November 25, 2020 Coding Level of Care Code INT OBSERVATION CARE 70M LVL 3
--- NOTE | 2020-11-25 18:31 | Electrocardiogram Report ---
Test Reason : Blood Pressure : / mmHG Vent. Rate : 068 BPM Atrial Rate : 068 BPM P-R Int : 222 ms QRS Dur : 084 ms QT Int : 396 ms P-R-T Axes : 032 010 051 degrees QTc Int : 421 ms Atrial-paced rhythm with prolonged AV conduction Septal infarct (cited on or before 23-JUN-2020) Abnormal ECG When compared with ECG of 23-JUN-2020 23:52, No significant change was found Confirmed by Alexis Magana ([id number]) on 11/25/2020 6:30:53 PM Referred By: REFERRED SELF Confirmed By:Alexis Magana
== END 2020-11-24 15:46 | disposition home or self-care (01) ==
LOC: ED 00:56 → 3N 00:56 → SUATTDRO 03:39 → 3N 05:18

== ENCOUNTER 2023-08-23 07:18 | Observation (INO) ==
--- NOTE | 2023-08-01 13:10 | PAT Medication Instructions ---
Medication Instructions Date of Service August 01, 2023 Home Medications Medication Instructions Recorded ketoconazole 2 % shampoo 1 applic topical Q14D #120 mL 08/06/22 omeprazole 20 mg capsule,delayed 20 mg PO DAILY PRN gastric reflux 11/16/22 release #90 caps apixaban 2.5 mg tablet 2.5 mg PO BID #180 tabs 04/02/23 rosuvastatin 5 mg tablet 5 mg PO QAM #90 tabs 04/09/23 tramadol 50 mg tablet 50 mg PO BID PRN pain #60 tabs 06/20/23 gabapentin 400 mg capsule 400 mg PO BID #180 caps 07/07/23 losartan 25 mg tablet 25 mg PO BID #180 tabs 07/15/23 cholecalciferol (vitamin D3) 125 mcg (5,000 unit) capsule 5,000 units PO HS ketoconazole 2 % topical cream 1 appln topical BID PRN dry scalp lifitegrast 5 % eye drops in a dropperette (Xiidra) 1 drp ophthalmic (eye) HS PRN Dry Eyes vitamins A,C,H-bcps-jycoix 4,296 mcg-226 mg-90 mg capsule (PreserVision AREDS) 1 cap PO BID ketoconazole 2 % shampoo 1 applic topical Q14D betamethasone dipropionate 0.05 % topical cream 1 applic topical BID PRN Skin Irritation fluocinonide 0.05 % topical cream 1 applic topical UD PRN Skin Irritation omeprazole 20 mg capsule,delayed release 20 mg PO DAILY PRN gastric reflux tavaborole 5 % topical solution with applicator 1 applic topical DAILY PRN toenail fungus apixaban 2.5 mg tablet 2.5 mg PO BID rosuvastatin 5 mg tablet 5 mg PO QAM tramadol 50 mg tablet 50 mg PO BID PRN pain gabapentin 400 mg capsule 400 mg PO BID losartan 25 mg tablet 25 mg PO BID diltiazem HCl 120 mg capsule,extended release 24 hr 120 mg PO QAM lorazepam 0.5 mg tablet (Ativan) 0.5 mg PO DAILY PRN Anxiety sertraline 50 mg tablet 50 mg PO QAM Continue as directed omeprazole 20 mg capsule,delayed release 20 mg PO DAILY PRN gastric reflux (if needed) ASK your prescriber and surgeon apixaban 2.5 mg tablet 2.5 mg PO BID (in order to get spinal anesthesia- will need to hold Eliquis/apixaban at least 72 hours prior to surgery) STOP taking 2 weeks before surgery vitamins A,C,J-ciii-swiexn 4,296 mcg-226 mg-90 mg capsule (PreserVision AREDS) 1 cap PO BID STOP taking 24 hours before surgery ketoconazole 2 % topical cream 1 appln topical BID PRN dry scalp ketoconazole 2 % shampoo 1 applic topical Q14D betamethasone dipropionate 0.05 % topical cream 1 applic topical BID PRN Skin Irritation fluocinonide 0.05 % topical cream 1 applic topical UD PRN Skin Irritation tavaborole 5 % topical solution with applicator 1 applic topical DAILY PRN toenail fungus DO NOT take the morning of surgery losartan 25 mg tablet 25 mg PO BID Take morning of surgery With a small sip of water, OTHERWISE NOTHING TO EAT OR DRINK AFTER MIDNIGHT: rosuvastatin 5 mg tablet 5 mg PO QAM tramadol 50 mg tablet 50 mg PO BID PRN pain (if needed) gabapentin 400 mg capsule 400 mg PO BID diltiazem HCl 120 mg capsule,extended release 24 hr 120 mg PO QAM lorazepam 0.5 mg tablet (Ativan) 0.5 mg PO DAILY PRN Anxiety (if needed) sertraline 50 mg tablet 50 mg PO QAM Take evening before surgery cholecalciferol (vitamin D3) 125 mcg (5,000 unit) capsule 5,000 units PO HS lifitegrast 5 % eye drops in a dropperette (Xiidra) 1 drp ophthalmic (eye) HS PRN Dry Eyes (if needed) tramadol 50 mg tablet 50 mg PO BID PRN pain (if needed) gabapentin 400 mg capsule 400 mg PO BID losartan 25 mg tablet 25 mg PO BID lorazepam 0.5 mg tablet (Ativan) 0.5 mg PO DAILY PRN Anxiety (if needed) Other Notes If you have any questions please call us at [phone] or [phone] or [phone] or [phone]
--- NOTE | 2023-08-08 11:25 | Anesthesiology Consultation ---
Date of Service August 08, 2023 Assessment & Plan (1) Encounter for pre-operative examination: - cardiology office visit 03/27/23 [place]: "...Paroxysmal Atrial Fibrillation (Apixiban/Diltiazem) incidentally noted at the time of the stress test 2009, [id number] Mitral Regurgitation, Hypertension, Dyslipidemia, Subclinical Hypothyroidism, Cerebrovascular Disease, and Sick Sinus Syndrome s/p Dual- Chamber Pacemaker s/p Generator Change-out 08/30/22 who presents for today for her 6 month follow-up in our Device Clinic...Medtronic Madisyn XT DR STEWART Dual Chamber Pacemaker...According to her device interrogation today she has had 3 episodes of A-Fib -- 1 out of 3 was successfully treated with atrial therapies. Patient has not experienced any angina pectoris or anginal equivalent symptoms, overt signs or symptoms of heart failure, nor has she had any symptoms suggestive of stroke or mini stroke...We interrogated her dual chamber pacemaker today, it is functioning appropriately. Estimated battery life 14 years, pacing from the right atrium 40% of the time, pacing from the right ventricle 0% of the time. Three episodes of atrial fibrillation since it was last interrogated, 1 was successfully treated with atrial therapies...brief episodes of nonsustained V-tach which were asymptomatic. No changes were made to her device settings...Follow up in 1 year..." - Outpatient joint assessment: Patient is currently scheduled for inpatient pathway. If re-evaluated and patient/surgeon requests outpatient pathway, patient is not recommended candidate for outpatient joint program from anesthesia standpoint. Chart Review Chart Review: Acceptable Risk for Surgery and Patient seen in Pre Admission Testing Teaching & Discussion Pre-Anesthesia Teaching/Discussion Notes: Instructed NPO after midnight before surgery, except medications with 15 cc of water. Medication instructions provided according to the PAT guidelines. History Surgery Operation Date: 08/23/23 10:40 Proposed Procedures p Right Total Knee Arthroplasty - Juan Hart MD Height/Weight Height: 5 ft 5 in Weight: 59.9 kg Allergies Allergy/AdvReac Type Severity Reaction Status Date / Time Sulfa (Sulfonamide Allergy Intermediate RASH Verified 07/26/23 08:32 Antibiotics) Medications Home Medications Medication Instructions Recorded Confirmed Last Taken cholecalciferol (vitamin D3) 125 5,000 units PO HS 09/17/19 04/05/24 04/16/21 mcg (5,000 unit) capsule ketoconazole 2 % topical cream 1 appln topical BID PRN dry scalp 01/06/19 07/26/23 06/23/20 #1 g lifitegrast 5 % eye drops in a 1 drp ophthalmic (eye) HS PRN Dry 02/19/20 07/26/23 08/05/20 dropperette (Xiidra) Eyes vitamins A,C,U-umlw-pwgagv 4,296 1 cap PO BID 06/24/20 07/26/23 08/06/20 mcg-226 mg-90 mg capsule (PreserVision AREDS) ketoconazole 2 % shampoo 1 applic topical Q14D #120 mL 08/06/22 07/26/23 Unknown betamethasone dipropionate 0.05 % 1 applic topical BID PRN Skin 09/27/22 07/26/23 Unknown topical cream Irritation fluocinonide 0.05 % topical cream 1 applic topical UD PRN Skin 09/27/22 07/26/23 Unknown Irritation omeprazole 20 mg capsule,delayed 20 mg PO DAILY PRN gastric reflux 11/16/22 07/26/23 Unknown release #90 caps tavaborole 5 % topical solution 1 applic topical DAILY PRN toenail 02/11/23 07/26/23 Unknown with applicator fungus apixaban 2.5 mg tablet 2.5 mg PO BID #180 tabs 04/02/23 07/26/23 Unknown rosuvastatin 5 mg tablet 5 mg PO QAM #90 tabs 04/09/23 07/26/23 Unknown tramadol 50 mg tablet 50 mg PO BID PRN pain #60 tabs 06/20/23 07/26/23 Unknown gabapentin 400 mg capsule 400 mg PO BID #180 caps 07/07/23 07/26/23 Unknown losartan 25 mg tablet 25 mg PO BID #180 tabs 07/15/23 07/26/23 Unknown diltiazem HCl 120 mg 120 mg PO QAM 07/26/23 07/26/23 Unknown capsule,extended release 24 hr lorazepam 0.5 mg tablet (Ativan) 0.5 mg PO DAILY PRN Anxiety 07/26/23 07/26/23 Unknown sertraline 50 mg tablet 50 mg PO QAM 07/26/23 07/26/23 Unknown Past Medical History Medical History (Updated 08/09/23 @ 08:50 by Jossy Mcgill PA-C) Breast mass right-cyst yrs ago; s/p excision Cervical facet joint syndrome resolved per pt and Cervicalgia resolved per pt and Chronic anticoagulation GERD (gastroesophageal reflux disease) controlled, stable per pt History of blood transfusion during delivery in 1950s with placenta previa History of seizures 05/2019 and 07/2022, "had multiple tests and no findings on MRI"-denies additional seizures HTN (hypertension) controlled, stable per pt Moderate to severe mitral regurgitation Pacemaker Medtronic, follows with [place] [facility] Paroxysmal atrial fibrillation Sick sinus syndrome Subclinical hypothyroidism Tobacco use 5 cigs/day Tremor hands-when anxious-stable per pt and Patient denies h/o stroke, heart attack, heart failure, DM, or blood clots/DVTs. Exercise / Class Metabolic Activity III < 4 Walking/Shop/Light housework (denies chest discomfort or shortness of breath with usual activities) Past Family History Family History Mother Alzheimer disease Breast cancer Hypertension Anxiety Father Anxiety Brother Anxiety Throat cancer Uncle Colorectal cancer Denies family history of Ovarian cancer Prostate cancer Myocardial infarction Past Surgical History Surgical History H/O hand surgery tendon transfer right hand H/O melanoma excision right leg History of bilateral hip replacements History of esophagogastroduodenoscopy (EGD) Hx of breast augmentation age 33 Hx of colonoscopy Hx of squamous cell carcinoma excision left shoulder S/P appendectomy S/P cardiac pacemaker procedure age 73, [facility]; f/u dr. gongora S/P section x2 S/P dilatation and curettage S/P hysterectomy with oophorectomy S/P tonsillectomy Status post surgical removal of malignant neoplasm of skin Basal cell & squamous cell Status post tubal ligation Past Anesthesia History No Hx of Anesthesia Complications and No Family Hx of Anesthesia Complications History of PONV No Hx of PONV and No Hx of Motion Sickness Social History Smoking Status: Current every day smoker (-advised) tobacco type: cigarettes Smoking cigarettes per day: 5 Do You Dip or Chew Tobacco: No Hx Alcohol Use: Yes Alcohol type: hard liquor alcohol intake frequency: 0-2 drinks per day Hx Substance Use: No substance use type: does not use Review of Systems Patient denies chest pain, shortness of breath, dyspnea on exertion, snoring, witnessed apneas, fever, chills, cough, wheezing, or palpitations. Physical Exam Vital Signs Vitals BP 122/71 P 83 TEMP 97.9 SP02 97% on RA RESP 18 Physical Patient resting comfortably in chair in no acute distress, alert and oriented, responding appropriately throughout visit Full cervical extension range of motion without pain TMD 3.5 finger breadths Mallampati Score 2 Dentition: several crowns; denies chipped or loose teeth, implants or bridges Lungs: normal respiratory effort. Good air movement, clear throughout to auscultation, no adventitious breath sounds Cardiac: regular rate and rhythm, no murmurs noted Carotid arteries: negative bruit bilat Lab Results Anesthesia Preop Results Results Anesthesia Widget: WBC 4.68 K/ul (4.8-10.8) L 08/08/23 Hgb 12.1 g/dl (12.0-16.0) 08/08/23 Hct 37.0 % (37.0-47.0) 08/08/23 Plt 244 K/uL (130-400) 08/08/23 Na 135 mmol/L (136-145) L 08/08/23 K 4.3 mmol/L (3.5-5.1) 08/08/23 Cl 101 mmol/L (98-107) 08/08/23 CO2 28 mmol/L (21-32) 08/08/23 BUN 12 mg/dl (6-23) 08/08/23 Creat 0.69 mg/dl (0.6-1.2) 08/08/23 Glucose Level 81 mg/dl (70-99(Fasting)) 08/08/23 PT 10.4 Seconds (9.0-12.0) 08/08/23 PTT 33 Seconds (21-31) H 08/08/23 INR 0.9 (0.9-1.1) 08/08/23 Blood Type O Positive 08/08/23 Antibody Screen NEGATIVE 08/08/23 Testing Electrocardiogram Date: 08/08/23 Atrial paced rhythm with prolonged AV conduction, rate 77 bpm Chest X-Ray Date: 08/08/23 Cardiomegaly and cardiac pacemaker without radiographic evidence of congestive failure. No airspace consolidation or pleural effusion is identified. Echocardiogram Date: 07/12/20 EF 55-60% No LV regional wall motion abnormalities Compared with 02/03/2018 study, valvular regurgitation appeared slightly less severe (may be related to loading conditions or imaging technique), otherwise no significant change. Grade I diastolic dysfunction No hemodynamically significant aortic valvular stenosis Mild aortic regurgitation Moderate mitral regurgitation Mild tricuspid regurgitation Mildly dilated LA Cervical Spine Date: 12/28/22 1. No fracture or subluxation within the cervical spine. 2. Degenerative changes as described above most pronounced within the facets. Other Testing Pacemaker report 06/19/23 Medtronic AP 39% COMIC BOOK WRITER 0.2% Mode: AAIR-DDDR Chest CT 04/16/23 1. Acute nondisplaced fracture of the posterolateral right 10th rib. No pneumothorax. Trace right pleural effusion which could reflect a tiny hemothorax given the rib fracture. No additional acute traumatic findings within the chest on unenhanced exam. 2. Scattered tree-in-bud nodules within the lungs which favor an infectious process. No pulmonary contusion.
--- NOTE | 2023-08-17 08:22 | History & Physical Report ---
Date of Service August 17, 2023 Assessment & Plan (1) Degenerative arthritis of knee, bilateral: 83-year-old female with a history of paroxysmal atrial fibrillation along with multiple other medical issues with advanced bilateral knee DJD. She has failed conservative treatment. She is having trouble getting around and would like to proceed with surgical intervention. Plan: Srinivas taken to the operating room and do a right knee replacement. The risks Mente this procedure explained the patient clued but not limited to DVT PE infection neurological and vascular bleeding palm pain limb range of motion test is fairly her symptoms incomplete relief of symptoms excetra. Patient understands and desires to proceed. Informed consent was obtained. She knows to hold her Eliquis 3 days preop. She is planned to be discharged home with home health program. Her will assist in her postoperative care. I will likely have [facility] assist in her recovery and rehab. Will begin her back on Eliquis 24 hours postoperatively prophylactic dose which she is on already. (2) Pacemaker: (3) Venous insufficiency: (4) Paroxysmal atrial fibrillation: History of Present Illness Chief Complaint: . Bilateral knee pain. Primary Care Provider: Alice Lomax MD . Patient is an 83-year-old female who presents for follow-up and treatment of her knees. She is well-known to me from previous a hip replacement right 1 done 6 years ago and the left one done 9 years ago. The hip is done well. She has been continue to be bothered by knee pain over the past several years. She has been through extensive conservative treatment over the past several years with injections which have become less successful over time. She is resorted to using a cane to get around. Both knees hurt. Right knee bothers her a little bit more than the left. 6 she like to proceed with knee replacement surgery. Of note, she has undergone some relatively recent vein interventions for varicose veins. She does have a history of venous insufficiency. No history of infections in the legs. Allergies Allergy/AdvReac Type Severity Reaction Status Date / Time Sulfa (Sulfonamide Allergy Intermediate RASH Verified 07/26/23 08:32 Antibiotics) Home Medications Medication Instructions Recorded Confirmed Type cholecalciferol (vitamin D3) 125 5,000 units PO HS 01/06/19 07/26/23 History mcg (5,000 unit) capsule ketoconazole 2 % topical cream 1 appln topical BID PRN dry scalp 01/06/19 07/26/23 History #1 g lifitegrast 5 % eye drops in a 1 drp ophthalmic (eye) HS PRN Dry 02/19/20 07/26/23 History dropperette (Xiidra) Eyes vitamins A,C,J-rmjs-stwyqj 4,296 1 cap PO BID 06/24/20 07/26/23 History mcg-226 mg-90 mg capsule (PreserVision AREDS) ketoconazole 2 % shampoo 1 applic topical Q14D #120 mL 08/06/22 07/26/23 Rx betamethasone dipropionate 0.05 % 1 applic topical BID PRN Skin 09/27/22 07/26/23 History topical cream Irritation fluocinonide 0.05 % topical cream 1 applic topical UD PRN Skin 09/27/22 07/26/23 History Irritation omeprazole 20 mg capsule,delayed 20 mg PO DAILY PRN gastric reflux 11/16/22 07/26/23 Rx release #90 caps tavaborole 5 % topical solution 1 applic topical DAILY PRN toenail 02/11/23 07/26/23 History with applicator fungus apixaban 2.5 mg tablet 2.5 mg PO BID #180 tabs 04/02/23 07/26/23 Rx rosuvastatin 5 mg tablet 5 mg PO QAM #90 tabs 04/09/23 07/26/23 Rx tramadol 50 mg tablet 50 mg PO BID PRN pain #60 tabs 06/20/23 07/26/23 Rx gabapentin 400 mg capsule 400 mg PO BID #180 caps 07/07/23 07/26/23 Rx losartan 25 mg tablet 25 mg PO BID #180 tabs 07/15/23 07/26/23 Rx diltiazem HCl 120 mg 120 mg PO QAM 07/26/23 07/26/23 History capsule,extended release 24 hr lorazepam 0.5 mg tablet (Ativan) 0.5 mg PO DAILY PRN Anxiety 07/26/23 07/26/23 History sertraline 50 mg tablet 50 mg PO QAM 07/26/23 07/26/23 History Wheeled Walker #1 ea 08/12/23 Rx Past Med/Surg History Medical History History of blood transfusion during delivery in 1950s with placenta previa History of seizures 05/2019 and 07/2022, "had multiple tests and no findings on MRI"-denies additional seizures GERD (gastroesophageal reflux disease) controlled, stable per pt Pacemaker Medtronic, follows with [place] [facility] Moderate to severe mitral regurgitation Paroxysmal atrial fibrillation HTN (hypertension) controlled, stable per pt Chronic anticoagulation Cervical facet joint syndrome resolved per pt and Cervicalgia resolved per pt and Tobacco use 5 cigs/day Subclinical hypothyroidism Breast mass right-cyst yrs ago; s/p excision Sick sinus syndrome Tremor hands-when anxious-stable per pt and Surgical History History of esophagogastroduodenoscopy (EGD) Hx of colonoscopy Hx of squamous cell carcinoma excision left shoulder Hx of breast augmentation age 33 H/O melanoma excision right leg Status post surgical removal of malignant neoplasm of skin Basal cell & squamous cell H/O hand surgery tendon transfer right hand S/P hysterectomy with oophorectomy Status post tubal ligation S/P tonsillectomy S/P section x2 S/P dilatation and curettage S/P appendectomy S/P cardiac pacemaker procedure age 73, [facility]; f/u dr. gongora History of bilateral hip replacements Family History Mother Alzheimer disease Breast cancer Hypertension Anxiety Father Anxiety Brother Anxiety Throat cancer Uncle Colorectal cancer Denies family history of Ovarian cancer Prostate cancer Myocardial infarction Social History Smoking Status: Current every day smoker (-advised) Tobacco Type: Cigarettes Age Started Using Tobacco: 20; packs per day: 0.25; Cigarettes Per Day: 5; Second Hand Exposure: No; Do You Dip or Chew Tobacco: No; Hx Alcohol Use: Yes Alcohol type: hard liquor Alcohol Intake Frequency Comment: 1 drink per day Hx Substance Use: No Preferred Language: Indonesian Communication Ability: Effective Communication Tools: Lip Movement/Reading Visual Impairment: Limited Hearing Ability: Hard of Hearing E Mail System Administrator Required: No Beliefs That Will Affect Care: None marital status: Current Living Situation: Spouse current occupational status: retired 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 Physical Exam . Physical examination reveals a pleasant elderly female. Looks in pretty good health. Examination of both legs reveal patient ambulates with use of a cane. Examination of the right knee reveals valgus alignment. Some mild diffuse edema distally. Range of motion about 5-1 20. No instability. No particular pain with hip motion. Examination left knee reveals reveals a similar valgus deformity. Increased with weightbearing. Mild edema. Range of motion 0-1 25. Constitutional WD/WN, vitals as above Neck trachea midline, no thyromegaly Respiratory normal respiratory effort, lungs clear to auscultation Cardiovascular RRR, no murmur, no edema Gastrointestinal (Abdomen) normal bowel sounds, soft, nontender, no hepatosplenomegaly Results & Data Results & Data Laboratory Results . Diagnostic Findings . X-rays of both knees were reviewed. Shows advanced bilateral lateral compartment DJD. Is got complete loss of the lateral joint space on both sides. She had valgus deformity to both knees. PG Care Time/CCT Total # of Minutes Spent Total Time Spent with Patient: Total time spent is greater than 50% in coordination of care (as documented) at patient's floor/unit and/or counseling patient: Coding Level of Care Code None Diagnoses Degenerative arthritis of knee, bilateral M17.0 Pacemaker Z95.0 Venous insufficiency I87.2 Paroxysmal atrial fibrillation I48.0
[~2023-08-23 07:18] MED LIST changes: -ACET-1256 PO; +BUPIVACAINE 0.5 % 5 MG/1 ML PF 10ML VIAL ONE; -CHOL1000 PO; -CZR25 PO; -DIPH1TAB98 PO; -ESCI10TA17 PO; -FERR325T18 PO; -FLUT0.15 INTNAS; -FLUT115A INH; -GLUCTAB7 PO; -GUAISYP4 PO; +LR 500ML BOLUS, THEN 15ML/HR IV SCH; -MULT-190 PO; -NZRSHM TOP; -OMEP20CA9 PO; -RIVA1TAB4 PO; +ROPIVACAINE 0.5% 5 MG/ML 30 ML VIAL ONE; -ULT50X PO; -VERA120T8 PO
[2023-08-23] MEDS: LR 500ML BOLUS, THEN 15ML/HR IV SCH (07:45)
[2023-08-23] MEDS: LR 60ML/HR IV SCH (08:02)
[2023-08-23] MEDS ORDERED: MIDAZOLAM HCL 1 MG/ML 2ML VIAL ONE (08:03)
[2023-08-23] MEDS ORDERED: fentaNYL citrate PF 100 MCG/2 ML VIAL ONE (08:03)
[2023-08-23] MEDS ORDERED: PROPOFOL IV EMULSION 10 MG/ML 20 ML VIAL IV ONE (08:03)
[2023-08-23] MEDS ORDERED: HYDROmorphone INJ 1 MG/ML SYRINGE IV PRN (08:25)
[2023-08-23] MEDS ORDERED: ePHEDrine sulfate 50 MG/ML AMP IV PRN (08:25)
[2023-08-23] MEDS ORDERED: ATROPINE SULFATE 0.1 MG/ML 10ML SYR IV PRN (08:25)
[2023-08-23] MEDS: ACETAMINOPHEN 500 MG TAB PO SCH ×2 (08:28→13:53)
[2023-08-23] MEDS: METOCLOPRAMIDE HCL 10 MG TABLET PO SCH (08:31)
[2023-08-23] MEDS: dexAMETHasone**PF** 10 MG/ML VIAL IV SCH (08:31)
[2023-08-23] MEDS: CeleBREX 200 MG CAP PO SCH (08:31)
[2023-08-23] MEDS: FAMOTIDINE 20 MG TAB PO SCH (08:31)
--- NOTE | 2023-08-23 08:42 | History & Physical Bridge Note ---
Date of Service August 23, 2023 History & Physical Bridge Note I have examined the patient, reviewed the History & Physical and in the interval since the performance of the History & Physical I have noted the following changes of clinical significance: no changes noted
[2023-08-23] MEDS: ceFAZolin 2000MG 2,000 MG/15 ML SYR IV SCH (09:06)
[2023-08-23] MEDS ORDERED: ONDANSETRON INJ 2 MG/ML 2 ML VIAL ONE (09:35)
[2023-08-23] MEDS: ORTHO JOINT ANESTHETIC ONE (09:40)
[2023-08-23] MEDS: ROPIV 0.5% 246mg, Ketorolac 30mg, EPINEPHrine 0.5mg in NSS INFIL SCH (09:40)
[2023-08-23] MEDS: TRANEXAMIC ACID 1,000 MG **IV Intra-op IV SCH (09:51)
--- NOTE | 2023-08-23 10:51 | Operative Report ---
PG Post Operative Report Pre & Post Diagnosis Operation Date: 08/23/23 08:50 Pre-Op Diagnosis: Right Knee Degenerative Joint Disease Post-Op Diagnosis: Right Knee Degenerative Joint Disease I identified the patient and participated in the time-out.: Yes Procedure Operation Date: 08/23/23 08:50 Actual Procedures p Right Total Knee Arthroplasty(Right) - Juan Hart MD Surgeon Juan Hart MD Brick And Tile Making Machine Operator Zbigniew Melo PA-C Estimated Blood Loss 50 Findings Consistent with Post-Op Diagnosis Operative findings with advanced right knee lateral compartment DJD. She had grade 4 [id number] disease of from condyle lateral to the patella. She also had grade 4 disease of the patellofemoral joint. She had a fixed valgus deformity to her knee. Moderate-sized joint effusion. Diffuse osteopenia. Specimens Right knee sent for pathology. Anesthesia Type Spinal MAC Complications none Disposition Accompanied Patient To Recovery: No Indications Patient is an 83-year-old female is had a long history of multiple orthopedic issues over the years. She has had both hips replaced in the past. Over the past several years she developed increased pain discomfort in both knees. She been through extensive conservative treatments became less successful over time. The right knee was bothering more than the left. She elected proceed with right total knee arthroplasty. Description of Procedure Operative implants consist of: 1 Biomet Vanguard size 65 right posterior stabilized femoral component. 2. Biomet size 67 tibial tray. 3. 10 mm posterior stabilized polyethylene insert. 4. 31 x 8 all poly patella. The patient was taken the operating, identified, placed on the operating table in the supine position. All contact areas were properly padded. IV antibiotics tried by anesthesia team. A spinal anesthetic and adductor canal block had provided in the holding area. A Salvador catheter was placed in sterile fashion. A right thigh tourniquet was then placed. The right lower extremity was then prepped and draped in usual sterile fashion. The right leg was elevated exsanguinated with use of an Esmarch and tourniquet placed at 300 mmHg. An anterior approach to the right knee was then performed to longitudinal incision centered over the patella. Sharp dissection carried through subcutaneous tissue down the extensor mechanism. A medial parapatellar arthrotomy incision was made. Some subperiosteal dissection was carried out medially. The fat pad was resected from Neath patella tendon. Lateral patellofemoral ligament was released. Patella subluxated laterally knee was flexed. The osteophyte taken off distal femur. The ACL and PCL were then released on distal femur the tibia subluxated anteriorly. The external tibial alignment jig was then placed in the anterior face of the tibia and adjusted 12 mm medially. The proximal tibial cut was made remove about 3 mm of bone from the medial side. The tibia was sized to a size 67. We tried to maximize coverage with her osteopenia. Attention drawn the femur. The distal femur examined the sharp drill. Intramedullary canal was suction. A right 5 degree valgus cutting guide was placed. The distal femoral cutting block was pinned in place. Distal femoral cut was made to take an additional 3 mm bone off distal femur. The femur was then sized to a size 65. The AP cutting block was pinned parallel to the epicondylar axis which was 4 degrees of external rotation. The anterior cut, anterior chamfer, posterior cut, posterior chamfer cuts were made. The box cutting guide was laterally on the distal femur. The distal femoral box cut was then made. The knee was flexed. The remnants of the medial and lateral menisci were excised. The osteophytes were taken off the posterior aspect of the femur. A trial femoral component was placed. The tibial tray was pinned Lucy external rotation and the drill and stem punch used to create defect in proximal tibia for the tibial tray. The knee was then trialed and the 10 mm insert fit most appropriately. Attention drawn the patella. The patella was cleaned of all soft tissue. Patella thickness measured 21 mm in thickness was cut down to 13. The patella was sized to a size 31. The lug holes were drilled for 31 patella. The lateral osteophytes removed. Patella button was placed. Knee was taken through range of motion patella tracked nicely with no thumbs test. Attention drawn to placing the permanent components. Nupathe all trial components were removed. Bone plug was placed into this femur limit blood loss. Double batch Palacos G cement was mixed. A Biomet Vanguard size 65 right posterior stabilized femoral component, size 67 tibial tray, a 10 mm post stabilized polyethylene insert, and 31 x 8 all poly patella then cemented in place. The knee was brought out in full extension till cement hardened. Final cement check was then performed. The pericapsular tissues were injected with total of 100 cc of orthopedic joint mix. The patient did receive 1 g of tranexamic acid. The tourniquet was then let down for final tourniquet time of 50 minutes. Hemostasis assured use electrocautery. Extensor Meclomen closed with combination 1 PDS suture #1 Vicryl suture in a [id number] fashion. Extensor Meclomen checked found intact through the subcutaneous tissues then closed with 2 Dexon suture in a buried interrupted fashion skin was closed skin krunal. Leg was then cleaned and dried and sterile dressing was Xeroform, 4 fours, sterile cast padding, Kranthi bandage were applied. The patient was then transferred to the recovery room in stable condition. Patient tolerated the procedure well and there were no complications. Zbigniew Melo, my physician commercial loan assistant, was present for the entire procedure. His assistance was essential and required for appropriate patient positioning, prepping and draping, surgical exposure, performing the technical details of the operation, placement the implants, closure of the wound, and placement of the sterile bandage. I attest to the content of the Intraoperative Record and any orders documented therein. Any exceptions are noted below.
--- NOTE | 2023-08-23 11:06 | XRay Report ---
TWO VIEWS RIGHT KNEE CLINICAL HISTORY: Postoperative examination. FINDINGS: AP and crosstable lateral portable views of the right knee are obtained. A right knee arthr oplasty is in near anatomic alignment. There has been undersurface remodeling of the patella. No acut e fracture is seen. There are expected postoperative changes around the knee including skin clips, so ft tissue edema, and subcutaneous gas. IMPRESSION: Expected postoperative changes status post right knee arthroplasty. No acute fracture is seen. ACT 112: Negative or not required by law. Electronically signed by: Joni Foster M.D. 08/23/2023 11:05 AM
[2023-08-23] MEDS ORDERED: HYDROmorphone INJ 0.5 MG/0.5 ML SYR IV PRN (12:54)
[2023-08-23] MEDS ORDERED: FLUOCINONIDE 0.05% TOP PRN (12:54)
[2023-08-23] MEDS ORDERED: ONDANSETRON INJ 2 MG/ML 2 ML VIAL IV PRN (12:54)
[2023-08-23] MEDS ORDERED: ALUMINUM/MAGNESIUM SUSP 30 ML UDC PO PRN (12:54)
[2023-08-23] MEDS ORDERED: bisacodyL 10 MG SUPP PR PRN (12:54)
[2023-08-23] MEDS ORDERED: NALOXONE HCL 0.4 MG/1 ML VIAL/CARP IV PRN (12:54)
[2023-08-23] MEDS ORDERED: MAGNESIUM HYDROXIDE SUSP 30 ML UDC PO PRN (12:54)
[2023-08-23] MEDS ORDERED: KETOCONAZOLE 2% CR 15 GM TUBE EXT PRN (12:54)
[2023-08-23] MEDS ORDERED: METOCLOPRAMIDE HCL INJ 5 MG/ML 2 ML VIAL IV PRN (12:54)
[2023-08-23] MEDS ORDERED: APPLICATOR TOP PRN (12:54)
[2023-08-23] MEDS ORDERED: [UNRECOGNIZED DRUG - OTHER] TOP PRN (12:54)
[2023-08-23] MEDS ORDERED: TRIAMCINOLONE ACET 0.5% CR 15 GM TUBE TOP PRN (13:00)
[2023-08-23] MEDS ORDERED: ARTIFICIAL TEARS OP PRN (13:11)
[2023-08-23] MEDS: KETOROLAC TROMETHAMINE 15 MG/ML VIAL IV SCH (13:53)
[2023-08-23] MEDS: SODIUM CHLORIDE 0.9% 1,000 ML IV SCH (13:54)
--- NOTE | 2023-08-23 14:23 | Anesthesiology Progress Note ---
Date of Service August 23, 2023 Anesthesia Post Procedure Vital Signs Vital Signs: Temp Pulse Pulse Resp BP BP Pulse Ox 08/23/23 13:45 36.4 C L 66 16 138/58 L 97 08/23/23 13:15 36.4 C L 63 16 137/62 97 08/23/23 12:45 36.4 C L 70 16 125/52 L 96 08/23/23 12:30 60 14 151/66 H 96 08/23/23 12:20 61 19 143/57 H 96 08/23/23 12:10 36.3 C L 63 21 126/61 96 08/23/23 12:00 60 14 128/57 L 95 08/23/23 11:50 61 12 137/57 L 96 08/23/23 11:40 62 14 135/58 L 96 08/23/23 11:30 60 12 134/60 94 08/23/23 11:20 61 12 137/55 L 97 08/23/23 11:10 61 14 137/60 94 08/23/23 11:00 60 11 L 139/56 L 100 08/23/23 10:50 60 15 130/54 L 100 08/23/23 10:44 36.0 C L 62 10 L 117/48 L 100 08/23/23 07:45 36.4 C L 62 20 160/87 H 97 O2 Del Method O2 Flow Rate 08/23/23 13:45 Room Air 08/23/23 13:15 Room Air 08/23/23 12:45 Room Air 08/23/23 12:30 Room Air 08/23/23 12:20 Room Air 08/23/23 12:10 Room Air 08/23/23 12:00 Room Air 08/23/23 11:50 Room Air 08/23/23 11:40 Room Air 08/23/23 11:30 Room Air 08/23/23 11:20 Room Air 08/23/23 11:10 Room Air 08/23/23 11:00 Oxymask 4 08/23/23 10:50 Oxymask 4 08/23/23 10:44 Oxymask 6 08/23/23 07:45 Room Air Pain Intensity Right Knee: Pain Intensity: 8 Transfer of Care Handoff Completed per policy Notes Mental Status: alert / awake / arousable and participated in evaluation Nausea / Vomiting: adequately controlled Pain: adequately controlled Airway Patency, RR, SpO2: stable & adequate BP & HR: stable & adequate Hydration State: stable & adequate Neuraxial Anesthesia: was administered and sensory block is resolving Anesthetic Complications: no major complications apparent and Pt Satisfied with anesthetic care
[2023-08-23] MEDS: oxyCODONE HCL IR 5 MG TAB (IMMEDIATE RELEASE) PO PRN (16:35)
[2023-08-23] MEDS: TRANEXAMIC ACID / 0.7% NACL 1,000 MG/100 ML BAG IV SCH (16:36)
[2023-08-23] MEDS: ceFAZolin 1000MG 1,000 MG/7.5 ML SYR IV SCH (16:36)
[2023-08-23] MEDS: ASCORBIC ACID 500 MG TAB PO SCH (16:36)
[2023-08-23] MEDS: SENNA 8.6 MG TAB PO SCH (20:10)
[2023-08-23] MEDS: DOCUSATE SODIUM 100 MG CAP PO SCH (20:10)
[2023-08-23] MEDS: GABAPENTIN 400 MG CAP PO SCH (20:10)
[2023-08-23] MEDS: CHOLECALCIFEROL 125 MCG (5,000 UNITS) TAB PO SCH (20:11)
[2023-08-23] MEDS: LOSARTAN POTASSIUM 25 MG TAB PO SCH (20:12)
[2023-08-23] MEDS ORDERED: SENNA 8.6 MG TAB PO SCH (21:00)
[2023-08-24] MEDS: LORazepam 0.5 MG TAB PO PRN (01:20)
[2023-08-24 06:35] LABS: Hematocrit (blood only) 24.8 % (37.0-47.0); Hemoglobin 8.5 g/dl (12.0-16.0); Mean Corpuscular Hemoglobin 30.6 pg (25.0-34.0); Mean Corpuscular Hgb Conc 34.3 g/dL (32.0-36.0); Mean Corpuscular Volume 89.2 fL (80.0-100.0); Mean Platelet Volume 8.7 fL (9.4-12.4); Platelet Count 261 K/uL (130-400); RDW Coefficient of Variation 13.5 % (11.5-14.5); RDW Standard Deviation 44.5 fL (36.4-46.3); Red Blood Count 2.78 M/uL (4.20-5.40)
[2023-08-24 06:45] LABS: BUN Creatinine Ratio 20.2 (10-20); Calcium 7.8 mg/dl (8.6-10.3); Creatinine Clr Calc Pharmacy 39.4 ml/min; Est GFR (African American) 64.1 ml/min; Est GFR (Non-African American) 55.3 ml/min; Potassium 3.9 mmol/L (3.5-5.1)
--- NOTE | 2023-08-24 07:25 | Surgery Progress Note ---
Date of Service August 24, 2023 Assessment & Plan (1) Status post total right knee replacement: Plan: 83-year-old female postop day 1 from right knee replacement. She is doing pretty well. Pain is controlled. She is neurologically intact. Appears medically stable. Plan: 1. DVT prophylaxis including thigh-high teds, SCDs, back on her Eliquis 2 0.5 mg twice daily. 2. PT/OT. Weight-bear as tolerated right total knee protocol. 3. Pain control doing okay with current pain regimen. 4. Disposition plan is to discharge her to home. She can have home health and her 's assistance. Admission and Anticipated Discharge Date Admission Date: August 23, 2023 Subjective 83-year-old female postop day 1 from a right knee replacement. She is doing pretty well. Had a reasonable night. Pain seems to be controlled. No chest pain or shortness of breath. Not feeling dizzy or lightheaded. She is hoping to go home today with her 's assistance. Physical Exam Physical Exam: Physical examination was a pleasant elderly female patient lying in bed looks pretty comfortable. Examination of the right leg reveals the dressing clean dry and intact patient can dorsiflex and plantarflex her foot appropriately. She is neurologically intact. Respiratory: normal respiratory effort, lungs clear to auscultation Cardiovascular: RRR, no murmur, no edema Gastrointestinal (Abdomen): normal bowel sounds, soft, nontender, no hepatosplenomegaly Results & Data Vital Signs (Past 12 Hours) Vital Signs Temp Pulse Resp BP Pulse Ox O2 Del Method 08/24/23 07:21 36.7 C 87 18 179/76 H 99 Room Air 08/24/23 03:53 36.8 C 86 17 143/66 H 96 Room Air 08/24/23 00:10 37.0 C 78 18 166/81 H 97 Room Air 08/23/23 19:26 36.8 C 79 18 138/64 98 Room Air Laboratory Results Hemoglobin 8.5. Hematocrit 24.8. Electrolytes are stable. PG Care Time/CCT Total # of Minutes Spent Total Time Spent with Patient: Total time spent is greater than 50% in coordination of care (as documented) at patient's floor/unit and/or counseling patient: Coding Level of Care Code 64964 Post Operative Follow-Up Diagnoses Status post total right knee replacement Z96.651
[2023-08-24] MEDS: dexAMETHasone 10 MG in SYRINGE 0 ML IV SCH (08:00)
[2023-08-24] MEDS: ROSUVASTATIN CALCIUM 5 MG TAB PO SCH (08:04)
[2023-08-24] MEDS: SERTRALINE HCL 50 MG TABLET PO SCH (08:04)
[2023-08-24] MEDS: dilTIAZem HCL 120 MG CAPCR PO SCH (08:05)
[2023-08-24] MEDS: MULTIVITAMIN TAB PO SCH (08:05)
[2023-08-24] MEDS: CEROVITE ADV FORMULA TAB PO SCH (08:05)
[2023-08-24] MEDS: APIXABAN 2.5 MG TAB PO SCH (10:13)
== END 2023-08-24 11:04 | disposition home health service (06) ==
LOC: ASU 07:18 → 3E 07:18

== ENCOUNTER 2025-01-29 05:56 | Observation (INO) ==
--- NOTE | 2025-01-29 06:29 | Emergency Department Note ---
Impression & Plan Hypoxia, Acute alteration in mental status ED Provider Note NAME: CONNIE CASTELLANO AGE: 84 SEX: F : 1940 ARRIVES VIA: Ambulance INFORMANT: Patient, ED PROVIDER(S): Patrick Ram MD CHIEF COMPLAINT: Seizure, low oxygen MEDICAL DECISION MAKING: Patient presents with the above. IV was established and blood work was obtained. Patient ordered DuoNeb treatment as well as IV methylprednisolone. Chest x-ray and CT head also ordered given concern procedure. Patient also ordered 1500 of IV Keppra. I was asked to get back to see the patient says she may have been a bit more lethargic. Upon arrival the patient's vital signs are reassuring the patient is easily arousable and follows commands. Blood sugar was checked and 100. Blood work shows a normal white count hemoglobin 11.7 with a normal platelet count kidney function with some prerenal azotemia prolactin and lactate normal. BioFire negative chest x-ray read as negative. CT head with atrophy but no obvious ICH. Given the patient's hypoxic respiratory failure I did speak with the on-call hospitalist service Dr. Solis and the patient was admitted to medicine service. Of note the patient did have a change in her telemetry on the monitor and did have the patient's pacemaker interrogated again. I did speak with the [employer] rep Jesus who stated that this appeared to be a brief run of SVT. Critical Care: I have personally spent 37 minutes of critical care time in direct management of this patient. This includes bedside care, interpretation of diagnostic studies, and testing, discussion with consultants, patient, and family members, and other require inpatient management activities. This 37 minutes is in excess of all separately billable procedures. Discussion w/ other healthcare providers: Josr Hilliard PA-C with Dr. Solis Prior /Outside records reviewed: None Differential diagnosis: Epilepsy, infection, hypoglycemia, electrolyte abnormalities, cardiac sources, intracerebral event, trauma, toxicologic, neurologic, syncope, as well as other pathologies. Diagnostics, as interpreted by me: ECG: A paced rhythm, rate of 70, normal intervals, normal axis no obvious ST elevations. Q waves noted anteriorly. Cardiac monitoring: An order was placed for continuous cardiac monitoring. The monitor shows a rate of 72 with regular rhythm. Patient was placed on pulse oximetry Medical decision rules: None Imaging studies: I informally interpreted the patient's chest x-ray does not show evidence of obvious pneumothorax, breast implants noted noted with formal report to follow. HPI: Patient presents due to concern for seizure. Patient's provides a history and reports that she was hyperventilating which is typically how she presents when she has seizure-like episode. States that typically these episodes only last about 20 total minutes including the postictal time but states that today it was essentially 45 minutes and thus called the ambulance. Patient was noted to have low oxygen at 80% was placed on supplemental nasal cannula. The patient is a smoker. She denies any chest pain or shortness of breath no cough or reported respiratory symptoms at this time. She denies any falls or trauma no abdominal pain. Reported prior history of seizures and has been taking gabapentin in the past. reports that because of certain side effects they have not taken this medication. No known travel or known sick contacts recently. PAST MEDICAL HISTORY: See Below PAST SURGICAL HISTORY: See Below SOCIAL HISTORY: See Below HOME MEDICATIONS: See Below ALLERGIES: See Below VITALS: See Below PHYSICAL EXAMINATION: GENERAL: Fatigued but nontoxic in appearance, nasal cannula in place. EYE EXAM: Normal conjunctiva. PERRL, no anisocoria and EOM's grossly intact w/o pain. OROPHARYNX: Moist mucus membranes, grossly normal dentition. NECK: Trachea midline, no stridor. LUNGS: Diminished breath sounds throughout. Normal chest wall mechanics. HEART: NSR, no MRG. ABDOMEN: Abdomen soft, non-tender, no masses, no rebound or guarding. BACK: No CVA TTP. SKIN: No rashes and no bruising. UPPER EXTREMITIES: Upper extremities are grossly normal. LOWER EXTREMITIES: Grossly normal, no edema. NEURO EXAM: Awake and alert, follows commands, no obvious facial asymmetry, normal speech, moves all 4 extremities. Past Med/Surg History Problem List (Updated 01/29/25 @ 15:31 by Patrick Ram MD) Acute alteration in mental status (Acute) Hypoxia (Acute) Swelling of left lower extremity Hypoxia Seizure Adenomatous rectal polyp Seizures Chest skin lesion Posterior tibial tendon dysfunction Acquired valgus deformity knee Acquired valgus deformity of foot Pain of left heel Hammertoe, bilateral Bloating Change in bowel habits Impacted cerumen Lightheadedness Periprosthetic fracture around other internal prosthetic joint, initial encounter (Acute ~02/03/24) Comminuted periprosthetic fracture through the greater trochanter of the right proximal femur Generalized anxiety disorder 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 Right rib fracture (04/16/23) from a fall Venous insufficiency Chronic anticoagulation Cervical facet joint syndrome resolved per pt and Cervicalgia resolved per pt and Dry skin dermatitis Tobacco use 5 cigs/day Rhinitis resolved Rhinorrhea resolved Sneezing with watery eyes resolved Pacemaker Skin pruritus Neck muscle spasm SCM, splenius capitis Sternocleidomastoid muscle tenderness hx-RIGHT Strain of sternocleidomastoid muscle hx-RIGHT Subclinical hypothyroidism Degenerative arthritis of knee, bilateral Seizure-like activity (Acute) Fatigue Gait apraxia Osteoporosis Sick sinus syndrome Tremor hands-when anxious-stable per pt and Cerebrovascular disease Memory loss (Acute) Moderate to severe mitral regurgitation Paroxysmal atrial fibrillation Arthritis Dyslipidemia HTN (hypertension) (Acute) controlled, stable per pt Medical History Bronchitis Hearing loss no hearing aids Cerebrovascular disease pt denies Chronic anticoagulation Eliquis - [facility] Loose stools Reason for procedure 07/27/24 Nausea Reason for procedure 07/27/24 Loss of appetite Reason for procedure 07/27/24 Venous insufficiency Tremor "its not a lot" hands - as per patients Subclinical hypothyroidism pt denies Osteoporosis Moderate to severe mitral regurgitation [facility] Lightheadedness "I do get lightheaded and has caused me to fall. It's just a balance issue" most recent last month, no ER visit for "this one" Gait apraxia Walker Memory loss "not anything more for any other 84yo." Hypertension ELIZABET (generalized anxiety disorder) Atrial fibrillation Eliquis - [facility] Cardiology Dyslipidemia PONV (postoperative nausea and vomiting) with 08/23/23 procedure - "nausea, unable to eat, diarrhea for three weeks after" as per patient History of blood transfusion during delivery in 1950s with placenta previa History of seizures 05/2019 and 07/2022, "had multiple tests and no findings on MRI"-denies additional seizures - did follow with [facility] Neurology GERD (gastroesophageal reflux disease) controlled, stable per pt Pacemaker [employer], follows with [facility] - last check 05/2024 Breast mass right-cyst yrs ago; s/p excision Surgical History History of arthroplasty of right knee (08/2023) History of esophagogastroduodenoscopy (EGD) Hx of colonoscopy Hx of squamous cell carcinoma excision left shoulder Hx of breast augmentation age 33 H/O melanoma excision right leg Status post surgical removal of malignant neoplasm of skin Basal cell & squamous cell H/O hand surgery tendon transfer right hand S/P hysterectomy with oophorectomy Status post tubal ligation S/P tonsillectomy S/P section x2 S/P dilatation and curettage S/P appendectomy during a S/P cardiac pacemaker procedure age 73, [facility]; f/u dr. gongora History of bilateral hip replacements Family History Mother Alzheimer disease Breast cancer Hypertension Anxiety Stroke Father Anxiety Brother Anxiety Throat cancer Denies family history of Ovarian cancer Prostate cancer Myocardial infarction Social History Smoking Status: Current every day smoker Tobacco Type: Cigarettes Age Started Using Tobacco: 20; packs per day: 0.25; Cigarettes Per Day: 5; Second Hand Exposure: No; Do You Dip or Chew Tobacco: No; Hx Alcohol Use: Yes Alcohol type: wine Alcohol Intake Frequency: 4 or More x per/Week Alcohol Intake Frequency Comment: 1 drink per day Hx Substance Use: No Preferred Language: Angolan Communication Ability: Effective Communication Tools: Lip Movement/Reading Visual Impairment: Limited Hearing Ability: Hard of Hearing [employer] Dispatcher Required: No Beliefs That Will Affect Care: None marital status: Current Living Situation: Spouse Current Living Situation Comment: Lives with current occupational status: retired 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, 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 How many Children do You have: 3 Other Information That Helps Us Care for You: No Feels Safe at Home: Yes Safety Concerns: Feels Safe At This Time Childhood Exposure to Second-Hand Smoke: Yes Diet: regular during the past year weight has: remained stable Dental Care, Regularly: Yes Physical Activity Frequency: Daily Seatbelt Use: always Sunscreen Use: Yes (sometimes ) Assistive Devices: Cane and Walker Assistive Devices Comment: pt uses a walker or cane she reports Allergies Allergies Allergy/AdvReac Type Severity Reaction Status Date / Time Sulfa (Sulfonamide Allergy Intermediate Hives, Rash Verified 01/25/25 13:50 Antibiotics) Home Meds Home Medications Medication Instructions Recorded Confirmed cholecalciferol (vitamin D3) 125 5,000 units PO HS 01/06/19 01/29/25 mcg (5,000 unit) capsule vitamins A,C,P-irai-oiymzo 4,296 1 cap PO BID 06/24/20 01/29/25 mcg-226 mg-90 mg capsule (PreserVision AREDS) betamethasone dipropionate 0.05 % 1 applic topical BID PRN Skin 09/27/22 01/29/25 topical cream Irritation fluocinonide 0.05 % topical cream 1 applic topical UD PRN Skin 09/27/22 01/29/25 Irritation tavaborole 5 % topical solution 1 applic topical DAILY PRN toenail 02/11/23 01/29/25 with applicator fungus acetaminophen 325 mg tablet 650 mg PO Q6H PRN Pain 01/14/24 01/29/25 apixaban 2.5 mg tablet (Eliquis) 2.5 mg PO BID 07/20/24 01/29/25 carboxymethylcellulose sodium 0.25 1 drp ophthalmic (eye) BID 07/20/24 01/29/25 % eye drops (TheraTears) metoprolol succinate 25 mg 25 mg PO QAM 07/20/24 01/29/25 tablet,extended release 24 hr sertraline 100 mg tablet (Zoloft) 100 mg PO QAM 07/20/24 01/29/25 ketoconazole 2 % shampoo 1 applic topical Q14D PRN Other 01/29/25 01/29/25 Previous Rx's Medication Instructions Recorded Wheelhelen Walker #1 ea 08/12/23 lorazepam 0.5 mg tablet (Ativan) 0.5 mg PO DAILY PRN Anxiety #30 01/07/24 tabs gabapentin 400 mg capsule 400 mg PO BID #180 caps 07/21/24 (Neurontin) ondansetron 4 mg disintegrating 4 mg PO Q8 PRN nausea #20 tabs 12/09/24 tablet omeprazole 20 mg capsule,delayed 20 mg PO DAILY #90 caps 12/17/24 release rosuvastatin 5 mg tablet 5 mg PO QAM #90 tabs 12/29/24 Results & Data (ED) Vital Signs Vital Signs - 24 hr 01/29/25 06:02 01/29/25 06:03 01/29/25 06:03 Temperature 36.8 C Temperature Source Oral Pulse Rate 90 84 Pulse Rate [Left Finger] Pulse Rate from SpO2 Sensor Pulse Rhythm Regular Pulse Rhythm [Left Finger] Pulse Strength Normal Pulse Strength [Left Finger] Respiratory Rate 21 Respiratory Effort / Characteristics Non-Labored Spontaneous Respiratory Depth Normal Respiratory Pattern Regular Blood Pressure 177/87 H Blood Pressure Mean 117 Blood Pressure Position Lying Pulse Oximetry 97 87 L Oxygen Delivery Method Room Air Nasal Cannula Oxygen Flow Rate 0 Sepsis Recent Fever Within 48 Hours No Sepsis New/Unexplained Change in Mental Status No Sepsis Action Taken by Nursing No Action Required Oxygen Flow Rate - Titration 3 Pulse Oximetry Post Tiitration 96 01/29/25 06:03 01/29/25 06:24 01/29/25 06:51 Temperature Temperature Source Pulse Rate 77 60 Pulse Rate [Left Finger] 66 Pulse Rate from SpO2 Sensor Pulse Rhythm Regular Pulse Rhythm [Left Finger] Regular Pulse Strength Pulse Strength [Left Finger] Normal Respiratory Rate 21 21 13 Respiratory Effort / Characteristics Non-Labored Spontaneous Respiratory Depth Normal Respiratory Pattern Blood Pressure 168/72 H Blood Pressure Mean 106 Blood Pressure Position Pulse Oximetry 96 97 97 Oxygen Delivery Method Nasal Cannula Nasal Cannula Nasal Cannula Oxygen Flow Rate 3 3 2 Sepsis Recent Fever Within 48 Hours Sepsis New/Unexplained Change in Mental Status Sepsis Action Taken by Nursing Oxygen Flow Rate - Titration Pulse Oximetry Post Tiitration 01/29/25 06:51 01/29/25 06:51 01/29/25 07:00 Temperature Temperature Source Pulse Rate Pulse Rate [Left Finger] Pulse Rate from SpO2 Sensor Pulse Rhythm Pulse Rhythm [Left Finger] Pulse Strength Pulse Strength [Left Finger] Respiratory Rate Respiratory Effort / Characteristics Respiratory Depth Respiratory Pattern Blood Pressure 168/72 H 168/72 H 146/66 H Blood Pressure Mean 106 106 93 Blood Pressure Position Pulse Oximetry Oxygen Delivery Method Oxygen Flow Rate Sepsis Recent Fever Within 48 Hours Sepsis New/Unexplained Change in Mental Status Sepsis Action Taken by Nursing Oxygen Flow Rate - Titration Pulse Oximetry Post Tiitration 01/29/25 07:00 01/29/25 07:00 01/29/25 07:00 Temperature Temperature Source Pulse Rate 62 Pulse Rate [Left Finger] Pulse Rate from SpO2 Sensor 63 Pulse Rhythm Pulse Rhythm [Left Finger] Pulse Strength Pulse Strength [Left Finger] Respiratory Rate 15 Respiratory Effort / Characteristics Respiratory Depth Respiratory Pattern Blood Pressure 146/66 H 146/66 H Blood Pressure Mean 93 93 Blood Pressure Position Pulse Oximetry 94 Oxygen Delivery Method Oxygen Flow Rate Sepsis Recent Fever Within 48 Hours Sepsis New/Unexplained Change in Mental Status Sepsis Action Taken by Nursing Oxygen Flow Rate - Titration Pulse Oximetry Post Tiitration 01/29/25 07:32 01/29/25 07:32 01/29/25 08:01 Temperature Temperature Source Pulse Rate 63 61 90 Pulse Rate [Left Finger] Pulse Rate from SpO2 Sensor Pulse Rhythm Pulse Rhythm [Left Finger] Pulse Strength Pulse Strength [Left Finger] Respiratory Rate 15 16 20 Respiratory Effort / Characteristics Respiratory Depth Respiratory Pattern Blood Pressure 164/68 H 164/68 H 143/56 H Blood Pressure Mean 113 113 77 Blood Pressure Position Pulse Oximetry 94 92 96 Oxygen Delivery Method Nasal Cannula Nasal Cannula Nasal Cannula Oxygen Flow Rate 2 2 2 Sepsis Recent Fever Within 48 Hours Sepsis New/Unexplained Change in Mental Status Sepsis Action Taken by Nursing Oxygen Flow Rate - Titration Pulse Oximetry Post Tiitration 01/29/25 08:30 01/29/25 09:00 01/29/25 09:19 Temperature Temperature Source Pulse Rate Pulse Rate [Left Finger] Pulse Rate from SpO2 Sensor Pulse Rhythm Pulse Rhythm [Left Finger] Pulse Strength Pulse Strength [Left Finger] Respiratory Rate Respiratory Effort / Characteristics Respiratory Depth Respiratory Pattern Blood Pressure 124/59 L 150/78 H Blood Pressure Mean 87 110 Blood Pressure Position Pulse Oximetry 98 Oxygen Delivery Method Nasal Cannula Oxygen Flow Rate 2 Sepsis Recent Fever Within 48 Hours Sepsis New/Unexplained Change in Mental Status Sepsis Action Taken by Nursing Oxygen Flow Rate - Titration Pulse Oximetry Post Tiitration Home Medications Current Medication List: was personally reviewed by me Laboratory Data Attestation: I reviewed the patient's lab results. 01/29/25 06:17 01/29/25 06:17 Lab Results 01/29/25 01/29/25 01/29/25 Range/Units 06:17 06:30 06:50 WBC 6.36 (4.8-10.8) K/ul RBC 4.08 L (4.20-5.40) M/uL Hgb 11.7 L (12.0-16.0) g/dl Hct 36.1 L (37.0-47.0) % MCV 88.5 (80.0-100.0) fL MCH 28.7 (25.0-34.0) pg MCHC 32.4 (32.0-36.0) g/dL RDW Std Deviation 48.5 H (36.4-46.3) fL RDW Coeff of Cecilia 15.1 H (11.5-14.5) % Plt Count 283 (130-400) K/uL MPV 8.9 L (9.4-12.4) fL Immature Gran % (Auto) 0.6 % Neut % (Auto) 70.5 % Lymph % (Auto) 13.5 % Rogers % (Auto) 12.1 % Eos % (Auto) 3.0 % Baso % (Auto) 0.3 % Neut # (Auto) 4.48 (1.40-6.50) K/uL Lymph # (Auto) 0.86 L (1.20-3.40) K/uL Rogers # (Auto) 0.77 H (0.11-0.59) K/uL Eos # (Auto) 0.19 (0.00-0.50) K/uL Baso # (Auto) 0.02 (0.00-0.20) K/uL Immature Gran # (Auto) 0.04 (0.01-0.20) K/uL PT 10.4 (9.0-12.0) Seconds INR 1.0 (0.9-1.1) APTT 29 (21-31) Seconds PTT Ratio 1.1 Sodium 138 (136-145) mmol/L Potassium 3.9 (3.5-5.1) mmol/L Chloride 104 (98-107) mmol/L Carbon Dioxide 26 (21-32) mmol/L Anion Gap 8 (3-11) BUN 22 (6-23) mg/dl Creatinine 0.93 (0.6-1.2) mg/dl Est Cr Clr Drug Dosing 39.1 ml/min eGFR 59.86 BUN/Creatinine Ratio 23.7 H (10-20) Glucose 93 (70-99(Fasting)) mg/dl POC Glucose 100 H (70-99) mg/dl Lactate (0.4-2.0) mmol/L Calcium 8.9 (8.6-10.3) mg/dl Magnesium 2.0 (1.7-2.4) mg/dl Total Bilirubin 0.6 (0.2-1.0) mg/dl AST 19 (13-39) U/L ALT 13 (7-52) U/L Alkaline Phosphatase 95 (34-104) U/L Total Creatine Kinase 113 (26-192) U/L Troponin I High Sens 6.9 (0-14) pg/ml Total Protein 6.8 (6.0-8.3) gm/dl Albumin 4.2 (3.4-5.0) gm/dl Globulin 2.6 (2.5-4.0) gm/dl Albumin/Globulin Ratio 1.6 (0.9-2) TSH 3.799 (0.300-4.500) uIu/ml Prolactin 16.19 ng/ml Adenovirus (PCR) Not Detected (NotDetected) B. pertussis DNA (PCR) Not Detected (NotDetected) B.parapertussis DNA PCR Not Detected (NotDetected) C. pneumoniae DNA (PCR) Not Detected (NotDetected) Coronavirus OC43 (PCR) Not Detected (NotDetected) Coronavirus HKU1 (PCR) Not Detected (NotDetected) Coronavirus 229E (PCR) Not Detected (NotDetected) SARS-CoV-2 (PCR) Not Detected (NotDetected) Coronavirus NL63 (PCR) Not Detected (NotDetected) Human Metapneumovir PCR Not Detected (NotDetected) Influenza Type A (PCR) Not Detected (NotDetected) Influenza Type B (PCR) Not Detected (NotDetected) M. pneumoniae (PCR) Not Detected (NotDetected) Parainfluenza 1 (PCR) Not Detected (NotDetected) Parainfluenza 2 (PCR) Not Detected (NotDetected) Parainfluenza 3 (PCR) Not Detected (NotDetected) Parainfluenza 4 (PCR) Not Detected (NotDetected) RSV (PCR) Not Detected (NotDetected) Entero/Rhino (PCR) Not Detected (NotDetected) 01/29/25 Range/Units 07:36 WBC (4.8-10.8) K/ul RBC (4.20-5.40) M/uL Hgb (12.0-16.0) g/dl Hct (37.0-47.0) % MCV (80.0-100.0) fL MCH (25.0-34.0) pg MCHC (32.0-36.0) g/dL RDW Std Deviation (36.4-46.3) fL RDW Coeff of Cecilia (11.5-14.5) % Plt Count (130-400) K/uL MPV (9.4-12.4) fL Immature Gran % (Auto) % Neut % (Auto) % Lymph % (Auto) % Rogers % (Auto) % Eos % (Auto) % Baso % (Auto) % Neut # (Auto) (1.40-6.50) K/uL Lymph # (Auto) (1.20-3.40) K/uL Rogers # (Auto) (0.11-0.59) K/uL Eos # (Auto) (0.00-0.50) K/uL Baso # (Auto) (0.00-0.20) K/uL Immature Gran # (Auto) (0.01-0.20) K/uL PT (9.0-12.0) Seconds INR (0.9-1.1) APTT (21-31) Seconds PTT Ratio Sodium (136-145) mmol/L Potassium (3.5-5.1) mmol/L Chloride (98-107) mmol/L Carbon Dioxide (21-32) mmol/L Anion Gap (3-11) BUN (6-23) mg/dl Creatinine (0.6-1.2) mg/dl Est Cr Clr Drug Dosing ml/min eGFR BUN/Creatinine Ratio (10-20) Glucose (70-99(Fasting)) mg/dl POC Glucose (70-99) mg/dl Lactate 1.0 (0.4-2.0) mmol/L Calcium (8.6-10.3) mg/dl Magnesium (1.7-2.4) mg/dl Total Bilirubin (0.2-1.0) mg/dl AST (13-39) U/L ALT (7-52) U/L Alkaline Phosphatase (34-104) U/L Total Creatine Kinase (26-192) U/L Troponin I High Sens (0-14) pg/ml Total Protein (6.0-8.3) gm/dl Albumin (3.4-5.0) gm/dl Globulin (2.5-4.0) gm/dl Albumin/Globulin Ratio (0.9-2) TSH (0.300-4.500) uIu/ml Prolactin ng/ml Adenovirus (PCR) (NotDetected) B. pertussis DNA (PCR) (NotDetected) B.parapertussis DNA PCR (NotDetected) C. pneumoniae DNA (PCR) (NotDetected) Coronavirus OC43 (PCR) (NotDetected) Coronavirus HKU1 (PCR) (NotDetected) Coronavirus 229E (PCR) (NotDetected) SARS-CoV-2 (PCR) (NotDetected) Coronavirus NL63 (PCR) (NotDetected) Human Metapneumovir PCR (NotDetected) Influenza Type A (PCR) (NotDetected) Influenza Type B (PCR) (NotDetected) M. pneumoniae (PCR) (NotDetected) Parainfluenza 1 (PCR) (NotDetected) Parainfluenza 2 (PCR) (NotDetected) Parainfluenza 3 (PCR) (NotDetected) Parainfluenza 4 (PCR) (NotDetected) RSV (PCR) (NotDetected) Entero/Rhino (PCR) (NotDetected) Administered Medications Apixaban (Apixaban 2.5 Mg Tab) 2.5 mg PO BID PABLO Stop: 02/28/25 12:18 Last Admin: 01/29/25 13:28 Dose: 2.5 mg Documented By: ROYCE Ondansetron HCl (Ondansetron Inj 2 Mg/Ml 2 Ml Vial) 4 mg IV Q6H PRN PRN Reason: Nausea Stop: 02/28/25 12:18 Last Admin: 01/29/25 13:04 Dose: 4 mg Documented By: ROYCE Discontinued Medications Albuterol (Albut/Ipratrop 3mg/0.5mg Neb 3 Ml Vial) 3 ml INH NOW STA Stop: 01/29/25 06:23 Last Admin: 01/29/25 06:42 Dose: 3 ml Documented By: WILMER Gadobutrol (Gadobutrol 65ml Vial) 6 ml IV ONCE ONE Stop: 01/29/25 13:30 Last Admin: 01/29/25 13:29 Dose: 6 ml Documented By: DONNIE Levetiracetam (Levetiracetam 500 Mg/5 Ml Vial) 1,500 mg IV NOW STA Stop: 01/29/25 06:25 Last Admin: 01/29/25 06:43 Dose: 1,500 mg Documented By: [facility] Methylprednisolone (Methylprednisolone 125 Mg/2 Ml Vial) 125 mg IV NOW STA Stop: 01/29/25 06:23 Last Admin: 01/29/25 06:42 Dose: 125 mg Documented By: [facility] Imaging Data Radiologist's Impression: Chest X-Ray 01/29/25 06:22 EXAM: XR chest 1V portable CLINICAL HISTORY: weakness TECHNIQUE: An X-ray image of the chest is obtained in AP projection. COMPARISON: 11:33:11 OPTICIAN MANAGER. FINDINGS: The lungs are clear and well-expanded with no pulmonary infiltrate or pleural effusion. The cardiomediastinal silhouette is within normal limits. No acute osseous abnormality. Bilateral breast implant noted. Cardiac pacemaker noted. IMPRESSION: 1. No acute cardiopulmonary disease. No other new interval abnormality since prior study. Electronically signed by Alexis Dupont 01-29-2025 07:[address] 01/29/25 06:29 EXAM: CT head/brain wo con CLINICAL HISTORY: Seizure. TECHNIQUE: Axial non-contrast CT scan of the brain was performed from the skull base to the high parietal region. One of the following dose reduction techniques was utilized for this exam: automated exposure control, adjustment of the mA and/or kV according to patient size, or use of iterative reconstruction. CTDI: 38.95 mGy, DLP: 625.80 mGycm. COMPARISON: Comparison is made with prior CT head/brain without contrast, dated 09/05/2024. FINDINGS: Brain Parenchyma: There is ra edemonstration of global brain parenchymal involutional changes, which are stable. Confluent hypodensities are redemonstrated involving the deep periventricular white matter in the bilateral cerebral hemispheres, suggesting chronic microvascular ischemic changes, unchanged. The cerebellum and brainstem appear grossly unremarkable. There is no evidence of territorial infarct, intraparenchymal hemorrhage, mass effect, or midline shift. Ventricular System: The ventricles are prominent. There is no evidence of hydrocephalus. Subarachnoid Spaces: Unchanged enlarged subarachnoid spaces are present in the bilateral frontal and parietal regions. There is no evidence of subarachnoid hemorrhage or extra-axial fluid collections. Orbits: The optic nerves appear tortuous on both sides, with a coexistent partially empty sella, which is stable. The visualized globes and extraocular muscles appear unremarkable. Sinuses: The paranasal sinuses are clear. There is no evidence of sinusitis or mucosal thickening. Mastoid Air Cells: The mastoid air cells are clear. There is no evidence of mastoiditis. Skull: There is normal skull morphology. There is an interval resolution of the scalp hematoma in the posterior parietal region. IMPRESSION: 1. There is no evidence of an acute territorial infarct or hemorrhage. 2. There are age-related brain parenchymal involutional changes and bilateral hemispheric chronic microvascular ischemic changes, unchanged. 3. There is an interval resolution of the scalp hematoma in the posterior parietal region. 4. Clinical correlation is warranted. Electronically signed by George Farley 01-29-2025 08:54 AM Brain MRI 01/29/25 09:09 MR brain seizure wo/w con CLINICAL HISTORY: Seizure like activity COMPARISON STUDY: Head CT earlier today and MRI of 10/09/2022 FINDINGS: There is motion artifact on some sequences. No restricted diffusion seen to suggest acute infarction. Stable mild diffuse cerebral and cerebellar volume loss. No mass effect, midline shift, or hydrocephalus. There is moderate scattered foci of increased FLAIR signal intensity in the periventricular white matter which is nonspecific, but usually represents chronic small vessel ischemic change. No intracranial hemorrhage seen. No abnormal enhancement seen. IMPRESSION: 1. No evidence of acute infarction. 2. Moderate chronic small vessel ischemic change. 3. No abnormal enhancement seen. ACT 112: Negative or not required by law. Electronically signed by: Ralph Wooten M.D. 01/29/2025 1:55 PM Venous Doppler Study 01/29/25 09:13 LEFT LOWER EXTREMITY VENOUS DOPPLER CLINICAL HISTORY: Hypoxia; LLE swelling; evaluate for DVT. COMPARISON STUDY: Left lower extremity venous Doppler ultrasound October 11, 2020. TECHNIQUE: Sonography of the deep venous system of the left lower extremity was performed. Compression and augmentation were evaluated. FINDINGS: The left common femoral, superficial femoral and popliteal veins were compressible. Augmentation was normal. Flow was shown within the deep calf vessels. Left calf edema was incidentally noted. Note is made of an elongated left popliteal fluid collection that measures 7.2 x 3.7 x 1.5 cm. This is suggestive of a complex popliteal cyst. IMPRESSION: 1. No evidence of deep venous thrombus within the left lower extremity. 2. 7.2 x 3.7 x 1.5 cm complex left popliteal cyst. ACT 112: Negative or not required by law. Electronically signed by: Jaquan Espinoza M.D. 01/29/2025 2:29 PM Discharge Plan Visit Data Chief Complaint: Seizure Stated Complaint: Seizure ED Provider: Patrick Ram Discharge Problem: Hypoxia, Acute alteration in mental status Patient Disposition: Admitted As Inpatient Condition: Good Discharge Instructions Interventions: ED Discharge Assessment Last Done: 01/29/25 12:19
[2025-01-29 06:37] LABS: Hematocrit (blood only) 36.1 % (37.0-47.0); Hemoglobin 11.7 g/dl (12.0-16.0); Immature Granulocytes # (auto) 0.04 K/uL (0.01-0.20); Immature Granulocytes % (auto) 0.6 %; Mean Corpuscular Hemoglobin 28.7 pg (25.0-34.0); Mean Corpuscular Volume 88.5 fL (80.0-100.0); Platelet Count 283 K/uL (130-400); RDW Standard Deviation 48.5 fL (36.4-46.3); Red Blood Count 4.08 M/uL (4.20-5.40); White Blood Count 6.36 K/ul (4.8-10.8)
[2025-01-29] MEDS: ALBUT/IPRATROP 3MG/0.5MG NEB 3 ML VIAL INH STA (06:42)
[2025-01-29 06:59] LABS: Alanine Aminotransferase 13.0 U/L (7-52); Albumin Globulin Ratio 1.6 (0.9-2); Albumin Level 4.2 gm/dl (3.4-5.0); Alkaline Phosphatase 95.0 U/L (34-104); Anion Gap 8.0 (3-11); Bilirubin,Total 0.6 mg/dl (0.2-1.0); Blood Urea Nitrogen 22.0 mg/dl (6-23); Calcium 8.9 mg/dl (8.6-10.3); Carbon Dioxide 26.0 mmol/L (21-32); Chloride 104.0 mmol/L (98-107); Creatinine Clr Calc Pharmacy 39.1 ml/min; Globulin 2.6 gm/dl (2.5-4.0); Glucose 93.0 mg/dl (70-99(Fasting)); Magnesium 2.0 mg/dl (1.7-2.4); Potassium 3.9 mmol/L (3.5-5.1); Sodium 138.0 mmol/L (136-145); Total Protein 6.8 gm/dl (6.0-8.3)
[2025-01-29 07:12] LABS: INR 1.0 (0.9-1.1); Partial Thromboplastin Time 29 Seconds (21-31); Prothrombin Time 10.4 Seconds (9.0-12.0)
[2025-01-29 07:14] LABS: Thyroid Stimulating Hormone 3.799 uIu/ml (0.300-4.500)
--- NOTE | 2025-01-29 07:23 | XRay Report ---
EXAM: XR chest 1V portable CLINICAL HISTORY: weakness TECHNIQUE: An X-ray image of the chest is obtained in AP projection. 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 FINDINGS: The lungs are clear and well-expanded with no pulmonary infiltrate or pleural effusion. The cardiomediastinal silhouette is within normal limits. No acute osseous abnormality. Bilateral breast implant noted. Cardiac pacemaker noted. IMPRESSION: 1. No acute cardiopulmonary disease. No other new interval abnormality since prior study. Electronically signed by Alexis Dupont 01-29-2025 07:22 AM
[2025-01-29 07:28] LABS: Chlamydia pneumoniae PCR Not Detected (NotDetected); Coronavirus 229E PCR Not Detected (NotDetected); Coronavirus CoV-2 (COVID19)PCR Not Detected (NotDetected); Coronavirus HKU1 PCR Not Detected (NotDetected); Coronavirus NL63 PCR Not Detected (NotDetected); Coronavirus OC43PCR Not Detected (NotDetected); Human Metapneumovirus PCR Not Detected (NotDetected); Parainfluenza Virus 1 PCR Not Detected (NotDetected); Parainfluenza Virus 2 PCR Not Detected (NotDetected); Parainfluenza Virus 3 PCR Not Detected (NotDetected); Parainfluenza Virus 4 PCR Not Detected (NotDetected); Respiratory Syncytial VirusPCR Not Detected (NotDetected); Rhinovirus/Enterovirus PCR Not Detected (NotDetected)
--- NOTE | 2025-01-29 08:14 | History & Physical Report ---
Date of Service January 29, 2025 Assessment & Plan (1) Seizure: (2) Hypoxia: (3) Paroxysmal atrial fibrillation: (4) Swelling of left lower extremity: Plan This patient is an 84-year-old female with known history of seizures who presents on the morning of 01/29 for overnight seizure. Seizure occurred at 4 AM and lasted approximately 44 minutes (per ). She is currently on gabapentin for seizure maintenance, but no other medications for seizures. #Seizure | hypoxia | H/o seizure-like activity Patient has experienced 5 seizures over the past 3 years, all of which have occurred overnight Seizure history per most recent PCP note in Dec 2024: History of multiple seizures in 2020. Recurrence 2022 in the setting of increased psychosocial stressors No antiepileptics (other than gabapentin; continue as above), they are hesitant to add others They have repeatedly declined neurology follow-up unless further recurrence Suspect component of hypoxia as a trigger for seizure-like activity Denies prior h/o sleep apnea Overnight pulse ox study ordered Patient had a prior EEG done in September 2022 which was showed absence of potential epileptogenic activity Last brain MRI in 2022 revealed no acute findings Repeat brain MRI with/without ordered, pending Infectious workup largely negative: No leukocytosis; afebrile CXR without acute finding BioFire negative UA ordered, pending Creatinine kinase ordered to assess for rhabdomyolysis in setting of 45-minute seizure/convulsive activity Lactate, prolactin, and CK levels are all WNL BNP ordered, pending Patient exhibited recurrence of seizure-like activity while in the hospital; Keppra 1500 mg IV x 1 in the ED Neurology consult appreciated for seizure maintenance medication recommendations Keppra 500mg IV BID Continue gabapentin 400mg p.o. 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 BID #HTN Continue metoprolol #GERD Continue PPI #SSS s/p pacemaker Noted Disposition: Obs - admit to PCU telemetry VTE PPx: Eliquis History of Present Illness Chief Complaint: Seizure Primary Care Provider: Alice Azul MD Mrs. Wang is an 84-year-old female with PMH of HTN, paroxysmal atrial fibrillation, mitral regurg, CVD, sick sinus syndrome s/p pacemaker, and seizures. She presented on the morning 01/29 after sustaining a seizure overnight at home. Patient's (Curtis) is at bedside and provides additional history. reports that seizure activity woke her from sleep around 4 AM. times the length of the seizure and reports it was around 44 minutes long. The patient has had 5 seizures in the past 3 years (all of which have occurred overnight). Patient denies prior history of sleep apnea. No supplemental oxygen at baseline or CPAP at night. Initially, they were debating coming into the hospital, but noted that she had a low SpO2 in the 80% range, and decided to call EMS. She denies prior history of DVT/PE; no missed doses of Eliquis in the past week, which she takes for history of A-fib. No tongue biting. No loss of urinary continence. No sick contacts. Patient did not take any of her regular morning medications today. Patient is unaware what has caused her prior seizures, and does not believe there is a clear trigger. She denies prior history of strokes. Per , no strokelike symptoms such as slurred speech, facial droop, unilateral deficits. Patient's only symptom at this time is feeling lightheadedness as well as "pressure" behind her eyes. No changes in vision (no blurry vision, double vision, or photophobia). Patient reports she recently saw Dr. Kingston (ophthalmology) 1 month ago for an eye appointment; she does not wear contacts at baseline, but does wear glasses as needed for vision problems. She also previously saw Dr. Mccarthy (neurology) for her seizures. She currently takes gabapentin for seizure maintenance; was previously on Lamictal, but reported side effects. Patient is a current everyday tobacco cigarette smoker (5 cigarettes/day). A&O x 3 at time of admission. Patient did have a fall approximately 2 months ago, but denies any recent injuries to the head or neck. Patient is mildly hypertensive at 143/56 at time of admission; SpO2 98% on 2L NC; vitals otherwise stable. ED course: Albuterol 3 mL Solu-Medrol 125 mg IV Keppra 1500 mg IV ROS: Patient endorses lightheadedness, and pressure behind the eyes. Patient denies fever, chills, night sweats, headache, slurred speech, facial droop, unilateral deficits, tinnitus, changes in vision, chest pain, chest palpitations, SOB, orthopnea, pleuritic CP, cough, hemoptysis, abdominal pain, N/V/D, burning with urination, history of UTIs, changes in urinary bowel habits, or numbness or tingling in the arms or legs. Allergies Allergy/AdvReac Type Severity Reaction Status Date / Time Sulfa (Sulfonamide Allergy Intermediate Hives, Rash Verified 01/25/25 13:50 Antibiotics) Home Medications Medication Instructions Recorded Confirmed Type cholecalciferol (vitamin D3) 125 5,000 units PO HS 01/06/19 01/29/25 History mcg (5,000 unit) capsule vitamins A,C,P-qwob-xxyxlp 4,296 1 cap PO BID 06/24/20 01/29/25 History mcg-226 mg-90 mg capsule (PreserVision AREDS) betamethasone dipropionate 0.05 % 1 applic topical BID PRN Skin 09/27/22 01/29/25 History topical cream Irritation fluocinonide 0.05 % topical cream 1 applic topical UD PRN Skin 09/27/22 01/29/25 History Irritation tavaborole 5 % topical solution 1 applic topical DAILY PRN toenail 02/11/23 01/29/25 History with applicator fungus Wheeled Walker #1 ea 08/12/23 01/25/25 Rx lorazepam 0.5 mg tablet (Ativan) 0.5 mg PO DAILY PRN Anxiety #30 01/07/24 01/29/25 Rx tabs acetaminophen 325 mg tablet 650 mg PO Q6H PRN Pain 01/14/24 01/29/25 History apixaban 2.5 mg tablet (Eliquis) 2.5 mg PO BID 07/20/24 01/29/25 History carboxymethylcellulose sodium 0.25 1 drp ophthalmic (eye) BID 07/20/24 01/29/25 History % eye drops (TheraTears) metoprolol succinate 25 mg 25 mg PO QAM 07/20/24 01/29/25 History tablet,extended release 24 hr sertraline 100 mg tablet (Zoloft) 100 mg PO QAM 07/20/24 01/29/25 History gabapentin 400 mg capsule 400 mg PO BID #180 caps 07/21/24 01/29/25 Rx (Neurontin) ondansetron 4 mg disintegrating 4 mg PO Q8 PRN nausea #20 tabs 12/09/24 01/29/25 Rx tablet omeprazole 20 mg capsule,delayed 20 mg PO DAILY #90 caps 12/17/24 01/29/25 Rx release rosuvastatin 5 mg tablet 5 mg PO QAM #90 tabs 12/29/24 01/29/25 Rx ketoconazole 2 % shampoo 1 applic topical Q14D PRN Other 01/29/25 01/29/25 History Past Med/Surg History Problem List (Updated 01/29/25 @ 17:16 by Gregg Weems MD) Nocturnal seizures Acute alteration in mental status (Acute) Hypoxia (Acute) Swelling of left lower extremity Hypoxia Seizure Adenomatous rectal polyp Seizures Chest skin lesion Posterior tibial tendon dysfunction Acquired valgus deformity knee Acquired valgus deformity of foot Pain of left heel Hammertoe, bilateral Bloating Change in bowel habits Impacted cerumen Lightheadedness Periprosthetic fracture around other internal prosthetic joint, initial encounter (Acute ~02/03/24) Comminuted periprosthetic fracture through the greater trochanter of the right proximal femur Generalized anxiety disorder 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 Right rib fracture (04/16/23) from a fall Venous insufficiency Chronic anticoagulation Cervical facet joint syndrome resolved per pt and Cervicalgia resolved per pt and Dry skin dermatitis Tobacco use 5 cigs/day Rhinitis resolved Rhinorrhea resolved Sneezing with watery eyes resolved Pacemaker Skin pruritus Neck muscle spasm SCM, splenius capitis Sternocleidomastoid muscle tenderness hx-RIGHT Strain of sternocleidomastoid muscle hx-RIGHT Subclinical hypothyroidism Degenerative arthritis of knee, bilateral Seizure-like activity (Acute) Fatigue Gait apraxia Osteoporosis Sick sinus syndrome Tremor hands-when anxious-stable per pt and Cerebrovascular disease Memory loss (Acute) Moderate to severe mitral regurgitation Paroxysmal atrial fibrillation Arthritis Dyslipidemia HTN (hypertension) (Acute) controlled, stable per pt Medical History Bronchitis Hearing loss no hearing aids Cerebrovascular disease pt denies Chronic anticoagulation Eliquis - [facility] Loose stools Reason for procedure 07/27/24 Nausea Reason for procedure 07/27/24 Loss of appetite Reason for procedure 07/27/24 Venous insufficiency Tremor "its not a lot" hands - as per patients Subclinical hypothyroidism pt denies Osteoporosis Moderate to severe mitral regurgitation [facility] [place] Cardiology Lightheadedness "I do get lightheaded and has caused me to fall. It's just a balance issue" most recent last month, no ER visit for "this one" Gait apraxia Walker Memory loss "not anything more for any other 84yo." Hypertension ELIZABET (generalized anxiety disorder) Atrial fibrillation Eliquis - [facility] [place] Cardiology Dyslipidemia PONV (postoperative nausea and vomiting) with 08/23/23 procedure - "nausea, unable to eat, diarrhea for three weeks after" as per patient History of blood transfusion during delivery in 1950s with placenta previa History of seizures 05/2019 and 07/2022, "had multiple tests and no findings on MRI"-denies jayla tional seizures - did follow with [facility] [place] Neurology GERD (gastroesophageal reflux disease) controlled, stable per pt Pacemaker Medtronic, follows with CT cardiology - last check 05/2024 Breast mass right-cyst yrs ago; s/p excision Surgical History History of arthroplasty of right knee (08/2023) History of esophagogastroduodenoscopy (EGD) Hx of colonoscopy Hx of squamous cell carcinoma excision left shoulder Hx of breast augmentation age 33 H/O melanoma excision right leg Status post surgical removal of malignant neoplasm of skin Basal cell & squamous cell H/O hand surgery tendon transfer right hand S/P hysterectomy with oophorectomy Status post tubal ligation S/P tonsillectomy S/P section x2 S/P dilatation and curettage S/P appendectomy during a S/P cardiac pacemaker procedure age 73, [facility]; f/u dr. gongora History of bilateral hip replacements Family History Mother Alzheimer disease Breast cancer Hypertension Anxiety Stroke Father Anxiety Brother Anxiety Throat cancer Denies family history of Ovarian cancer Prostate cancer Myocardial infarction Social History Smoking Status: Current every day smoker Tobacco Type: Cigarettes Age Started Using Tobacco: 20; packs per day: 0.25; Cigarettes Per Day: 5; Second Hand Exposure: No; Do You Dip or Chew Tobacco: No; Hx Alcohol Use: Yes Alcohol type: wine Alcohol Intake Frequency: 4 or More x per/Week Alcohol Intake Frequency Comment: 1 drink per day Hx Substance Use: No Preferred Language: Citizen Of [place] Communication Ability: Effective Communication Tools: Lip Movement/Reading Visual Impairment: Limited Hearing Ability: Hard of Hearing 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 And Chemical Coordinator Required: No Beliefs That Will Affect Care: None marital status: Current Living Situation: Spouse Current Living Situation Comment: Lives with current occupational status: retired 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, 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 How many Children do You have: 3 Other Information That Helps Us Care for You: No Feels Safe at Home: Yes Safety Concerns: Feels Safe At This Time Childhood Exposure to Second-Hand Smoke: Yes Diet: regular during the past year weight has: remained stable Dental Care, Regularly: Yes Physical Activity Frequency: Daily Seatbelt Use: always Sunscreen Use: Yes (sometimes ) Assistive Devices: Cane and Walker Assistive Devices Comment: pt uses a walker or cane she reports Review of Systems Review of Systems: See HPI above Physical Exam Physical Exam: General: no acute distress; patient is lethargic and snoring loudly upon entering the room; at bedside; non-toxic appearing; frail-appearing; easily arousable with light touch; cooperative; conversational; SpO2 94% on 2L NC HEENT: Posterior scalp hematoma; she does exhibit a superficial, blotchy rash on her right cheek (reports from scratching); patient has potential yellow bruising beneath the left eye; PERRLA with EOMs intact; vision appears to be intact; 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; patient demonstrates ability to smile, frown, lift eyebrows without unilateral deficits; patient demonstrates ability to protrude and wiggle tongue bilaterally without unilateral deficits Neck: supple; trachea midline Skin: warm, dry without signs of tenting; no cyanosis; no rashes, bruising, lesions, or erythema noted CV: chest wall NTP; RRR; S1/S2 normal; no murmurs/rubs/gallops; pulses intact and symmetric at radial, DP, and PT Lungs: no acute respiratory distress; symmetrical chest wall expansion; clear breath sounds across all lung patiño w/o adventitious sounds; no wheezing; no coughing ABD: Soft, NTP; BS present; no rebound/guarding; no distention MSK: no tics or fasciculations; +2 pitting edema lower extremity bilaterally, nonerythematous; however, patient's left calf is about twice the size of the right; 5/5 public space attendant strength bilaterally Neuro: A&Ox3; normal mood and affect; fluent speech; sensation intact and symmetric in the UE's and LE's bilateral Results & Data Results & Data Vital Signs (Past 12 Hours) Vital Signs Temp Pulse Pulse Resp BP Pulse Ox O2 Del Method 01/29/25 07:32 63 15 164/68 H 94 Nasal Cannula 01/29/25 07:00 62 15 94 01/29/25 07:00 146/66 H 01/29/25 07:00 146/66 H 01/29/25 07:00 146/66 H 01/29/25 06:51 168/72 H 01/29/25 06:51 168/72 H 01/29/25 06:51 60 13 168/72 H 97 Nasal Cannula 01/29/25 06:24 77 21 97 Nasal Cannula 01/29/25 06:03 66 21 96 Nasal Cannula 01/29/25 06:03 87 L Nasal Cannula 01/29/25 06:03 36.8 C 84 21 177/87 H 97 Room Air 01/29/25 06:02 90 O2 Flow Rate 01/29/25 07:32 2 01/29/25 07:00 01/29/25 07:00 01/29/25 07:00 01/29/25 07:00 01/29/25 06:51 01/29/25 06:51 01/29/25 06:51 2 01/29/25 06:24 3 01/29/25 06:03 3 01/29/25 06:03 0 01/29/25 06:03 01/29/25 06:02 Laboratory Results Abnormal lab results 01/29/25 01/29/25 Range/Units 06:17 06:50 RBC 4.08 L (4.20-5.40) M/uL Hgb 11.7 L (12.0-16.0) g/dl Hct 36.1 L (37.0-47.0) % RDW Std Deviation 48.5 H (36.4-46.3) fL RDW Coeff of Cecilia 15.1 H (11.5-14.5) % MPV 8.9 L (9.4-12.4) fL Lymph # (Auto) 0.86 L (1.20-3.40) K/uL [place] # (Auto) 0.77 H (0.11-0.59) K/uL BUN/Creatinine Ratio 23.7 H (10-20) POC Glucose 100 H (70-99) mg/dl Diagnostic Findings Chest X-Ray 01/29/25 06:22 EXAM: XR chest 1V portable CLINICAL HISTORY: weakness TECHNIQUE: An X-ray image of the chest is obtained in AP projection. 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 FINDINGS: The lungs are clear and well-expanded with no pulmonary infiltrate or pleural effusion. The cardiomediastinal silhouette is within normal limits. No acute osseous abnormality. Bilateral breast implant noted. Cardiac pacemaker noted. IMPRESSION: 1. No acute cardiopulmonary disease. No other new interval abnormality since prior study. Electronically signed by Alexis Dupont 01-29-2025 07:22 AM ECG Additional Comments: ECG revealed atrial paced rhythm at 70 bpm; QTc 447 Code Status & VTE Plan Code Status Full code VTE Prophylaxis Plan VTE Prophylaxis will be ordered: Yes Supervising Physician Co-Signing Physician Notes Attending Attestation & Admit Note: Pt seen/examined, chart reviewed, care plan d/w TUNDE Hilliard. I agree w/ the boyle components of his admission documentation. 84yo female with HTN, paroxysmal atrial fibrillation, mitral regurg, sick sinus syndrome s/p pacemaker, and seizures. In the past all seizures have been at night-time. She presented to [facility] ER after her noted at least 40 minutes of seizure activity in the middle of the night. She did not have any tonic-clonic movements of the arms or legs, but was having rhythmic movements of her mouth and facial muscles. She was not awake during the event. After the event she returned to sleep. ?tongue bite reyna on tip of left tongue? Patient's reports she "fell out of bed" about 2 weeks ago. He thinks that she hit her head during that encounter. During the visit the patient c/o pressure sensation behind both eyes. PMH, PSH, allergies, meds, soch - reviewed VSS, afebrile gen - NAD, lying comfortably in bed face - resolving bruise (yellow color) under the left eye; erythematous patches on right cheek HENT - MMM; tongue bite reyna distal tongue on left neck - no JVD heart - RRR, s1 s2 lungs - CTA b/l abd - soft NT ND BS+ ext - no edema, pulses 2+ b/l feet neuro - strength 5/5 x 4 exts labs reviewed imaging reviewed A/P: 1. nocturnal seizures, with prior history of same 2. PAF 3. HTN 4. pacemaker status -neuro consult -s/p keppra load in ER; cont keppra 500mg BID; cont gabapentin as previous -MRI brain w/ and w/o contrast -overnight oximetry study - r/o hypoxia induced seizures -cont Eliquis -other recs per neuro -recent fall at home - etiology? check a B12 level am Seth Solis MD PG Care Time/CCT Total # of Minutes Spent Total Time Spent with Patient: Total time spent is greater than 50% in coordination of care (as documented) at patient's floor/unit and/or counseling patient: Coding [place] [address] INT INP/OBS CARE 3/75MIN Patient Type Established Medical Decision Making High Complexity Diagnoses Seizure R56.9 Hypoxia R09.02 Paroxysmal atrial fibrillation I48.0 Swelling of left lower extremity M79.89
--- NOTE | 2025-01-29 08:54 | CT Scan Report ---
EXAM: CT head/brain wo con CLINICAL HISTORY: Seizure. TECHNIQUE: Axial non-contrast CT scan of the brain was performed from the skull base to the high parietal region. One of the following dose reduction techniques was utilized for this exam: automated exposure control, adjustment of the mA and/or kV according to patient size, or use of iterative reconstruction. CTDI: 38.95 mGy, DLP: 625.80 mGycm. COMPARISON: Comparison is made with prior CT head/brain without contrast, dated 09/05/2024. FINDINGS: Brain Parenchyma: There is ra edemonstration of global brain parenchymal involutional changes, which are stable. Confluent hypodensities are redemonstrated involving the deep periventricular white matter in the bilateral cerebral hemispheres, suggesting chronic microvascular ischemic changes, unchanged. The cerebellum and brainstem appear grossly unremarkable. There is no evidence of territorial infarct, intraparenchymal hemorrhage, mass effect, or midline shift. Ventricular System: The ventricles are prominent. There is no evidence of hydrocephalus. Subarachnoid Spaces: Unchanged enlarged subarachnoid spaces are present in the bilateral frontal and parietal regions. There is no evidence of subarachnoid hemorrhage or extra-axial fluid collections. Orbits: The optic nerves appear tortuous on both sides, with a coexistent partially empty sella, which is stable. The visualized globes and extraocular muscles appear unremarkable. Sinuses: The paranasal sinuses are clear. There is no evidence of sinusitis or mucosal thickening. Mastoid Air Cells: The mastoid air cells are clear. There is no evidence of mastoiditis. Skull: There is normal skull morphology. There is an interval resolution of the scalp hematoma in the posterior parietal region. IMPRESSION: 1. There is no evidence of an acute territorial infarct or hemorrhage. 2. There are age-related brain parenchymal involutional changes and bilateral hemispheric chronic microvascular ischemic changes, unchanged. 3. There is an interval resolution of the scalp hematoma in the posterior parietal region. 4. Clinical correlation is warranted. Electronically signed by George Farley 01-29-2025 08:54 AM
[2025-01-29 10:03] LABS: Creatine Kinase 113.0 U/L (26-192)
[2025-01-29] MEDS ORDERED: LORazepam Inj 2 MG in SYRINGE 1 ML IV PRN (12:19)
[2025-01-29] MEDS ORDERED: TRIAMCINOLONE ACET 0.5% CR 15 GM TUBE TOP PRN (13:03)
[2025-01-29] MEDS: ONDANSETRON INJ 2 MG/ML 2 ML VIAL IV PRN (13:04)
[2025-01-29] MEDS: APIXABAN 2.5 MG TAB PO SCH (13:28)
[2025-01-29] MEDS: GADOBUTROL 65ML VIAL IV ONE (13:29)
--- NOTE | 2025-01-29 13:38 | Electrocardiogram Report ---
Test Reason : Blood Pressure : */* mmHG Vent. Rate : 70 BPM Atrial Rate : 70 BPM P-R Int : 198 ms QRS Dur : 90 ms QT Int : 414 ms P-R-T Axes : 69 -38 35 degrees QTcB Int : 447 ms Atrial-paced rhythm Left axis deviation Moderate voltage criteria for LVH, may be normal variant ( R in aVL ) Possible Anteroseptal infarct (cited on or before 11-Jan-2024) Abnormal ECG When compared with ECG of 11-Jan-2024 13:29, Electronic atrial pacemaker has replaced Sinus rhythm Confirmed by Matt Knox ([id number]) on 01/29/2025 1:37:51 PM Referred By: REFERRED SELF Confirmed By: Matt Knox
--- NOTE | 2025-01-29 13:57 | Magnetic Resonance Report ---
MR brain seizure wo/w con CLINICAL HISTORY: Seizure like activity COMPARISON STUDY: Head CT earlier today and MRI of 10/09/2022 FINDINGS: There is motion artifact on some sequences. No restricted diffusion seen to suggest acute i nfarction. Stable mild diffuse cerebral and cerebellar volume loss. No mass effect, midline shift, or hydrocephalus. There is moderate scattered foci of increased FLAIR signal intensity in the periventr icular white matter which is nonspecific, but usually represents chronic small vessel ischemic change . No intracranial hemorrhage seen. No abnormal enhancement seen. IMPRESSION: 1. No evidence of acute infarction. 2. Moderate chronic small vessel ischemic change. 3. No abnormal enhancement seen. ACT 112: Negative or not required by law. Electronically signed by: Ralph Wooten M.D. 01/29/2025 1:55 PM
--- NOTE | 2025-01-29 14:31 | Ultrasound Report ---
LEFT LOWER EXTREMITY VENOUS DOPPLER CLINICAL HISTORY: Hypoxia; LLE swelling; evaluate for DVT. COMPARISON STUDY: Left lower extremity venous Doppler ultrasound October 11, 2020. TECHNIQUE: Sonography of the deep venous system of the left lower extremity was performed. Compressi on and augmentation were evaluated. FINDINGS: The left common femoral, superficial femoral and popliteal veins were compressible. Augmen tation was normal. Flow was shown within the deep calf vessels. Left calf edema was incidentally note d. Note is made of an elongated left popliteal fluid collection that measures 7.2 x 3.7 x 1.5 cm. Thi s is suggestive of a complex popliteal cyst. IMPRESSION: 1. No evidence of deep venous thrombus within the left lower extremity. 2. 7.2 x 3.7 x 1.5 cm complex left popliteal cyst. ACT 112: Negative or not required by law. Electronically signed by: Jaquan Espinoza M.D. 01/29/2025 2:29 PM
--- NOTE | 2025-01-29 17:22 | Neurology Consultation ---
Date of Consultation January 29, 2025 Assessment & Plan (1) Nocturnal seizures: Plan 84-year-old female with a history of recurrent nocturnal seizures. She has had several normal EEGs in the past. 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 She does have generalized atrophy and chronic small vessel ischemic disease, no obvious seizure focus although developmental venous anomalies can sometimes be associated with seizures. I note that she does not have an associated cavernoma, however. Continue with Keppra 500 mg IV as ordered, may switch to p.o., same dosage, when medically appropriate. I would not recommend another routine EEG at this time. I may consider obtaining ambulatory EEG in the outpatient setting. It is possible that patient's seizures could be related to nocturnal hypoxemia, overnight pulse oximetry ordered. However, I would recommend that she continue with Keppra as ordered. Patient is , lives with her spouse, she does not drive. Patient may follow-up with me in neurology clinic in 2 to 3 weeks after discharge. Please call with any questions. History of Present Illness Reason for Consultation: Seizure Requesting Physician: Babak Attending Physician: Seth Solis MD History of Present Illness The patient is an 84-year-old female who is known to me, I had last seen her in during a hospitalization in November 2020 for further assessment of nocturnal seizures. She had a previous event in June 2020 and had a normal EEG at that time. She had another normal routine EEG November 24, 2020. She was seen again in our clinic in September 2022 for updated evaluation. An EEG completed September 26, 2022 was normal. Nonetheless, a trial of lamotrigine was recommended although she indicates that she never took this medication given concern over possible side effects. She presented to the emergency department earlier this morning after a nocturnal seizure episode. The event was characterized by labored breathing, unresponsiveness, right-sided tongue bite. She is fairly amnestic for the episode that was witnessed by her spouse. He does indicate that she has had 5 very similar seizure-like episodes over the past few years, exclusively nocturnal, during sleep. She is unaware of any family history of epilepsy in any immediate family members. She did have an up-to-date brain MRI completed today that reveals expected senescent change, atrophy, and chronic cerebrovascular disease. No mesial temporal sclerosis, nodular heterotopia, or obvious seizure focus identified. I did independently review these images. 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 Allergies Allergy/AdvReac Type Severity Reaction Status Date / Time Sulfa (Sulfonamide Allergy Intermediate Hives, Rash Verified 01/25/25 13:50 Antibiotics) Home Medications Medication Instructions Recorded Confirmed Type cholecalciferol (vitamin D3) 125 5,000 units PO HS 01/06/19 01/29/25 History mcg (5,000 unit) capsule vitamins A,C,D-zicd-lrcojg 4,296 1 cap PO BID 06/24/20 01/29/25 History mcg-226 mg-90 mg capsule (PreserVision AREDS) betamethasone dipropionate 0.05 % 1 applic topical BID PRN Skin 09/27/2201/20 History topical cream Irritation fluocinonide 0.05 % topical cream 1 applic topical UD PRN Skin 09/27/22 01/29/25 History Irritation tavaborole 5 % topical solution 1 applic topical DAILY PRN toenail 02/11/23 01/29/25 History with applicator fungus Wheeled Walker #1 ea 08/12/23 01/25/25 Rx lorazepam 0.5 mg tablet (Ativan) 0.5 mg PO DAILY PRN Anxiety #30 01/07/24 01/29/25 Rx tabs acetaminophen 325 mg tablet 650 mg PO Q6H PRN Pain 01/14/24 01/29/25 History apixaban 2.5 mg tablet (Eliquis) 2.5 mg PO BID 07/20/24 01/29/25 History carboxymethylcellulose sodium 0.25 1 drp ophthalmic (eye) BID 07/20/24 01/29/25 History % eye drops (TheraTears) metoprolol succinate 25 mg 25 mg PO QAM 07/20/24 01/29/25 History tablet,extended release 24 hr sertraline 100 mg tablet (Zoloft) 100 mg PO QAM 07/20/24 01/29/25 History gabapentin 400 mg capsule 400 mg PO BID #180 caps 07/21/24 01/29/25 Rx (Neurontin) ondansetron 4 mg disintegrating 4 mg PO Q8 PRN nausea #20 tabs 12/09/24 01/29/25 Rx tablet omeprazole 20 mg capsule,delayed 20 mg PO DAILY #90 caps 12/17/24 01/29/25 Rx release rosuvastatin 5 mg tablet 5 mg PO QAM #90 tabs 12/29/24 01/29/25 Rx ketoconazole 2 % shampoo 1 applic topical Q14D PRN Other 01/29/25 01/29/25 History Patient History Medical History Bronchitis Hearing loss no hearing aids Cerebrovascular disease pt denies Chronic anticoagulation Eliquis - [facility] Loose stools Reason for procedure 07/27/24 Nausea Reason for procedure 07/27/24 Loss of appetite Reason for procedure 07/27/24 Venous insufficiency Tremor "its not a lot" hands - as per patients Subclinical hypothyroidism pt denies Osteoporosis Moderate to severe mitral regurgitation [facility] [place] Lightheadedness "I do get lightheaded and has caused me to fall. It's just a balance issue" most recent last month, no ER visit for "this one" Gait apraxia Walker Memory loss "not anything more for any other 84yo." Hypertension ELIZABET (generalized anxiety disorder) Atrial fibrillation Eliquis - [facility] [place] Dyslipidemia PONV (postoperative nausea and vomiting) with 08/23/23 procedure - "nausea, unable to eat, diarrhea for three weeks after" as per patient History of blood transfusion during delivery in 1950s with placenta previa History of seizures 05/2019 and 07/2022, "had multiple tests and no findings on MRI"-denies additional seizures - did follow with [facility] [place] Neurology GERD (gastroesophageal reflux disease) controlled, stable per pt Pacemaker [employer], follows with [facility] - last check 05/2024 Breast mass right-cyst yrs ago; s/p excision Surgical History History of arthroplasty of right knee (08/2023) History of esophagogastroduodenoscopy (EGD) Hx of colonoscopy Hx of squamous cell carcinoma excision left shoulder Hx of breast augmentation age 33 H/O melanoma excision right leg Status post surgical removal of malignant neoplasm of skin Basal cell & squamous cell H/O hand surgery tendon transfer right hand S/P hysterectomy with oophorectomy Status post tubal ligation S/P tonsillectomy S/P section x2 S/P dilatation and curettage S/P appendectomy during a S/P cardiac pacemaker procedure age 73, [facility]; f/u dr. gongora History of bilateral hip replacements Family History Mother Alzheimer disease Breast cancer Hypertension Anxiety Stroke Father Anxiety Brother Anxiety Throat cancer Denies family history of Ovarian cancer Prostate cancer Myocardial infarction Social History Smoking Status: Current every day smoker Tobacco Type: Cigarettes Age Started Using Tobacco: 20; packs per day: 0.25; Cigarettes Per Day: 5; Second Hand Exposure: No; Do You Dip or Chew Tobacco: No; Hx Alcohol Use: Yes Alcohol type: wine Alcohol Intake Frequency: 4 or More x per/Week Alcohol Intake Frequency Comment: 1 drink per day Hx Substance Use: No Preferred Language: Montserratian Communication Ability: Effective Communication Tools: Lip Movement/Reading Visual Impairment: Limited Hearing Ability: Hard of Hearing Mold Filler Plastic Dolls Required: No Beliefs That Will Affect Care: None marital status: Current Living Situation: Spouse Current Living Situation Comment: Lives with current occupational status: retired 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, 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 How many Children do You have: 3 Other Information That Helps Us Care for You: No Feels Safe at Home: Yes Safety Concerns: Feels Safe At This Time Childhood Exposure to Second-Hand Smoke: Yes Diet: regular during the past year weight has: remained stable Dental Care, Regularly: Yes Physical Activity Frequency: Daily Seatbelt Use: always Sunscreen Use: Yes (sometimes ) Assistive Devices: Cane and Walker Assistive Devices Comment: pt uses a walker or cane she reports Review of Systems Constitutional: no fever and no chills Eyes: no blind spots and no diplopia Ear, Nose, Mouth, Throat: no hearing loss Respiratory: no dyspnea Cardiovascular: no palpitations Gastrointestinal: no nausea and no vomiting Genitourinary: no dysuria Musculoskeletal: no myalgia Integumentary: no rash and no lesions Neurologic: as per Subjective / HPI and + headache(s); no localized weakness, no loss of sensation, no lack of coordination, no tremor(s), no abnormal movements and no abnormal speech Psychiatric: no depression and no anxiety Hematologic / Lymphatic: no easy bleeding and no easy bruising Exam (Neuro) Constitutional: well developed; no acute distress Eyes: normal visual patiño by confrontation, PERRL and EOM intact bilaterally; no nystagmus Neurologic: Oriented to:: Person, Place and Time Memory: Short Term Intact and Remote Intact Attention: Span Intact and Concentration Intact Speech Fluency: negative Dysarthria or Dysfluency Speech Aphasia: negative Aphasia Fund of Knowledge: Current Events, Past History and Vocabulary Cranial Nerves: Normal II, III, IV, , V, VII, VIII, IX, X, XI and XII Motor Strength: Normal Lower Extremities and Normal Upper Extremities Muscle Bulk/Involuntary Movements: No Involuntary Movements; negative Muscle Atrophy Sensation: Light Touch Intact, Pain/Temperature Intact and Proprioception Intact Coordination: Normal; negative Limited Balance, Dysdiadochokinesia or Finger- Nose Abnormal Deep Tendon Reflexes: Rt Triceps: 2+, Lt Triceps: 2+, Rt Biceps: 2+, Lt Biceps: 2+, Rt Brachioradialis: 2+, Lt Brachioradialis: 2+, Rt Patellar: 2+, Lt Patellar: 2+, Rt Ankle: 1+ and Lt Ankle: 1+ Special Tests: negative Babinski Present Results & Data Vital Signs (Past 12 Hours) Vital Signs Temp Pulse Pulse Resp BP BP Pulse Ox 01/29/25 15:56 36.2 C L 67 21 138/61 95 01/29/25 14:48 80 01/29/25 14:31 01/29/25 14:27 36.5 C 68 16 143/91 H 98 01/29/25 13:27 64 18 151/72 H 94 01/29/25 11:30 75 15 133/59 L 95 01/29/25 10:15 67 01/29/25 10:06 70 15 153/67 H 92 01/29/25 10:06 68 17 153/67 H 97 01/29/25 09:19 98 01/29/25 09:00 150/78 H 01/29/25 08:30 124/59 L 01/29/25 08:01 90 20 143/56 H 96 01/29/25 07:32 61 16 164/68 H 92 01/29/25 07:32 63 15 164/68 H 94 01/29/25 07:00 62 15 94 01/29/25 07:00 146/66 H 01/29/25 07:00 146/66 H 01/29/25 07:00 146/66 H 01/29/25 06:51 168/72 H 01/29/25 06:51 168/72 H 01/29/25 06:51 60 13 168/72 H 97 01/29/25 06:24 77 21 97 01/29/25 06:03 66 21 96 01/29/25 06:03 87 L 01/29/25 06:03 36.8 C 84 21 177/87 H 97 01/29/25 06:02 90 O2 Del Method O2 Flow Rate 01/29/25 15:56 Nasal Cannula 3 01/29/25 14:48 01/29/25 14:31 Nasal Cannula 3 01/29/25 14:27 Room Air 01/29/25 13:27 Nasal Cannula 3 01/29/25 11:30 Room Air 01/29/25 10:15 01/29/25 10:06 Nasal Cannula 2 01/29/25 10:06 01/29/25 09:19 Nasal Cannula 2 01/29/25 09:00 01/29/25 08:30 01/29/25 08:01 Nasal Cannula 2 01/29/25 07:32 Nasal Cannula 2 01/29/25 07:32 Nasal Cannula 2 01/29/25 07:00 01/29/25 07:00 01/29/25 07:00 01/29/25 07:00 01/29/25 06:51 01/29/25 06:51 01/29/25 06:51 Nasal Cannula 2 01/29/25 06:24 Nasal Cannula 3 01/29/25 06:03 Nasal Cannula 3 01/29/25 06:03 Nasal Cannula 0 01/29/25 06:03 Room Air 01/29/25 06:02 Laboratory Results WBC 6.36, hemoglobin 11.7, platelet count 283, sodium 138, potassium 3.9, creatinine 0.93, glucose 93, calcium 8.9, magnesium 2.0, TSH 3.799, prolactin 16.19 Diagnostic Findings Electrocardiogram, atrial paced rhythm, 70 bpm Coding Level of Care Code 63222 INT INP/OBS CARE 3/75MIN Diagnoses Nocturnal seizures R56.9 Time Spent (min) 80 Comment Total time includes patient contact, chart review, counseling, note preparation
[2025-01-29] MEDS: ARTIFICIAL TEARS OP SCH (19:50)
[2025-01-29] MEDS: GABAPENTIN 400 MG CAP PO SCH (19:50)
[2025-01-29] MEDS: ACETAMINOPHEN 325 MG TAB PO PRN (19:59)
[2025-01-29] MEDS: LORazepam 0.5 MG TAB PO PRN (20:00)
[2025-01-29] MEDS: ONDANSETRON 4 MG OD TAB PO PRN (20:07)
[2025-01-30 06:21] LABS: Hematocrit (blood only) 31.6 % (37.0-47.0); Hemoglobin 10.5 g/dl (12.0-16.0); Immature Granulocytes # (auto) 0.03 K/uL (0.01-0.20); Immature Granulocytes % (auto) 0.4 %; Mean Corpuscular Hemoglobin 28.8 pg (25.0-34.0); Mean Corpuscular Volume 86.6 fL (80.0-100.0); Platelet Count 232 K/uL (130-400); RDW Standard Deviation 47.7 fL (36.4-46.3); Red Blood Count 3.65 M/uL (4.20-5.40); White Blood Count 7.15 K/ul (4.8-10.8)
[2025-01-30 06:54] LABS: Anion Gap 5.0 (3-11); Blood Urea Nitrogen 18.0 mg/dl (6-23); Calcium 8.5 mg/dl (8.6-10.3); Carbon Dioxide 24.0 mmol/L (21-32); Chloride 109.0 mmol/L (98-107); Creatinine Clr Calc Pharmacy 47.8 ml/min; Glucose 83.0 mg/dl (70-99(Fasting)); Potassium 4.3 mmol/L (3.5-5.1); Sodium 138.0 mmol/L (136-145)
[2025-01-30 07:53] VITALS: TEMP 98.2; O2SAT 98
[2025-01-30] MEDS: SERTRALINE HCL 100 MG TABLET PO SCH (08:59)
[2025-01-30] MEDS: METOPROLOL SUCC 25MG EXT REL TAB PO SCH (08:59)
[2025-01-30] MEDS: ROSUVASTATIN CALCIUM 5 MG TAB PO SCH (08:59)
--- NOTE | 2025-01-30 11:50 | Discharge Summary ---
Discharge Summary Date of Service January 30, 2025 Principal Dx & Hospital Course #1 = Principal Diagnosis (1) Seizure: (2) Hypoxia: (3) Paroxysmal atrial fibrillation: (4) Swelling of left lower extremity: Plan This patient is an 84-year-old female with known history of seizures who presents on the morning of 01/29 for overnight seizure. Seizure occurred at 4 AM and lasted approximately 44 minutes (per ). She is currently on gabapentin for seizure maintenance, but no other medications for seizures. #Seizure | hypoxia | H/o seizure-like activity Patient has experienced 5 seizures over the past 3 years, all of which have occurred overnight Patient exhibited recurrence of seizure-like activity while in the hospital; Keppra 1500 mg IV x 1 in the ED Seizure history per most recent PCP note in Dec 2024: History of multiple seizures in 2020. Recurrence 2022 in the setting of increased psychosocial stressors No antiepileptics (other than gabapentin; continue as above), they are hesitant to add others They have repeatedly declined neurology follow-up unless further recurrence Brain MRI revealed no evidence of acute infarct or stroke Patient had a prior EEG done in September 2022 which was showed absence of potential epileptogenic activity Overnight pulse oximetry study on 01/30 on RA revealed the followin desaturation episodes Low SpO2 of 73%; mean SpO2 of 92% Suspect hypoxia is the primary trigger for patient's seizure-like activity Will plan to send patient home on supplemental oxygen 2L NC at bedtime Infectious workup largely negative: No leukocytosis; afebrile CXR without acute finding BioFire negative UA ordered, pending Lactate, prolactin, and CK levels are all WNL Neurology consult appreciated for seizure maintenance medication recommendations Initiate Keppra 500 mg p.o. BID on discharge Continue gabapentin 400mg p.o. BID Patient will need to follow-up with neurology in the next 2 to 3 weeks May consider an ambulatory EEG as an outpatient #Paroxysmal atrial fibrillation Continue Eliquis 2.5 mg p.o. BID #HTN Continue metoprolol #GERD Continue PPI #SSS s/p pacemaker Noted Day of discharge 01/30: Patient is mildly hypertensive at 145/80; vitals otherwise stable; SpO2 98% on RA. Mrs. Wang reports she slept well last night. No recurrence of seizures overnight. She is having no respiratory distress this morning. She is happy to report that the pressure behind her eyes has resolved. No headaches. She is otherwise asymptomatic at this time, and is eager to go home if possible. ROS: Patient endorses ongoing diarrhea (she plans to follow-up with colorectal surgery for an inverted polyp). Patient denies fevers overnight, chills, night sweats, slurred speech, facial droop, unilateral deficits, headache, changes in vision, tinnitus, chest pain, SOB, pleuritic CP, cough, abdominal pain, N/V, or numbness or tingling arms or legs. Disposition: Discharge home with supplemental oxygen (2L NC) to be used at bedtime Notes For Next Care Provider Suspect that patient's recurrent seizures are due to nocturnal hypoxia. Sending patient home on supplemental oxygen 2L NC at bedtime. Patient require follow-up with neurology in the next 2 to 3 weeks. Also recommend that patient be set up for a formal sleep study as an outpatient. New prescription on discharge: Keppra 500 mg p.o. twice daily Please monitor Keppra levels as an outpatient if she develops altered clearance or renal impairment. Admission HPI Per Admitting Provider Mrs. Wang is an 84-year-old female with PMH of HTN, paroxysmal atrial fibrillation, mitral regurg, CVD, sick sinus syndrome s/p pacemaker, and seizures. She presented on the morning 01/29 after sustaining a seizure overnight at home. Patient's (Curtis) is at bedside and provides additional history. reports that seizure activity woke her from sleep around 4 AM. times the length of the seizure and reports it was around 44 minutes long. The patient has had 5 seizures in the past 3 years (all of which have occurred overnight). Patient denies prior history of sleep apnea. No supplemental oxygen at baseline or CPAP at night. Initially, they were debating coming into the hospital, but noted that she had a low SpO2 in the 80% range, and decided to call EMS. She denies prior history of DVT/PE; no missed doses of Eliquis in the past week, which she takes for history of A-fib. No tongue biting. No loss of urinary continence. No sick contacts. Patient did not take any of her regular morning medications today. Patient is unaware what has caused her prior seizures, and does not believe there is a clear trigger. She denies prior history of strokes. Per , no strokelike symptoms such as slurred speech, facial droop, unilateral deficits. Patient's only symptom at this time is feeling lightheadedness as well as "pressure" behind her eyes. No changes in vision (no blurry vision, double vision, or photophobia). Patient reports she recently saw Dr. Kingston (ophthalmology) 1 month ago for an eye appointment; she does not wear contacts at baseline, but does wear glasses as needed for vision problems. She also previously saw Dr. Mccarthy (neurology) for her seizures. She currently takes gabapentin for seizure maintenance; was previously on Lamictal, but reported side effects. Patient is a current everyday tobacco cigarette smoker (5 cigarettes/day). A&O x 3 at time of admission. Patient did have a fall approximately 2 months ago, but denies any recent injuries to the head or neck. Patient is mildly hypertensive at 143/56 at time of admission; SpO2 98% on 2L NC; vitals otherwise stable. ED course: Albuterol 3 mL Solu-Medrol 125 mg IV Keppra 1500 mg IV ROS: Patient endorses lightheadedness, and pressure behind the eyes. Patient denies fever, chills, night sweats, headache, slurred speech, facial droop, unilateral deficits, tinnitus, changes in vision, chest pain, chest palpitations, SOB, orthopnea, pleuritic CP, cough, hemoptysis, abdominal pain, N/V/D, burning with urination, history of UTIs, changes in urinary bowel habits, or numbness or tingling in the arms or legs. 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; patient demonstrates ability to smile, frown, lift eyebrows without unilateral deficits; patient demonstrates ability to protrude and wiggle tongue bilaterally without unilateral deficits Neck: supple; trachea midline Skin: warm, dry without signs of tenting; no cyanosis; no rashes, bruising, lesions, or erythema noted CV: chest wall NTP; RRR; S1/S2 normal; no murmurs/rubs/gallops; pulses intact and symmetric at radial, DP, and PT Lungs: no acute respiratory distress; symmetrical chest wall expansion; clear breath sounds across all lung patiño w/o adventitious sounds; no wheezing; no coughing ABD: Soft, NTP; BS present; no rebound/guarding; no distention MSK: no tics or fasciculations; +2 pitting edema lower extremity bilaterally, nonerythematous; however, patient's left calf is about twice the size of the right; 5/5 shovel logger strength bilaterally Neuro: A&Ox3; normal mood and affect; fluent speech; sensation intact and symmetric in the UE's and LE's bilateral Discharge Exam General: no acute distress; pleasant affect; awake and oriented; at bedside; SpO2 98% on RA HEENT: Posterior scalp hematoma; she does exhibit a superficial, blotchy rash on her right cheek (reports from scratching); patient has potential yellow bruising beneath the left eye; PERRLA with EOMs intact; vision appears to be intact; 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; patient demonstrates ability to smile, frown, lift eyebrows without unilateral deficits; patient demonstrates ability to protrude and wiggle tongue bilaterally without unilateral deficits Neck: supple; trachea midline Skin: warm, dry without signs of tenting; no cyanosis; no rashes, bruising, lesions, or erythema noted CV: chest wall NTP; RRR; pulses intact and symmetric at radial, DP, and PT Lungs: no acute respiratory distress; symmetrical chest wall expansion; clear breath sounds across all lung patiño w/o adventitious sounds; no wheezing; no coughing ABD: Soft, NTP; BS present; no rebound/guarding; no distention MSK: no tics or fasciculations; 5/5 shovel logger strength bilaterally Neuro: A&Ox3; normal mood and affect; fluent speech; sensation intact and symmetric in the UE's and LE's bilateral Discharge Plan Discharge Items Patient Disposition: Home - Self-Care Reason For Visit: Seizure Discharge Diagnosis: Seizure, nocturnal hypoxia Condition on Discharge: Good Activity: Resume your previous activity Non-emergency contact: Primary Care Provider and Neurologist Call non-emergency contact if: you have any medication questions and your symptoms worsen Follow-up/Referrals: Alice Azul MD [Primary Care Provider] - 02/11/25 8:30 am (PCP follow up 02/11 @ 8:30am) Diet: Regular Addtl Attending Provider Instructions: You are hospitalized at [facility] from 01/29 for 01/30 after sustaining a seizure overnight at home. You reported that you have had prior seizures (5 in the past 3 years) which have all occurred overnight. While in the hospital, you had a full workup for seizure. Your blood work was reassuring (no elevation of lactate, prolactin, or creatinine kinase levels to indicate severe side effects of a seizure). Additionally a brain MRI was obtained, which did not reveal any acute intracranial abnormalities; no strokes. You were examined by our neurology team, who do not feel that you need to go undergo an additional EEG at this time, given you have had EEGs in the past that were normal. However, you should not be considered for an ambulatory EEG in the outpatient setting. While staying at [facility] overnight, you had a continuous pulse oximetry study performed. This study looks at oxygen saturation while you are sleeping. Overnight on 01/29, you had "49 desaturation events", which occur when your oxygen saturation dropped by 3% for more than 30 seconds, or your oxygen saturation is less than 89%. At 1 point, your oxygen saturation dropped to 73%. Mean oxygen saturation overnight 92%. It is suspected that hypoxia (or low oxygen saturation) is a potential trigger for your seizures. For this reason, we plan to send you home on supplemental oxygen to use at bedtime. Please wear a nasal cannula overnight, and use 2 L via nasal cannula while sleeping. We also recommend that you follow-up with your PCP in the next 7 to 10 days for a transitional care appointment, with the plan to set up a formal sleep study as an outpatient to assess for sleep apnea. For these reasons, we feel that you are safe to return home at this time. New prescription on discharge: - Levetiracetam ("Keppra") 500 mg tablets twice daily Keppra is a medication taken to prevent recurrence of seizures. Please see attached pamphlet for possible side effects. If you develop any new or worsening symptoms, such as recurrence of seizures, fever, chills, night sweats, difficulty breathing, cough, or respiratory distress, please return to the emergency department immediately. It was a pleasure take care of you. Please reach out with any questions or concerns. Sincerely, The Hospital medicine team at [facility] Pending Studies at Discharge: No Stand-Alone Forms: My [facility] Medications and DC Order Prescriptions: New levetiracetam [Keppra] 500 mg tablet 500 mg PO BID 30 Days Qty: 60 0RF Rx Instructions: Take 1 tablet by mouth twice daily (DME) Oxygen Home Liters Per Minute See Rx Instructions .Route Qty: 1 0RF Rx Instructions: As directed Continued (DME) Wheeled Walker Misc See Rx Instructions .MEDSUPPLY Qty: 1 0RF Rx Instructions: As directed gabapentin [Neurontin] 400 mg capsule 400 mg PO BID Qty: 180 3RF ondansetron 4 mg tablet,disintegrating 4 mg PO Q8 PRN (Reason: nausea) Qty: 20 1RF Rx Instructions: Take as needed for nausea omeprazole 20 mg capsule,delayed release(DR/EC) 20 mg PO DAILY Qty: 90 3RF betamethasone dipropionate 0.05 % cream 1 applic topical BID PRN (Reason: Skin Irritation) tavaborole 5 % solution with applicator 1 applic topical DAILY PRN (Reason: toenail fungus) fluocinonide 0.05 % cream 1 applic topical UD PRN (Reason: Skin Irritation) cholecalciferol (vitamin D3) 5,000 unit capsule 5,000 units PO HS rosuvastatin 5 mg tablet 5 mg PO QAM Qty: 90 3RF acetaminophen 325 mg tablet 650 mg PO Q6H PRN (Reason: Pain) Patient Comments: CONFIRMED W/ PT'S AND ON C DC SUMMARY-01/14/24 lorazepam [Ativan] 0.5 mg tablet 0.5 mg PO DAILY PRN (Reason: Anxiety) Qty: 30 0RF PreserVision AREDS [id number] Capsule 1 cap PO BID TheraTears 0.25 % Drops 1 drp OPHTHALMIC (EYE) BID sertraline [Zoloft] 100 mg tablet 100 mg PO QAM metoprolol succinate 25 mg tablet extended release 24 hr 25 mg PO QAM Eliquis 2.5 mg tablet 2.5 mg PO BID ketoconazole 2 % shampoo 1 applic topical Q14D PRN (Reason: Other) Discharge Orders: Discharge Order (Routine); Ordered 01/30/25 Ordered By: Josr Claros/Other Patient Handouts: Levetiracetam Oral Tablet, Visiting a [facility] Admission Data Admit Date/Time: 01/29/25 09:21 Attending Provider: Seth Solis Admit Provider: Seth Solis Primary Care Provider: Alice Azul Other Providers: Seth Solis; Gregg Weems Other Interventions: Discharge Summary Assessment (RN) Last Done: 01/30/25 12:39 Hospital Stay Data Consultations 01/29/25 08:11 ED Decision to Admit Stat 01/29/25 09:09 Consult Neurology Routine Diagnostic Imagining Performed 01/29/25 06:29 CT head/brain wo con Stat 01/29/25 09:09 MRI Brain [MR brain seizure wo/w con] Stat 01/29/25 09:13 US venous doppler LE LT Urgent Pending Results Patient Have Any Pending Studies at Discharge: No Discharge Instructions Given to Patient (Per Discharging Provider) You are hospitalized at [facility] from 01/29 for 01/30 after sustaining a seizure overnight at home. You reported that you have had prior seizures (5 in the past 3 years) which have all occurred overnight. While in the hospital, you had a full workup for seizure. Your blood work was reassuring (no elevation of lactate, prolactin, or creatinine kinase levels to indicate severe side effects of a seizure). Additionally a brain MRI was obtained, which did not reveal any acute intracranial abnormalities; no strokes. You were examined by our neurology team, who do not feel that you need to go undergo an additional EEG at this time, given you have had EEGs in the past that were normal. However, you should not be considered for an ambulatory EEG in the outpatient setting. While staying at [facility] overnight, you had a continuous pulse oximetry study performed. This study looks at oxygen saturation while you are sleeping. Overnight on 01/29, you had "49 desaturation events", which occur when your oxygen saturation dropped by 3% for more than 30 seconds, or your oxygen saturation is less than 89%. At 1 point, your oxygen saturation dropped to 73%. Mean oxygen saturation overnight 92%. It is suspected that hypoxia (or low oxygen saturation) is a potential trigger for your seizures. For this reason, we plan to send you home on supplemental oxygen to use at bedtime. Please wear a nasal cannula overnight, and use 2 L via nasal cannula while sleeping. We also recommend that you follow-up with your PCP in the next 7 to 10 days for a transitional care appointment, with the plan to set up a formal sleep study as an outpatient to assess for sleep apnea. For these reasons, we feel that you are safe to return home at this time. New prescription on discharge: - Levetiracetam ("Keppra") 500 mg tablets twice daily Keppra is a medication taken to prevent recurrence of seizures. Please see attached pamphlet for possible side effects. If you develop any new or worsening symptoms, such as recurrence of seizures, fever, chills, night sweats, difficulty breathing, cough, or respiratory distress, please return to the emergency department immediately. It was a pleasure take care of you. Please reach out with any questions or concerns. Sincerely, The Hospital medicine team at [facility] Supervising Physician Co-Signing Physician Notes Attending Attestation & Discharge Note: Chart reviewed, discharge care plan d/w TUNDE Hilliard. I agree w/ the boyle components of his discharge documentation. Of note - I did not perform a bedside visit or exam on day of discharge. 84yo female with HTN, paroxysmal atrial fibrillation, mitral regurgitation, sick sinus syndrome s/p pacemaker, and seizures. In the past all seizures have been at night-time. She presented to [facility] ER after her noted at least 40 minutes of seizure activity in the middle of the night. She did not have any tonic-clonic movements of the arms or legs, but was having rhythmic movements of her mouth and facial muscles. In addition, patient's reports she "fell out of bed" about 2 weeks ago. He thinks that she hit her head during that encounter. During the ER portion of her stay she was loaded with keppra 1500mg IV x 1. During the stay patient underwent MRI brain which was negative for any acute findings. She was seen by [facility] Neurology -- keppra 500mg BID was recommended for seizure control. She will take this in addition to gabapentin. She tolerated the keppra without apparent side effects. Given that the seizures are typically nocturnal there was concern for hypoxia- driven events. Overnight oximetry study indeed was abnormal showing numerous desaturation episodes suggestive of apnea. She will d/c home on NC O2 2 liters with sleep, and a formal sleep study is recommended as an outpatient. She should have f/u with [facility]rology within 3-4 weeks of discharge to check on her well-being with respect to her seizure d/o. Seth Solis MD Total Time Total Time Spent Total Time Spent (In Minutes): 45 Coding Level of Care Code 74410 INP/OBS DISCH >30 MIN Diagnoses Seizure R56.9 Hypoxia R09.02 Paroxysmal atrial fibrillation I48.0 Swelling of left lower extremity M79.89
[2025-01-30 12:23] VITALS: BP 124/60; PULSE 60; RESP 18
[2025-01-30] MEDS ORDERED: INFLUENZA VACC TS2025-26(65y+)/PF (IIV3) 0.5mL Syr IM ONE (15:08)
== END 2025-01-30 12:55 | disposition home or self-care (01) ==
LOC: SUATTDRO → ED 05:56 → EDINP 05:56 → 2E 12:20